=== PATIENT | female | born 1965 | race Two or more races ===

== ENCOUNTER → 2016-08-16 | Day surgery (SDC) | payer OTHER, MEDICARE, MEDICAID ==
[~2016-08-16] VITALS: Ht 167.6 cm; Wt 95.3 kg
[~2016-08-16] MED LIST: ACETAMINOPHEN 325 MG TAB PO PRN; ALLO100T PO; AMLO10TA2 PO; ATEN100T PO; AcetaZOLAMIDE 500 MG ER CAP PO ONE; BETA1CRE EXT; BETAPOW70 TOP; BSS with VANC/TOB/EPI for EYE CASES IR ONE; CALC1CAP PO; CARA1TAB2 PO; CINA30TA PO; COZA50TA PO; CYCLOPENTOLATE 2% OPHTH SOLN OS ONE; D 101TAB PO; D5W/0.2% SODIUM CHLORIDE 250 ML IV SCH; DOXY-278 PO; HEALON DUET (HEALON 10MG/ML 0.55ML & HEALON ENDOCOAT 30MG/ML 0.85ML) As Ordered ONE; HEALON DUET (HEALON 10MG/ML 0.55ML & HEALON ENDOCOAT 30MG/ML 0.85ML) XX ONE; JANU25TA PO; KETOROLAC 0.5% OPHTH SOLN OS ONE; LIDOCAINE 1% SDV 5 ML VIAL As Ordered ONE; LIDOCAINE 1% SDV 5 ML VIAL XX ONE; LIDOCAINE 4% INJ 5 ML AMP OU ONE; LIDOCAINE W/EPINEPHRINE 1% 20ML VIAL XX ONE; LR 1,000 ML IV SCH; MIDAZOLAM INJ 2 MG/2 ML VIAL (J2250) As Ordered ONE; MOXIFLOXACIN IN BSS 0.25MG/0.25ML INTRACAMERAL INJ (OR EYE ONLY)(J2280) As Ordered ONE; MOXIFLOXACIN IN BSS 0.25MG/0.25ML INTRACAMERAL INJ (OR EYE ONLY)(J2280) ICAM ONE; NAPR500T PO; OFLOXACIN 0.3 % (OCUFLOX) OPTH SOL 5ML OS ONE; ONDANSETRON 4MG/2ML VIAL (J2405) As Ordered ONE; ONDANSETRON 4MG/2ML VIAL (J2405) IV PRN; PANT40TA2 PO; PHENYLEPHRINE 2.5% OPHTH SOL 2ML OS ONE; POVIDONE-IODINE 5% OPHTH PREP SOL 30ML As Ordered ONE; PROPARACAINE 0.5% OPHTH SOL 15ML OS PRN; REGL5TAB2 PO; SIMV40TA2 PO; SITA50TAB PO; STOO100C PO; TRIAMCINOLONE PRES FR 40 MG/ML 1ML(TRIESENCE)(OR EYE ONLY)(J3300 PER 1MG) As Ordered ONE; TRIAMCINOLONE PRES FR 40 MG/ML 1ML(TRIESENCE)(OR EYE ONLY)(J3300 PER 1MG) IO ONE; TRIMETHOBENZAMIDE 300 MG CAP PO PRN; TROPICAMIDE 1% OPHTH SOLN 2 ML OS ONE; VITA400C29 PO; VOLT1GEL24 TD; [UNRECOGNIZED DRUG - CODE] EX; [UNRECOGNIZED DRUG - CODE] EXT; [UNRECOGNIZED DRUG - CODE] TOP; [UNRECOGNIZED DRUG - OTHER] TOP; fentaNYL 100 MCG/2 ML INJECTION (J3010) As Ordered ONE
[2016-08-16 11:30] VITALS: BP 106/67
== END | disposition home or self-care (01) ==
LOC: M SDC 09:37
PROVIDERS: ATTEND Ophthalmology
DX: H26.9 Unspecified cataract (principal); I12.0 Hypertensive chronic kidney disease with stage 5 chronic kidney disease or end stage renal disease; E11.22 Type 2 diabetes mellitus with diabetic chronic kidney disease; N18.6 End stage renal disease; E11.40 Type 2 diabetes mellitus with diabetic neuropathy, unspecified; E78.2 Mixed hyperlipidemia; E05.90 Thyrotoxicosis, unspecified without thyrotoxic crisis or storm; G47.9 Sleep disorder, unspecified; L24.9 Irritant contact dermatitis, unspecified cause; Z99.2 Dependence on renal dialysis; Z88.5 Allergy status to narcotic agent; E55.9 Vitamin D deficiency, unspecified; E21.3 Hyperparathyroidism, unspecified; K59.00 Constipation, unspecified; Z79.899 Other long term (current) drug therapy
CPT/HCPCS: 36415; 66984; 84132; J2250; J2280; J2405; J3010; J3300

== ENCOUNTER 2016-09-16 19:12 | Emergency (ER) | payer OTHER, MEDICARE, MEDICAID ==
[~2016-09-16] VITALS: Ht 167.6 cm; Wt 93.4 kg
[~2016-09-16 19:12] MED LIST changes: -ACETAMINOPHEN 325 MG TAB PO PRN; -ALLO100T PO; -AcetaZOLAMIDE 500 MG ER CAP PO ONE; -BETA1CRE EXT; -BETAPOW70 TOP; -BSS with VANC/TOB/EPI for EYE CASES IR ONE; -CARA1TAB2 PO; -CINA30TA PO; -CYCLOPENTOLATE 2% OPHTH SOLN OS ONE; -D 101TAB PO; -D5W/0.2% SODIUM CHLORIDE 250 ML IV SCH; -DOXY-278 PO; -HEALON DUET (HEALON 10MG/ML 0.55ML & HEALON ENDOCOAT 30MG/ML 0.85ML) As Ordered ONE; -HEALON DUET (HEALON 10MG/ML 0.55ML & HEALON ENDOCOAT 30MG/ML 0.85ML) XX ONE; -JANU25TA PO; -KETOROLAC 0.5% OPHTH SOLN OS ONE; -LIDOCAINE 1% SDV 5 ML VIAL As Ordered ONE; -LIDOCAINE 1% SDV 5 ML VIAL XX ONE; -LIDOCAINE 4% INJ 5 ML AMP OU ONE; -LIDOCAINE W/EPINEPHRINE 1% 20ML VIAL XX ONE; -LR 1,000 ML IV SCH; -MIDAZOLAM INJ 2 MG/2 ML VIAL (J2250) As Ordered ONE; -MOXIFLOXACIN IN BSS 0.25MG/0.25ML INTRACAMERAL INJ (OR EYE ONLY)(J2280) As Ordered ONE; -MOXIFLOXACIN IN BSS 0.25MG/0.25ML INTRACAMERAL INJ (OR EYE ONLY)(J2280) ICAM ONE; -NAPR500T PO; -OFLOXACIN 0.3 % (OCUFLOX) OPTH SOL 5ML OS ONE; -ONDANSETRON 4MG/2ML VIAL (J2405) As Ordered ONE; -ONDANSETRON 4MG/2ML VIAL (J2405) IV PRN; -PANT40TA2 PO; -PHENYLEPHRINE 2.5% OPHTH SOL 2ML OS ONE; -POVIDONE-IODINE 5% OPHTH PREP SOL 30ML As Ordered ONE; -PROPARACAINE 0.5% OPHTH SOL 15ML OS PRN; -REGL5TAB2 PO; -STOO100C PO; -TRIAMCINOLONE PRES FR 40 MG/ML 1ML(TRIESENCE)(OR EYE ONLY)(J3300 PER 1MG) As Ordered ONE; -TRIAMCINOLONE PRES FR 40 MG/ML 1ML(TRIESENCE)(OR EYE ONLY)(J3300 PER 1MG) IO ONE; -TRIMETHOBENZAMIDE 300 MG CAP PO PRN; -TROPICAMIDE 1% OPHTH SOLN 2 ML OS ONE; -VITA400C29 PO; -VOLT1GEL24 TD; -[UNRECOGNIZED DRUG - CODE] EX; -[UNRECOGNIZED DRUG - CODE] EXT; -[UNRECOGNIZED DRUG - CODE] TOP; -[UNRECOGNIZED DRUG - OTHER] TOP; -fentaNYL 100 MCG/2 ML INJECTION (J3010) As Ordered ONE
[2016-09-16] MEDS ORDERED: PANT40TA2 PO (19:39)
[2016-09-16] MEDS ORDERED: CINA30TA PO (19:39)
[2016-09-16] MEDS ORDERED: ALLO100T PO (19:39)
[2016-09-16] MEDS ORDERED: [UNRECOGNIZED DRUG - CODE] EX (19:39)
[2016-09-16] MEDS ORDERED: NITROGLYCERIN 0.4 MG SUBL TABLET SL PRN (20:00)
[2016-09-16 20:07] LABS: BASO # 0.1 K/mm3 (0.0-0.2); BASO % 0.7 % (0.0-1.0); EOS # 0.4 K/mm3 (0.0-0.50); EOS % 4.8 % (0.0-3.0); LARGE UNSTAINED CELL # 0.3 K/mm3 (0.0-0.4); LARGE UNSTAINED CELL % 2.9 % (0.0-4.0); LYMPH # 2.6 K/mm3 (1.5-4.5); LYMPH % 28.8 % (24.0-44.0); MEAN CORPUSCULAR HEMOGLOBIN 30.4 pg (27.0-33.0); MEAN CORPUSCULAR HGB CONC 32.4 g/dl (32.0-36.5); MEAN CORPUSCULAR VOLUME 93.8 fl (80.0-96.0); MONO # 0.5 K/mm3 (0.0-0.8); MONO % 6.1 % (0.0-5.0); NEUTROPHILS # 5.1 K/mm3 (1.8-7.7); NEUTROPHILS % 56.8 % (36.0-66.0); PLATELET COUNT, AUTOMATED 209 k/mm3 (150-450); RED CELL DISTRIBUTION WIDTH 15.5 % (11.5-14.5)
[2016-09-16] MEDS ORDERED: methylPREDNISolone INJ 125 MG/2 ML VIAL (J2930) IV ONE (20:15)
[2016-09-16] MEDS ORDERED: diphenhydrAMINE INJ 50MG/ML VIAL (J1200) IV ONE (20:15)
[2016-09-16] MEDS ORDERED: ONDANSETRON 4MG/2ML VIAL (J2405) IV ONE (20:15)
[2016-09-16 20:29] VITALS: BP 136/85
[2016-09-16] MEDS ORDERED: ISOVUE-370 76% 100ML VIAL (Q9967) As Ordered ONE (20:32)
[2016-09-16 20:41] LABS: CALCIUM LEVEL 9.3 MG/DL (8.5-10.1); CREATININE FOR GFR 8.02 MG/DL (0.55-1.02); GLOMERULAR FILTRATION RATE 5.6 (>51); POTASSIUM SERUM 4.5 MEQ/L (3.5-5.1)
--- NOTE | 2016-09-16 21:30 | REPUSA ---
CLINICAL HISTORY: Clinical concern for dissection. TECHNIQUE: CT chest with IV contrast. COMPARISON: No pertinent prior studies are available at this time. CT CHEST WITH CONTRAST: Pulmonary arteries: The central pulmonary arteries are patent. Lungs: No pneumothorax, infiltrate, masses or effusion. Heart: Normal size. No significant effusion. Aorta: Normal caliber, without aneurysm or dissection. Mediastinum and jazmyn: No lymphadenopathy. Bony thorax: No acute findings. Stomach: Small hiatal hernia noted. IMPRESSION: No acute thoracic process. No evidence of aortic aneurysm or dissection.
--- NOTE | 2016-09-16 21:40 | REPUSA ---
CLINICAL HISTORY: Clinical concern for dissection. TECHNIQUE: CT abdomen and pelvis following administration of IV contrast. COMPARISON: No pertinent prior studies are available at this time. CT ABDOMEN WITH CONTRAST: Stomach: Small hiatal hernia noted. Liver: No intrahepatic ductal dilation. Gallbladder: Normally distended. Pancreas: No pancreatic duct dilation. Bowel loops: Nondistended. Spleen: Normal size. Adrenals: Normal size. Kidneys: No stones or hydronephrosis. The renal cortices are thinned, consistent with chronic kidney disease. Aorta: Normal caliber. Peritoneum: No free air. CT PELVIS WITH CONTRAST: Colon: Nondistended. Appendix: Normal appendix is seen. Bladder: Normally distended. Pelvic organs: Patient appears to be status post hysterectomy. On axial image 128, there is a 3 cm ro unded lesion associated with the left adnexa. Peritoneum: No fluid. Skeleton: Degenerative cysts of the bilateral acetabular roofs. IMPRESSION: 1. No evidence of aortic dissection or aneurysm. 2. Hiatal hernia. 3. Renal cortical thinning suggesting chronic kidney disease. 4. 3 cm lesion or isodense cyst associated with the left adnexa. Correlate with pelvic ultrasound. Th e patient appears to be status post hysterectomy.
[2016-09-16] MEDS ORDERED: GI COCKTAIL 50ML BTL(HYOSCYAMINE/MAALOX/LIDOCAINE VISCOUS)(1:3:1) PO ONE (22:30)
[2016-09-16] MEDS ORDERED: CARA1TAB2 PO (23:37)
[2016-09-16 23:40] VITALS: BP 158/88
--- NOTE | 2016-09-17 06:42 | ECGEPIP ---
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
--- NOTE | 2016-09-17 19:34 | ED PDOC ---
Provider Note dr radha chavez faxed formal report of ct abd/p for Waldo Johnson MD Sep 17, 2016 19:34
--- NOTE | 2016-09-17 19:46 | ECGEPIP ---
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
[2016-09-27] MEDS ORDERED: DOXY-278 PO (10:12)
[2016-09-27] MEDS ORDERED: STOO100C PO (10:12)
[2016-09-27] MEDS ORDERED: BETAPOW70 TOP (10:12)
[2016-09-27] MEDS ORDERED: VITA400C29 PO (10:12)
[2016-09-27] MEDS ORDERED: [UNRECOGNIZED DRUG - OTHER] TOP (10:12)
[2016-09-27] MEDS ORDERED: [UNRECOGNIZED DRUG - CODE] EXT (10:12)
== END 2016-09-17 00:12 | disposition home or self-care (01) ==
LOC: M ED 20:31
DX: R07.89 Other chest pain (principal); K44.9 Diaphragmatic hernia without obstruction or gangrene; E11.22 Type 2 diabetes mellitus with diabetic chronic kidney disease; I25.10 Atherosclerotic heart disease of native coronary artery without angina pectoris; N18.9 Chronic kidney disease, unspecified; Z99.2 Dependence on renal dialysis; Z79.899 Other long term (current) drug therapy; Z79.2 Long term (current) use of antibiotics; Z79.84 Long term (current) use of oral hypoglycemic drugs; Z88.5 Allergy status to narcotic agent; Z91.013 Allergy to seafood
CPT/HCPCS: 36415; 71275; 74177; 80048; 82550; 82553; 85025; 93005; 93041; 94760; 96374; 96375; 99285; J1200; J2405; J2930; Q9967

== ENCOUNTER → 2016-10-04 | Day surgery (SDC) | payer OTHER, MEDICARE, MEDICAID ==
[~2016-10-04] VITALS: Ht 167.6 cm; Wt 93.0 kg
[~2016-10-04] MED LIST changes: +ACETAMINOPHEN 325 MG TAB PO PRN; +ALLO100T PO; +AcetaZOLAMIDE 500 MG ER CAP PO ONE; +BETA1CRE EXT; +BETAPOW70 TOP; +BSS with VANC/TOB/EPI for EYE CASES IR ONE; +CARA1TAB2 PO; +CINA30TA PO; +CYCLOPENTOLATE 2% OPHTH SOLN OD ONE; +D 101TAB PO; +D5W/0.2% SODIUM CHLORIDE 1,000 ML IV SCH; +DOXY-278 PO; +HEALON DUET (HEALON 10MG/ML 0.55ML & HEALON ENDOCOAT 30MG/ML 0.85ML) As Ordered ONE; +JANU25TA PO; +KETOROLAC 0.5% OPHTH SOLN OD ONE; +LIDOCAINE 1% SDV 5 ML VIAL As Ordered ONE; +LIDOCAINE 4% INJ 5 ML AMP OU ONE; +LIDOCAINE W/EPINEPHRINE 1% 20ML VIAL As Ordered ONE; +MIDAZOLAM INJ 2 MG/2 ML VIAL (J2250) As Ordered ONE; +MOXIFLOXACIN IN BSS 0.25MG/0.25ML INTRACAMERAL INJ (OR EYE ONLY)(J2280) As Ordered ONE; +NAPR500T PO; +OFLOXACIN 0.3 % (OCUFLOX) OPTH SOL 5ML OD ONE; +ONDANSETRON 4MG/2ML VIAL (J2405) As Ordered ONE; +ONDANSETRON 4MG/2ML VIAL (J2405) IV PRN; +PANT40TA2 PO; +PHENYLEPHRINE 2.5% OPHTH SOL 2ML OD ONE; +POVIDONE-IODINE 5% OPHTH PREP SOL 30ML As Ordered ONE; +PROPARACAINE 0.5% OPHTH SOL 15ML OD PRN; +REGL5TAB2 PO; +STOO100C PO; +TRIAMCINOLONE PRES FR 40 MG/ML 1ML(TRIESENCE)(OR EYE ONLY)(J3300 PER 1MG) As Ordered ONE; +TRIMETHOBENZAMIDE 300 MG CAP PO PRN; +TROPICAMIDE 1% OPHTH SOLN 2 ML OD ONE; +VITA400C29 PO; +VOLT1GEL24 TD; +[UNRECOGNIZED DRUG - CODE] EX; +[UNRECOGNIZED DRUG - CODE] EXT; +[UNRECOGNIZED DRUG - CODE] TOP; +[UNRECOGNIZED DRUG - OTHER] TOP; +fentaNYL 100 MCG/2 ML INJECTION (J3010) As Ordered ONE
[2016-10-04 08:20] VITALS: BP 132/78
== END | disposition home or self-care (01) ==
LOC: M SDC 05:54
PROVIDERS: ATTEND Ophthalmology
DX: H26.9 Unspecified cataract (principal); I12.0 Hypertensive chronic kidney disease with stage 5 chronic kidney disease or end stage renal disease; E78.5 Hyperlipidemia, unspecified; E11.22 Type 2 diabetes mellitus with diabetic chronic kidney disease; E03.9 Hypothyroidism, unspecified; K44.9 Diaphragmatic hernia without obstruction or gangrene; K21.9 Gastro-esophageal reflux disease without esophagitis; D64.9 Anemia, unspecified; J45.909 Unspecified asthma, uncomplicated; R06.83 Snoring; N18.6 End stage renal disease; Z88.5 Allergy status to narcotic agent; Z79.899 Other long term (current) drug therapy; Z90.710 Acquired absence of both cervix and uterus; Z98.51 Tubal ligation status
CPT/HCPCS: 36415; 66984; 84132; J2250; J2280; J2405; J3010; J3300; V2632

== ENCOUNTER 2016-10-14 14:42 | Observation (INO) | payer OTHER, MEDICARE, MEDICAID ==
[~2016-10-14] VITALS: Ht 167.6 cm; Wt 95.2 kg
[~2016-10-14 14:42] MED LIST changes: -ACETAMINOPHEN 325 MG TAB PO PRN; -AcetaZOLAMIDE 500 MG ER CAP PO ONE; -BETA1CRE EXT; -BSS with VANC/TOB/EPI for EYE CASES IR ONE; -CYCLOPENTOLATE 2% OPHTH SOLN OD ONE; -D 101TAB PO; -D5W/0.2% SODIUM CHLORIDE 1,000 ML IV SCH; -HEALON DUET (HEALON 10MG/ML 0.55ML & HEALON ENDOCOAT 30MG/ML 0.85ML) As Ordered ONE; -JANU25TA PO; -KETOROLAC 0.5% OPHTH SOLN OD ONE; -LIDOCAINE 1% SDV 5 ML VIAL As Ordered ONE; -LIDOCAINE 4% INJ 5 ML AMP OU ONE; -LIDOCAINE W/EPINEPHRINE 1% 20ML VIAL As Ordered ONE; -MIDAZOLAM INJ 2 MG/2 ML VIAL (J2250) As Ordered ONE; -MOXIFLOXACIN IN BSS 0.25MG/0.25ML INTRACAMERAL INJ (OR EYE ONLY)(J2280) As Ordered ONE; -NAPR500T PO; -OFLOXACIN 0.3 % (OCUFLOX) OPTH SOL 5ML OD ONE; -ONDANSETRON 4MG/2ML VIAL (J2405) As Ordered ONE; -ONDANSETRON 4MG/2ML VIAL (J2405) IV PRN; -PHENYLEPHRINE 2.5% OPHTH SOL 2ML OD ONE; -POVIDONE-IODINE 5% OPHTH PREP SOL 30ML As Ordered ONE; -PROPARACAINE 0.5% OPHTH SOL 15ML OD PRN; -REGL5TAB2 PO; -TRIAMCINOLONE PRES FR 40 MG/ML 1ML(TRIESENCE)(OR EYE ONLY)(J3300 PER 1MG) As Ordered ONE; -TRIMETHOBENZAMIDE 300 MG CAP PO PRN; -TROPICAMIDE 1% OPHTH SOLN 2 ML OD ONE; -VOLT1GEL24 TD; -[UNRECOGNIZED DRUG - CODE] TOP; -fentaNYL 100 MCG/2 ML INJECTION (J3010) As Ordered ONE
[2016-10-14] MEDS ORDERED: ONDANSETRON 4MG/2ML VIAL (J2405) IV ONE (15:00)
[2016-10-14 15:33] LABS: BASO # 0.1 K/mm3 (0.0-0.2); BASO % 0.7 % (0.0-1.0); EOS # 0.5 K/mm3 (0.0-0.50); EOS % 5.2 % (0.0-3.0); LARGE UNSTAINED CELL # 0.2 K/mm3 (0.0-0.4); LARGE UNSTAINED CELL % 2.7 % (0.0-4.0); LYMPH % 18.9 % (24.0-44.0); MEAN CORPUSCULAR HEMOGLOBIN 31.7 pg (27.0-33.0); MEAN CORPUSCULAR HGB CONC 32.1 g/dl (32.0-36.5); MEAN CORPUSCULAR VOLUME 98.6 fl (80.0-96.0); MONO # 0.6 K/mm3 (0.0-0.8); MONO % 6.5 % (0.0-5.0); PLATELET COUNT, AUTOMATED 188 k/mm3 (150-450); RED CELL DISTRIBUTION WIDTH 17.3 % (11.5-14.5); WHITE BLOOD COUNT 9.1 K/mm3 (4.0-10.0)
[2016-10-14 15:57] LABS: ALBUMIN 3.6 GM/DL (3.2-5.2); ALBUMIN/GLOBULIN RATIO 0.68 (1.00-1.93); ALKALINE PHOSPHATASE 71 U/L (45-117); ALT/SGPT 17 U/L (12-78); ANION GAP 6 MEQ/L (8-16); AST/SGOT 11 U/L (15-37); BILIRUBIN,DIRECT < 0.1 MG/DL (0.0-0.2); BILIRUBIN,TOTAL 0.4 MG/DL (0.2-1.0); BLOOD UREA NITROGEN 26 MG/DL (7-18); CALCIUM LEVEL 8.7 MG/DL (8.5-10.1); CARBON DIOXIDE LEVEL 33 MEQ/L (21-32); CHLORIDE LEVEL 99 MEQ/L (98-107); CREATININE FOR GFR 6.23 MG/DL (0.55-1.02); GLOMERULAR FILTRATION RATE 7.5 (>51); GLUCOSE, FASTING 102 MG/DL (70-105); SODIUM LEVEL 138 MEQ/L (136-145); TOTAL PROTEIN 8.9 GM/DL (6.4-8.2)
[2016-10-14] MEDS ORDERED: VOLT1GEL24 TD (16:58)
[2016-10-14] MEDS ORDERED: REGL5TAB2 PO (16:58)
[2016-10-14] MEDS ORDERED: BISACODYL 5 MG TAB PO PRN (17:15)
[2016-10-14] MEDS ORDERED: ONDANSETRON 4MG/2ML VIAL (J2405) IV PRN (17:15)
[2016-10-14] MEDS ORDERED: GLUCOSE 4 GM CHEW TABLET PO PRN (17:30)
[2016-10-14] MEDS ORDERED: GLUCAGON FOR INJ 1 MG VIAL (J1610) SC PRN (17:30)
[2016-10-14] MEDS: SUCRALFATE 1 GM TAB PO SCH ×3 (17:30→21:21)
[2016-10-14] MEDS: HumaLOG INSULIN (NovoLOG) PER UNIT SC SCH ×2 (17:30→21:04)
[2016-10-14] MEDS ORDERED: DEXTROSE 50% 50 ML SYRINGE IV PRN (17:30)
[2016-10-14] MEDS ORDERED: METOCLOPRAMIDE 5 MG TAB PO PRN (17:30)
[2016-10-14] MEDS ORDERED: BETA1CRE EXT (17:39)
[2016-10-14] MEDS ORDERED: D 101TAB PO (17:43)
[2016-10-14] MEDS ORDERED: JANU25TA PO (17:49)
[2016-10-14] MEDS ORDERED: CARA1TAB2 PO (17:49)
[2016-10-14] MEDS ORDERED: [UNRECOGNIZED DRUG - CODE] TOP (17:51)
--- NOTE | 2016-10-14 18:47 | HPEPDOC ---
General Date of Admission Oct 14, 2016 at 17:33 Primary Care Physician: MARY CASTILLO DO Chief Complaint The patient is a 51-year-old female admitted with a reason for visit of AMS. Source: Patient, Family Exam Limitations: Other (pt has decreased memory of events that occurred this morning prior to her dialysis treatment) Timing/Duration: 4-6 hours Severity: Severe History of Present Illness Ms Posadas is a 51 y/o female with past medical history of HTN, DM2, chronic kidney disease on dialysis, asthma and hyperlipidemia who presents today after she was in dialysis this afternoon and "fell asleep". The patient reports that she remembers going to dialysis and beginning treatment but thinks she fell asleep after that, she has no idea why she is in the ED now. She can tell me her full name, but does not know the month unless she looks at a calender, she did not know who the president of the was, she did know she was at [facility] in [place], [place] because she looked down at a paper that contained the [facility] name and location. Per her daughters who are at bedside, they state this is not her baseline and she is usually spry and alert. She was seen here in the ED in the fall of 2015 for atypical CP that was thought to be due to a hiatal hernia, but per the daughter she states her mother had a similar episode of decreased memory that lasted for a few hours at that time. The patient denies experiencing any CP, SOB , admits to chronic nausea and vomiting from dialysis, she denies diarrhea or constipation, fever, chills or rigors, denies abdominal pain.The patient does admit that she has had a productive cough of clear yellow phlegm for the past few days and a reported temperature of >100F nights ago. She denies headache or blurred vision, denies numbness or weakness to any part of her body except for this morning when she states she woke up with right foot numbness that went away after a couple hours, this was new for her. There have been no change in her medications, she attends dialysis three times a week ( T,R ,S) and has not missed any appts. She takes her medications religiously, and her appetite has been normal. The last thing she remembers is being at dialysis , she remembers bits and pieces of her morning at home but cannot recall making breakfast for her family or taking care of her grandchildren, activities her daughters say she partook in this morning. Home Medications Scheduled Allopurinol (Allopurinol) 100 Mg Tab 100 MG PO DAILY (Reported) Amlodipine Besylate (Amlodipine Besylate) 10 Mg Tab 10 MG PO QHS (Reported) Atenolol (Atenolol) 100 Mg Tab 100 MG PO QHS (Reported) Benzoyl Peroxide (Advanced Acne Wash) 4.4 % Liq 1 DOSE EXT DAILY (Reported) applies to face Calcium Acetate (Calcium Acetate) 667 Mg Cap 1,334 MG PO WM (Reported) takes additional 2 capsules with snacks Cholecalciferol (D 1000) 1,000 Unit Tab 1,000 UNIT PO DAILY (Reported) Cinacalcet Hydrochloride (Sensipar) 30 Mg Tab 30 MG PO 1XWK (Reported) unknown which day of the week pt takes, can't give me last dose Docusate Sodium (Stool Softener) 100 Mg Cap 200 MG PO BID (Reported) Doxycycline Hyclate (Doxycycline) 100 Mg Cap 100 MG PO DAILY (Reported) Losartan Potassium (Cozaar) 50 Mg Tab 50 MG PO QHS (Reported) Pantoprazole Sodium (Pantoprazole Sodium) 40 Mg Tab 40 MG PO DAILY (Reported) Simvastatin - High Dose (Simvastatin) 40 Mg Tab 40 MG PO QHS (Reported) Sitagliptin Phosphate (Januvia) 25 Mg Tab 25 MG PO QHS (Reported) Tretinoin (Tretinoin) 0.1 % Cre 1 DOSE TOP BID (Reported) applies to face Scheduled PRN (Voltaren) 1 % Gel 1 % TD DAILY PRN PRN knee pain (Reported) Betamethasone Dipropionate (Betamethasone Dipropionat) 15 Gm Cream 1 DOSE EXT DAILY PRN PRN ITCHING (Reported) applies to ears Metoclopramide Hcl (Reglan) 5 Mg Tab 5 MG PO ACHS PRN PRN NAUSEA OR VOMITING ( Reported) Allergies Coded Allergies: Hydrocodone (Verified Adverse Reaction, Mild, N/V, 08/14/16) Morphine (Verified Adverse Reaction, Mild, N/V, 08/14/16) Past Medical History Medical History HTN hyperlipidemia DM2 Chronic kidney disease on dialysis asthma Surgical History hysterectomy b/l cataract surgery left carpal tunnel release Family History Significant Family History: Diabetes, Hyperlipidemia, Other (stroke in mother) Social History * Smoker: Denies Alcohol: Denies Drugs: denies Psychosocial History: No pertinent psych hx retired, lives at home Review of Symptoms Constitutional: Denies: Chills, Fatigue, Fever, Malaise, Night Sweats, Weakness , Weight Loss Eyes: Denies: Conjunctivae inflammation, Eyelid inflammation, Pain, Redness, Vision change ENT: Denies: Dysphagia, Ear Pain, Head Aches, Sinus Congestion Skin: Denies: Jaundice, Lesions, Rash Pulmonary: Denies: Cough, Dyspnea, Pleuritic Chest Pain Cardiovascular: Denies: Chest Pain, Edema, Lt Headedness, Orthopnea, Palpitations, Paroxysmal Noc. Dyspnea Gastrointestinal: Denies: Abdominal Pain, Constipation, Diarrhea, Nausea, Vomiting Genitourinary: Denies: Dysuria Neurological: Reports: Confusion, Denies: Change in speech, Incoordination, Numbness, Weakness Psych: Reports: Memory Issues, Mood Normal Physical Examination General Exam: Positive: Alert, Cooperative, Moderate Distress, Other (knows her own name, cannot tell me the president nor month, knows where she is by looking at paper with the hospital name and location ) Eye Exam: Positive: Conjunctiva & lids normal, EOMI, PERRLA, Negative: Ptosis, Sclera icteric ENT Exam: Positive: Atraumatic, Mucous membr. moist/pink, Nares Patent, Pharynx Normal, Tongue Midline, Negative: Pharyngeal Edema Neck Exam: Positive: Supple Chest Exam: Positive: Clear to auscultation, Normal air movement, Negative: Diminished, Rales, Rhonchi, Wheezing Heart Exam: Positive: Normal S1, Normal S2, Rate Normal, Regular Rhythm, Negative: Bradycardic, Tachycardic Telemetry: Positive: No significant arrhythmia Abdomen Exam: Positive: Normal bowel sounds, Negative: BS Hyperactive, BS Hypoactive, Hepatospenomegaly, Mass, Soft, Tenderness Extremity Exam: Positive: Normal pulses, Negative: Clubbing, Cyanosis, Edema Skin Exam: Positive: Nl turgor and temperature, Negative: Breakdown, Rash Neuro Exam: Positive: Cranial Nerves 3-12 NL, Normal Speech, Normal Tone, Sensation Intact, Strength at 5/5 X4 ext Psych Exam: Positive: Mental status NL, Negative: Anxiety, Memory Intact, Oriented x 3 Vital Signs Vital Signs Date Time Temp Pulse Resp B/P Pulse Ox O2 Delivery O2 Flow Rate FiO2 10/14/16 18:25 98.5 10/14/16 18:12 69 18 96 10/14/16 18:01 156/78 10/14/16 15:57 Room Air Laboratory Data Labs 24H Laboratory Tests 2 10/14/16 15:13: Aspartate Amino Transf (AST/SGOT) 11L, Alanine Aminotransferase (ALT/SGPT) 17, Alkaline Phosphatase 71, Total Bilirubin 0.4, Direct Bilirubin < 0.1, Albumin 3.6, Albumin/Globulin Ratio 0.68L, Anion Gap 6L, White Blood Count 9.1, Red Blood Count 3.76L, Hemoglobin 11.9L, Hematocrit 37.0, Mean Corpuscular Volume 98.6H, Mean Corpuscular Hemoglobin 31.7, Mean Corpuscular Hemoglobin Concent 32.1, Red Cell Distribution Width 17.3H, Platelet Count 188, Neutrophils (%) ( Auto) 66.0, Lymphocytes (%) (Auto) 18.9L, Monocytes (%) (Auto) 6.5H, Eosinophils (%) (Auto) 5.2H, Basophils (%) (Auto) 0.7, Neutrophils # (Auto) 6.0 , Lymphocytes # (Auto) 2.0, Monocytes # (Auto) 0.6, Eosinophils # (Auto) 0.5, Basophils # (Auto) 0.1, Calcium Level 8.7, Creatine Kinase MB 1.0, Creatine Kinase MB Relative Index 1.14, Glomerular Filtration Rate 7.5L, Large Unclassified Cells # 0.2, Large Unclassified Cells % 2.7, Thyroid Stimulating Hormone (TSH) 3.510, Total Creatine Kinase 87, Total Protein 8.9H, Troponin I 0.02 10/14/16 17:43: Ammonia 44H CBC/BMP Laboratory Tests 10/14/16 15:13 Red Blood Count 3.76 L, Mean Corpuscular Volume 98.6 H, Mean Corpuscular Hemoglobin 31.7, Mean Corpuscular Hemoglobin Concent 32.1, Red Cell Distribution Width 17.3 H, Neutrophils (%) (Auto) 66.0, Lymphocytes (%) (Auto) 18.9 L, Monocytes (%) (Auto) 6.5 H, Eosinophils (%) (Auto) 5.2 H, Basophils (%) (Auto) 0.7, Neutrophils # (Auto) 6.0, Lymphocytes # (Auto) 2.0, Monocytes # ( Auto) 0.6, Eosinophils # (Auto) 0.5, Basophils # (Auto) 0.1 Problems (1) Hyperlipidemia Status: Chronic Response to Treatment: Stable Problem Text: continue home medications (2) Altered mental status Status: Acute Response to Treatment: Stable Problem Text: head CT and MRI pending ammonia elevated to 44 EKG in ED non concerning for arrhythmic focus trend troponins possible infectious etiology- will check U/A, currently afebrile with wbc of 9.1 neuro checks q4h (3) Hypertension Status: Chronic Response to Treatment: Stable Problem Text: continue home medications currently 155/89 (4) Diabetes Status: Chronic Response to Treatment: Stable Problem Text: Sliding scale coverage (5) Hepatic encephalopathy Status: Acute Response to Treatment: Stable Problem Text: elevated ammonia to 44 will give lactulose and repeat ammonia at midnight (6) ESRD (end stage renal disease) on dialysis Status: Acute Problem Text: Nephrology consulted- appreciate their recommendations Strict I&O's D5W fluid (7) DVT prophylaxis Status: Acute Problem Text: SCDs Plan / VTE VTE Prophylaxis Ordered?: Yes GME ATTESTATION GME ATTESTATION My preceptor for this patient encounter was physically present in the building during the encounter and was fully available. As needed, all aspects of the patient interview, examination, medical decision making process, and medical care plan development were reviewed and approved by the preceptor. Preceptor is aware and concurs with the plan as stated in the body of this note and will attest to such by his/her cosignature. SHAMAR CHAPMAN DO Oct 14, 2016 18:47
--- NOTE | 2016-10-14 20:40 | REPUSA ---
MRI of the brain Clinical history: confusion, memory loss. Comparison: none. Technique: Multiecho multiplanar MRI images of the brain were obtained without administration of cont rast. Diffusion weighted images with ADC mapping was also obtained. Findings: The ventricles and sulci are symmetric bilaterally. The brain parenchyma demonstrates uniform and nor mal signal on all sequences. There is no midline shift, mass effect, or extra-axial fluid collection. The midline intracranial structures do not demonstrate any gross abnormalities. The cervical cranial junction is intact. The orbits are unremarkable. The visualized paranasal sinuses and mastoid air ce lls are clear. The osseous structures and superficial soft tissues are unremarkable. The vascular str uctures demonstrate appropriate flow voids. Impression: Normal MRI of the Brain.
[2016-10-14] MEDS: PANTOPRAZOLE 40MG TAB (PROTONIX) PO SCH (21:04)
[2016-10-14] MEDS: DOCUSATE SODIUM 100 MG CAP PO SCH (21:11)
[2016-10-14] MEDS: LACTULOSE 20 GM/30 ML SYRUP UD PO SCH ×3 (21:19→23:30)
[2016-10-14] MEDS: amLODIPine 10 MG TAB PO SCH (21:19)
[2016-10-14] MEDS: ATENOLOL 50 MG TAB PO SCH (21:19)
[2016-10-14] MEDS: LOSARTAN 50 MG TAB PO SCH (21:19)
[2016-10-14] MEDS: SITagliptin 50 MG TAB (JANUVIA) PO SCH (21:20)
[2016-10-14 21:30] VITALS: BP 135/83
[2016-10-14] MEDS: SIMVASTATIN 40 MG TAB PO SCH (21:30)
[2016-10-14 22:50] VITALS: BP 138/78
[2016-10-15] VITALS (7 sets, daily range): BP systolic 103–158; BP diastolic 57–86
[2016-10-15] MEDS ORDERED: CALCIUM ACETATE 667 MG GELCAP PO PRN (03:45)
[2016-10-15 05:58] LABS: BASO % 0.6 % (0.0-1.0); EOS # 0.5 K/mm3 (0.0-0.50); EOS % 5.9 % (0.0-3.0); LARGE UNSTAINED CELL # 0.5 K/mm3 (0.0-0.4); LYMPH # 2.8 K/mm3 (1.5-4.5); LYMPH % 26.6 % (24.0-44.0); MEAN CORPUSCULAR HEMOGLOBIN 31.1 pg (27.0-33.0); MEAN CORPUSCULAR HGB CONC 31.1 g/dl (32.0-36.5); MONO # 0.8 K/mm3 (0.0-0.8); MONO % 8.7 % (0.0-5.0); NEUTROPHILS # 4.7 K/mm3 (1.8-7.7); NEUTROPHILS % 53.2 % (36.0-66.0); PLATELET COUNT, AUTOMATED 174 k/mm3 (150-450); RED CELL DISTRIBUTION WIDTH 17.3 % (11.5-14.5); WHITE BLOOD COUNT 8.8 K/mm3 (4.0-10.0)
[2016-10-15 06:22] LABS: CALCIUM LEVEL 8.3 MG/DL (8.5-10.1); CREATININE FOR GFR 9.33 MG/DL (0.55-1.02); GLOMERULAR FILTRATION RATE 4.7 (>51); POTASSIUM SERUM 4.7 MEQ/L (3.5-5.1)
[2016-10-15] MEDS: HumaLOG INSULIN (NovoLOG) PER UNIT SC SCH ×4 (07:04→21:00)
--- NOTE | 2016-10-15 07:26 | REP ---
AP PORTABLE CHEST: 10/14/2016. Clinical history: Altered mental status. Comparison: CT angiogram chest 09/16/2016. Findings: Lungs are hypoinflated. This exaggerates the heart size. There is slight tortuosity of the aorta but no aneurysm. Airway is intact. Crowded markings in the bases. No dense consolidation, effusion, lateral pleural thickening. No apical scarring or pneumothorax. Bones grossly intact. Impression: 1. Hypoinflated chest with crowded markings in the lung bases without definite consolidation, effusion, pleural thickening or mass. The portable chest magnifies heart size and aortic tortuosity but no acute finding. Signed by Christian Bagley MD 10/15/2016 08:04 A
--- NOTE | 2016-10-15 07:27 | REP ---
CT BRAIN WITHOUT CONTRAST: 10/14/2016. Clinical history: Altered mental status. Findings: There are no prior pertinent studies. Soft tissue and bone windows are reviewed for each slice level. Ventricles are midline, symmetric and without dilatation or displacement. Basal ganglia are symmetric and normal. A few benign calcifications are seen along the falx. The stinson-white junction differentiation is well maintained. There is no vascular territory infarct, intracranial hemorrhage, mass or mass effect. The cortical stripe is preserved. There is no atrophy. Brainstem and cerebellum are grossly intact. The basal cisterns are unremarkable. Mastoids and visualized sinuses were clear. The calvarium and skull base were unremarkable. Impression: 1. Negative CT brain for any acute finding. No intracranial bleed, mass, edema or other abnormality. Signed by Christian Bagley MD 10/15/2016 08:05 A
[2016-10-15] MEDS: SUCRALFATE 1 GM TAB PO SCH ×4 (07:52→21:09)
[2016-10-15] MEDS: CALCIUM ACETATE 667 MG GELCAP PO SCH ×3 (08:02→17:35)
[2016-10-15] MEDS ORDERED: CINACALCET 30 MG TAB (SENSIPAR) PO SCH (09:00)
[2016-10-15] MEDS: PANTOPRAZOLE 40MG TAB (PROTONIX) PO SCH (09:05)
[2016-10-15] MEDS: VITAMIN D 1,000 INTERNATIONAL UNITS TABLET PO SCH (09:05)
[2016-10-15] MEDS: ALLOPURINOL 100 MG TAB PO SCH (09:05)
[2016-10-15] MEDS: DOCUSATE SODIUM 100 MG CAP PO SCH ×2 (09:05→21:08)
[2016-10-15 09:22] LABS: MAGNESIUM LEVEL 2.5 MG/DL (1.8-2.4)
--- NOTE | 2016-10-15 11:33 | REP ---
CT CHEST WITHOUT CONTRAST: 10/15/2016. Comparison: Portable chest 10/14/2016, CTA chest 09/16/2016. Clinical history: Suspected infiltrate. Technique: Helical scanning through the chest without IV contrast with both coronal and sagittal reconstructions and soft tissue windows and lung window coronal MIP thick slab reformat. Findings: The lung sun are well inflated. There is no pleural effusion, pleural-based mass or acute infiltrate. I see no definite parenchymal nodule or mass. No apical scarring or pneumothorax and no pneumomediastinum. Heart is mildly enlarged with left atrial and ventricular enlargement. There is no pericardial thickening or effusion. No pathologic sized mediastinal or hilar adenopathy. Some calcifications noted at the aortic arch but no aneurysm. No hilar mass. The axillary and supraclavicular regions are without focal abnormality. The bone windows show some degenerative changes mid and lower thoracic spine without compression deformity. Sternum, manubrium, clavicles, AC joints and glenohumeral joints show only mild degenerative change without destructive lesions. Scapula and ribs and posterior elements of the spine unremarkable. In the upper abdomen, visible portions of the liver show no focal lesion. The liver is not enlarged. There is no splenomegaly or focal splenic lesion. Small hiatal hernia suggested. The gallbladder is contracted without a calcified stone visible. Visualized loops of colon in the flexures and portions of transverse colon included were unremarkable. Small bowel loops intact. Adrenal glands normal. Kidneys are severely atrophic with sinus lipomatosis. A small cyst about 7 mm and another about 5 mm laterally upper pole on the right. No stone or hydronephrosis. Impression: 1. No CT evidence of infiltrate, effusion, atelectasis or mass. No pulmonary nodule. Nothing acute. 2. Small hiatal hernia. 3. Cardiomegaly with left atrial and ventricular enlargement. No pericardial effusion. 4. Advanced atrophy of the kidneys with cortical thinning and sinus lipomatosis. No hydronephrosis or solid mass. A few small cysts on the right kidney. Signed by Christian Bagley MD 10/15/2016 07:30 P
[2016-10-15] MEDS: ACETAMINOPHEN TAB 650MG DOSE (2X325MG) PO PRN (11:57)
--- NOTE | 2016-10-15 12:09 | CR ---
DATE OF CONSULTATION: 10/14/2016 Consultation report for Donna Augustine MD. Reason for consultation is altered mentation in this lady with end-stage renal disease. HISTORY OF PRESENT ILLNESS: Ms. Oconnor is a 51-year-old female with known history of end-stage renal disease, hypertension, diabetes and hyperlipidemia. She came for her regular dialysis treatment as an outpatient. However, she was somewhat restless. She did fall asleep during dialysis and at the end of treatment she was found to be quite confused. She could not recall how did she arrive to dialysis unit. Her mentation did not improve after several minutes of waiting due to which she was sent to emergency room for evaluation. CAT scan of head and labs have been checked, which are appropriate. There is no obvious reason for her altered mentation. She is being admitted for observation due to memory deficit. At present, she is able to talk and answer questions. She does not seem to be too far from her baseline mentation. PAST MEDICAL AND SURGICAL HISTORY: Significant for: 1. Hypertension. 2. Diabetes. 3. Hyperlipidemia. 4. End-stage renal disease. 5. Asthma. 6. Gout. 7. Secondary hyperparathyroidism. 8. Acne. MEDICATIONS: Home medications include: - allopurinol 100 mg daily - amlodipine 10 mg daily - atenolol 100 mg daily - calcium acetate two capsules with each meal - vitamin D 1000 units daily - Sensipar 30 mg once a week - Colace 100 mg twice a day - doxycycline 100 mg daily - losartan 50 mg at bedtime - Protonix 40 mg daily - simvastatin 40 mg at bedtime - Januvia 25 mg at bedtime - tretinoin 0.1% cream twice a day ALLERGIES: Patient reports allergy to HYDROCODONE and MORPHINE. PERSONAL AND SOCIAL HISTORY: Patient has no history of alcohol, drug or tobacco use. Family history is negative for premature strokes. There is no past family history for end-stage renal disease. She does have diabetes and hyperlipidemia in her family. REVIEW OF SYSTEMS: At the time of my visit in the emergency room, patient is able to answer all questions. She has no fever or chills. She denies any headache. Ears, nose and throat are unremarkable. Cardiovascular system negative for dyspnea or chest pain. Respiratory system negative for cough or hemoptysis. Gastrointestinal (GI) system is negative for vomiting or diarrhea. She denies any abdominal pain. Genitourinary () system is significant for end-stage renal disease. There is no dysuria or hematuria reported. Endocrine system is significant for diabetes and hyperlipidemia. Psychosocial system is negative for anxiety or depression. Neurological system is negative for seizure or stroke previously. Musculoskeletal system is significant for history of gout. She has no leg edema. Other systems reviewed and are unremarkable. PHYSICAL EXAMINATION: Temperature 98.3 degrees Fahrenheit, heart rate 72 per minute and respiratory rate 18 per minute. Blood pressure 135/83 mmHg and oxygen saturation 98% on room air. Ears, nose and throat are unremarkable. Pupils equal and reactive to light and sclera is anicteric. Neck is supple and without jugular venous distention (JVD) or thyroid enlargement. Heart sounds are regular and lungs clear to auscultation bilaterally. Abdomen soft and nontender. There is no palpable organomegaly and bowel sounds are normal. Extremities have no cyanosis or clubbing. Skin has no rash or ulcers. Neurologically, she is awake and alert and seems to be at about her baseline mentation. LABORATORY DATA: WBC count 9.1, hemoglobin 11.9 and hematocrit 37.0. Platelets 188. Sodium 138 and potassium 4.0. BUN 26 and creatinine 6.23. Serum ammonia level is 44. Total protein 8.9 and albumin 3.6. TSH 3.51. Urinalysis showed only 3 WBCs and [address] scan of head is unremarkable. PROBLEMS: 1. End-stage renal disease. Patient was dialyzed today prior to arrival to the emergency room. She completed her dialysis treatment. Her labs are appropriate and volume status is well-compensated. We will monitor her and at this point, there is no emergent need for further dialysis. 2. Altered mentation. Etiology remains uncertain. She did not have any significant hypotension during dialysis treatment today. Her dialysis treatment was uneventful other than restlessness. She denies using any new medication. There is certainly no evidence of uremic encephalopathy. She just had her MRI of brain and results are pending at the time of my visit. She does not seem to have any acute infection. However, does have a history of some cough and cold. She may have viral infection and we will need to monitor her. 3. Anemia. Her anemia is stable at present and does not need any intervention. Thank you for involving me in the care of Ms. Posadas. I will follow her along with you.
--- NOTE | 2016-10-15 13:33 | IPNPDOC ---
Text Note Date of Service The patient was seen on 10/15/16. NOTE Subjective: Patient denies any complaints. Has occasional palpitations. No chest pain or shortness of breath. Objective: Vitals: (see below) General: No acute distress, laying comfortably in bed. HEENT: Moist mucous membranes. Neck: No JVD or lymphadenopathy Cardiac: RRR, No murmurs Pulm: Clear to auscultation b/l. No wheezing, rhonchi Abd: NT/ND + BS Ext: No edema or cyanosis Neuro: Strength 5/5 BUE and BLE. CN 2-12 intact. AAO 3, following all commands Labs (see below) Images: MRI Brain 10/14/16 Impression: Normal MRI of the Brain CXR 10/14/16 Impression: 1. Hypoinflated chest with crowded markings in the lung bases without definite consolidation, effusion, pleural thickening or mass. The portable chest magnifies heart size and aortic tortuosity but no acute finding. CT Chest 10/14/16 Impression: 1. No CT evidence of infiltrate, effusion, atelectasis or mass. No pulmonary nodule. Nothing acute. 2. Small hiatal hernia. 3. Cardiomegaly with left atrial and ventricular enlargement. No pericardial effusion. 4. Advanced atrophy of the kidneys with cortical thinning and sinus lipomatosis. No hydronephrosis or solid mass. A few small cysts on the right kidney. Assessment/Plan 1. Altered mental status- may be related to transient episode of hypotension. ? Recent viral upper respiratory tract infection. Respiratory panel pending. Chest x-ray/CT chest negative for pneumonia. Elevated ammonia level however CT abdomen and pelvis on 09/2016 with normal liver size. LFTs within normal limits. Electrolytes within normal limits. MRI of the brain negative. 2. Palpitations with SVT- patient is on atenolol. Goal magnesium > 2, potassium > 4. Echocardiogram pending 3. End-stage renal disease on hemodialysis; appreciate Dr. Benitez's input 4. Diabetes mellitus- sliding scale insulin/Januvia 5. Hypertension- controlled 6. Hyperlipidemia- on statin DVT prophy: Heparin SQ VS,Fishbone, I+O VS, Fishbone, I+O Laboratory Tests 10/14/16 15:13 Red Blood Count 3.76 L, Mean Corpuscular Volume 98.6 H, Mean Corpuscular Hemoglobin 31.7, Mean Corpuscular Hemoglobin Concent 32.1, Red Cell Distribution Width 17.3 H, Neutrophils (%) (Auto) 66.0, Lymphocytes (%) (Auto) 18.9 L, Monocytes (%) (Auto) 6.5 H, Eosinophils (%) (Auto) 5.2 H, Basophils (%) (Auto) 0.7, Neutrophils # (Auto) 6.0, Lymphocytes # (Auto) 2.0, Monocytes # ( Auto) 0.6, Eosinophils # (Auto) 0.5, Basophils # (Auto) 0.1 10/15/16 05:38 Red Blood Count 3.44 L, Mean Corpuscular Volume 100.0 H, Mean Corpuscular Hemoglobin 31.1, Mean Corpuscular Hemoglobin Concent 31.1 L, Red Cell Distribution Width 17.3 H, Neutrophils (%) (Auto) 53.2, Lymphocytes (%) (Auto) 26.6, Monocytes (%) (Auto) 8.7 H, Eosinophils (%) (Auto) 5.9 H, Basophils (%) ( Auto) 0.6, Neutrophils # (Auto) 4.7, Lymphocytes # (Auto) 2.8, Monocytes # (Auto ) 0.8, Eosinophils # (Auto) 0.5, Basophils # (Auto) 0.0, Calcium Level 8.3 L, Total Creatine Kinase 66 Vital Signs Date Time Temp Pulse Resp B/P Pulse Ox O2 Delivery O2 Flow Rate FiO2 10/15/16 12:00 97.8 66 19 158/86 99 Room Air I&O- Last 24 Hours up to 6 AM 10/15/16 06:00 Intake Total 820 ml Output Total 30 ml Balance 790 ml LILI GILLESPIE MD Oct 15, 2016 13:33
--- NOTE | 2016-10-15 14:02 | ECHO ---
DATE OF PROCEDURE: 10/15/2016 REFERRING PHYSICIAN: Dr. Eller and Dr. Augustine. INDICATION: Altered mental status in 51-year-old female with end-stage renal disease on dialysis with diabetes and hypertension. HEIGHT: 66 inches. WEIGHT: 206 pounds. DIMENSIONS: IVS: 1.0 LV: 5.0 LVPW: 1.0 LA: 4.2 Aorta: 3.2 Ascending aorta: 3.2 RV: 3.1 LV Systolic: 3.4 FINDINGS: The study is of good technical quality. Left ventricle is normal size and systolic function with estimated ejection fraction (EF) around 65%. Right ventricle does not appear enlarged. Left atrium is mildly enlarged, right atrium appears normal. Aortic mitral tricuspid and pulmonic valves were all well seen and appear grossly normal. No pericardial effusion is noted. Inferior vena cava is not dilated. Aortic root appears normal. Aortic arch also appears normal. Abdominal aorta was not well visualized. Doppler interrogation reveals no aortic stenosis or insufficiency. There is trace mitral insufficiency and trace tricuspid insufficiency. Calculated pulmonary artery pressure is within normal limits. Pulmonic valve is functionally competent. There is normal pattern on mitral inflow E velocity is 98 cm/sec. Tissue Doppler velocities of mitral annulus are reduced though with E prime septal measuring 7.0 cm/sec and lateral 6.8 cm/sec. CONCLUSIONS: 1. Study is of acceptable technical quality. 2. Normal LV size with normal LV systolic function and probably grade 2 diastolic dysfunction. 3. No hemodynamically significant valvular disease. 4. Normal central venous pressure and pulmonary artery pressure. COMMENTS: Subacute bacterial endocarditis (SBE) prophylaxis is not recommended. Study it is not supportive of potential endocarditis if it was felt to be a potential reason for altered mental status.
[2016-10-15] MEDS: HEPARIN SOD (PORCINE) 5000 UNITS/ML VIAL SQ SCH ×2 (14:39→21:10)
[2016-10-15] MEDS ORDERED: IBUPROFEN 400 MG TAB PO ONE (18:30)
--- NOTE | 2016-10-15 20:36 | ECGEPIP ---
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
--- NOTE | 2016-10-15 20:56 | ECGEPIP ---
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
--- NOTE | 2016-10-15 20:58 | IPN ---
DATE: 10/15/2016 SUBJECTIVE: Ms. Oconnor is seen this morning on her bedside. She is feeling better today and seems to be at about her baseline mentation. She is able to answer all questions appropriately. She denies any headache, nausea, vomiting, dyspnea or chest pain. PHYSICAL EXAMINATION: VITAL SIGNS: Temperature 97.8 degrees Fahrenheit, heart rate 66 per minute and respiratory rate 18 per minute. Blood pressure 158/86 mmHg and oxygen saturation 99% on room air. HEENT: Head is atraumatic. Ears, nose and throat are unremarkable. Neck is supple and without jugular venous distention (JVD) or thyroid enlargement. Pupils are equal and reactive to light and sclerae are anicteric. HEART/LUNGS: Sounds are regular and lungs clear to auscultation. ABDOMEN: Soft and nontender. Bowel sounds are normal and there is no palpable organomegaly. EXTREMITIES: Have no cyanosis or clubbing. SKIN: Has no rash or ulcers. NEUROLOGIC: She is awake, alert and oriented times three. LABORATORY DATA: Today's labs show WBC count 8.8, hemoglobin 10.7 and hematocrit 34.4. Platelets 174. Sodium 141 and potassium 4.7. BUN 37 and creatinine 9.33. PROBLEMS: 1. End-stage renal disease. The patient is on maintenance hemodialysis three times a week. She completed her dialysis treatment yesterday. At present her volume status is well-compensated and electrolytes are within normal range. Her dialysis will need to be scheduled for SundayOctober 17. There is no indication for urgent dialysis today. 2. Altered mentation. Mentation seems to be improved back to baseline. All her workup including CT scan of head, MRI and labs have been appropriate. 3. Hypertension. Blood pressure is reasonably well-controlled on current antihypertensives. I would suggest to continue with same medications.
[2016-10-15] MEDS: ATENOLOL 50 MG TAB PO SCH (21:09)
[2016-10-15] MEDS: SIMVASTATIN 40 MG TAB PO SCH (21:09)
[2016-10-15] MEDS: SITagliptin 50 MG TAB (JANUVIA) PO SCH (21:09)
[2016-10-15] MEDS: LOSARTAN 50 MG TAB PO SCH (21:09)
[2016-10-15] MEDS: amLODIPine 10 MG TAB PO SCH (21:09)
[2016-10-16 05:09] VITALS: BP 130/67
[2016-10-16 05:40] LABS: BASO # 0.1 K/mm3 (0.0-0.2); BASO % 0.8 % (0.0-1.0); EOS # 0.5 K/mm3 (0.0-0.50); LARGE UNSTAINED CELL # 0.3 K/mm3 (0.0-0.4); LARGE UNSTAINED CELL % 3.1 % (0.0-4.0); LYMPH # 3.1 K/mm3 (1.5-4.5); LYMPH % 32.5 % (24.0-44.0); MEAN CORPUSCULAR HEMOGLOBIN 30.9 pg (27.0-33.0); MEAN CORPUSCULAR HGB CONC 30.9 g/dl (32.0-36.5); MEAN CORPUSCULAR VOLUME 100.2 fl (80.0-96.0); MONO # 0.7 K/mm3 (0.0-0.8); MONO % 7.8 % (0.0-5.0); NEUTROPHILS # 4.3 K/mm3 (1.8-7.7); NEUTROPHILS % 49.8 % (36.0-66.0); PLATELET COUNT, AUTOMATED 190 k/mm3 (150-450); RED CELL DISTRIBUTION WIDTH 17.3 % (11.5-14.5); WHITE BLOOD COUNT 8.6 K/mm3 (4.0-10.0)
[2016-10-16 05:53] LABS: CALCIUM LEVEL 7.9 MG/DL (8.5-10.1); CREATININE FOR GFR 12.3 MG/DL (0.55-1.02); GLOMERULAR FILTRATION RATE 3.4 (>51); POTASSIUM SERUM 4.4 MEQ/L (3.5-5.1)
[2016-10-16] MEDS: HEPARIN SOD (PORCINE) 5000 UNITS/ML VIAL SQ SCH (06:00)
[2016-10-16] MEDS: HumaLOG INSULIN (NovoLOG) PER UNIT SC SCH ×2 (07:30→12:00)
[2016-10-16 08:00] VITALS: BP 117/74
[2016-10-16] MEDS: SUCRALFATE 1 GM TAB PO SCH ×2 (08:22→12:20)
[2016-10-16] MEDS: CALCIUM ACETATE 667 MG GELCAP PO SCH ×2 (08:23→12:33)
[2016-10-16] MEDS: ALLOPURINOL 100 MG TAB PO SCH (10:03)
[2016-10-16] MEDS: VITAMIN D 1,000 INTERNATIONAL UNITS TABLET PO SCH (10:03)
[2016-10-16] MEDS: PANTOPRAZOLE 40MG TAB (PROTONIX) PO SCH (10:03)
[2016-10-16] MEDS: DOCUSATE SODIUM 100 MG CAP PO SCH (10:03)
[2016-10-16] MEDS: ACETAMINOPHEN TAB 650MG DOSE (2X325MG) PO PRN (10:16)
[2016-10-16] MEDS ORDERED: SLF 3 ML SYR IV PRN (11:30)
[2016-10-16] MEDS ORDERED: SLF 3 ML SYR IV SCH (14:00)
--- NOTE | 2016-10-16 16:19 | DS.PDOC ---
Discharge Summary General Date of Admission Oct 14, 2016 at 17:33 Date of Discharge 10/16/16 Attending Physician: LILI GILLESPIE MD Specialist/Consultants Involve: TAVON BURROUGHS MD @ Discharge Summary PROCEDURES PERFORMED DURING STAY: HD ADMITTING/DISCHARGE DIAGNOSES: 1. Altered mental status; transient; resolved 2. Palpitations with SVT 3. End-stage renal disease on hemodialysis 4. Diabetes mellitus 5. Hypertension 6. Hyperlipidemia COMPLICATIONS/CHIEF COMPLAINT: AMS. HISTORY OF PRESENT ILLNESS/HOSPITAL COURSE: . This is a 51-year-old female past history of diabetes, hypertension, end-stage renal disease on hemodialysis with presents with altered mental status after dialysis. Patient states that she occasionally has transient episodes of hypotension. States she does not recall why she was in the [facility] however was told that it's because she had changes in mental status. Patient did not have any focal deficits. Patient also had an MRI of the brain with no changes. Electrolytes are within normal limits. The cause of her altered mental status is not quite clear, however she's back to her baseline. The patient did have hemodialysis while she was inpatient, which she tolerated well. Patient is hemodynamics stable and ready to be discharged home. DISCHARGE MEDICATIONS: Please see below. ALLERGIES: Please see below. PHYSICAL EXAMINATION ON DISCHARGE: Vitals: (see below) General: No acute distress, laying comfortably in bed. HEENT: Moist mucous membranes. Neck: No JVD or lymphadenopathy Cardiac: RRR, No murmurs Pulm: Clear to auscultation b/l. No wheezing, rhonchi Abd: NT/ND + BS Ext: No edema or cyanosis Neuro: Strength 5/5 BUE and BLE. CN 2-12 intact. AAO 3, following all commands LABORATORY DATA: Please see below. IMAGING: MRI Brain 10/14/16 Impression: Normal MRI of the Brain CXR 10/14/16 Impression: 1. Hypoinflated chest with crowded markings in the lung bases without definite consolidation, effusion, pleural thickening or mass. The portable chest magnifies heart size and aortic tortuosity but no acute finding. CT Chest 10/14/16 Impression: 1. No CT evidence of infiltrate, effusion, atelectasis or mass. No pulmonary nodule. Nothing acute. 2. Small hiatal hernia. 3. Cardiomegaly with left atrial and ventricular enlargement. No pericardial effusion. 4. Advanced atrophy of the kidneys with cortical thinning and sinus lipomatosis. No hydronephrosis or solid mass. A few small cysts on the right kidney. PROGNOSIS: Fair ACTIVITY: As tolerated. DIET: Renal diet DISCHARGE PLAN/DISPOSITION: 01 Home, Self-Care. DISCHARGE INSTRUCTIONS: 1. Patient is to follow-up with PCP, cardiology, and nephrology in 1-2 weeks . DISCHARGE CONDITION: Stable. TIME SPENT ON DISCHARGE: Greater than 30 minutes. Vital Signs/I&Os Vital Signs Date Time Temp Pulse Resp B/P Pulse Ox O2 Delivery O2 Flow Rate FiO2 10/16/16 08:00 98.3 67 18 117/74 98 Room Air I&O- Last 24 Hours up to 6 AM 10/16/16 05:59 Intake Total 1420 ml Output Total 50 ml Balance 1370 ml Laboratory Data Labs 24H Laboratory Tests 2 10/15/16 16:43: Bedside Glucose (Misc Panel) 122H 10/15/16 21:07: Bedside Glucose (Misc Panel) 118H 10/16/16 05:07: Anion Gap 12, White Blood Count 8.6, Red Blood Count 3.32L, Hemoglobin 10.3L, Hematocrit 33.2L, Mean Corpuscular Volume 100.2H, Mean Corpuscular Hemoglobin 30.9, Mean Corpuscular Hemoglobin Concent 30.9L, Red Cell Distribution Width 17.3H, Platelet Count 190, Neutrophils (%) (Auto) 49.8, Lymphocytes (%) (Auto) 32.5, Monocytes (%) (Auto) 7.8H, Eosinophils (%) (Auto) 6.0H, Basophils (%) ( Auto) 0.8, Neutrophils # (Auto) 4.3, Lymphocytes # (Auto) 3.1, Monocytes # (Auto ) 0.7, Eosinophils # (Auto) 0.5, Basophils # (Auto) 0.1, Blood Urea Nitrogen 57# H, Creatinine 12.30H, Sodium Level 140, Potassium Level 4.4, Chloride Level 99, Carbon Dioxide Level 29, Calcium Level 7.9L, Glomerular Filtration Rate 3.4L, Large Unclassified Cells # 0.3, Large Unclassified Cells % 3.1 CBC/BMP Laboratory Tests 10/16/16 05:07 Calcium Level 7.9 L, Red Blood Count 3.32 L, Mean Corpuscular Volume 100.2 H, Mean Corpuscular Hemoglobin 30.9, Mean Corpuscular Hemoglobin Concent 30.9 L, Red Cell Distribution Width 17.3 H, Neutrophils (%) (Auto) 49.8, Lymphocytes (% ) (Auto) 32.5, Monocytes (%) (Auto) 7.8 H, Eosinophils (%) (Auto) 6.0 H, Basophils (%) (Auto) 0.8, Neutrophils # (Auto) 4.3, Lymphocytes # (Auto) 3.1, Monocytes # (Auto) 0.7, Eosinophils # (Auto) 0.5, Basophils # (Auto) 0.1 FSBS Laboratory Tests Test 10/15/16 16:43 10/15/16 21:07 Range/Units Bedside Glucose (Misc Panel) 122 118 70-105 MG/DL Microbiology Microbiology 10/14/16 Blood Culture - Preliminary, Resulted No growth after 24 hours . All specim... 10/14/16 Urine Culture, Received Pending Discharge Medications Scheduled Allopurinol (Allopurinol) 100 Mg Tab 100 MG PO DAILY (Reported) Amlodipine Besylate (Amlodipine Besylate) 10 Mg Tab 10 MG PO QHS (Reported) Atenolol (Atenolol) 100 Mg Tab 100 MG PO QHS (Reported) Benzoyl Peroxide (Advanced Acne Wash) 4.4 % Liq 1 DOSE EXT DAILY (Reported) applies to face Calcium Acetate (Calcium Acetate) 667 Mg Cap 1,334 MG PO WM (Reported) takes additional 2 capsules with snacks Cholecalciferol (D 1000) 1,000 Unit Tab 1,000 UNIT PO DAILY (Reported) Cinacalcet Hydrochloride (Sensipar) 30 Mg Tab 30 MG PO 1XWK (Reported) unknown which day of the week pt takes, can't give me last dose Docusate Sodium (Stool Softener) 100 Mg Cap 200 MG PO BID (Reported) Losartan Potassium (Cozaar) 50 Mg Tab 50 MG PO QHS (Reported) Pantoprazole Sodium (Pantoprazole Sodium) 40 Mg Tab 40 MG PO DAILY (Reported) Simvastatin - High Dose (Simvastatin) 40 Mg Tab 40 MG PO QHS (Reported) Sitagliptin Phosphate (Januvia) 25 Mg Tab 25 MG PO QHS (Reported) Tretinoin (Tretinoin) 0.1 % Cre 1 DOSE TOP BID (Reported) applies to face Scheduled PRN (Voltaren) 1 % Gel 1 % TD DAILY PRN PRN knee pain (Reported) Betamethasone Dipropionate (Betamethasone Dipropionat) 15 Gm Cream 1 DOSE EXT DAILY PRN PRN ITCHING (Reported) applies to ears Metoclopramide Hcl (Reglan) 5 Mg Tab 5 MG PO ACHS PRN PRN NAUSEA OR VOMITING ( Reported) Allergies Coded Allergies: Hydrocodone (Verified Adverse Reaction, Mild, N/V, 08/14/16) Morphine (Verified Adverse Reaction, Mild, N/V, 08/14/16) LILI GILLESPIE MD Oct 16, 2016 16:19
--- NOTE | 2016-10-16 21:29 | IPN ---
DATE: 10/16/2016 SUBJECTIVE: The patient was seen and examined at the bedside today in the morning. She denies any active complaints. She is hemodynamically stable. She is awake, alert and oriented at this time. REVIEW OF SYSTEMS: The patient denies any fever, chills, rigors, headache, nausea, vomiting, chest pain, shortness of breath, pain in abdomen, constipation or diarrhea. The rest of the review of systems is negative. OBJECTIVE: VITAL SIGNS: Temperature is 98.3 degrees Fahrenheit, blood pressure is 117/74, pulse is 67, respiratory rate of 18, saturating 98% on room air. INTAKE/OUTPUT: Urine output recorded as 50 mL yesterday. No urine output is recorded today. Weight on the bed scale is 95.2 kg. PHYSICAL EXAMINATION: GENERAL: The patient is awake, alert, oriented times three, laying in bed, in no apparent distress. HEAD AND NECK EXAM: Extraocular muscles intact. Pupils equally round and reactive to light. Mucous membranes are moist. Neck is supple. There is no jugular venous distention (JVD). CARDIOVASCULAR: S1, S2, regular rate. No murmur, rub or gallop. RESPIRATORY: Chest is clear to auscultation bilaterally. Bilateral equal air entry. No rales or rhonchi. ABDOMEN: Abdomen is soft. Positive bowel sounds. Nontender. No ascites. No organomegaly. EXTREMITIES: No clubbing or cyanosis. Pulses are 2+. CENTRAL NERVOUS SYSTEM: No focal neurological deficit. Power is 5/5 in all extremities. LAB REVIEW: CBC showed a WBC of 8.6, hemoglobin 10.3, platelets are 190. BMP showed sodium 140, potassium 4.4, chloride 99, bicarbonate 29, BUN 57, creatinine is 12.3. IMAGING: MRI of the brain showed no acute pathology. CT of the chest done yesterday showed no evidence of infiltrate, effusion, atelectasis or mass. CURRENT MEDICATIONS: The patient's medications are all reviewed by me. There is no change in the medication today as compared with yesterday. ASSESSMENT: A 51-year-old female with a history of end-stage renal disease, on hemodialysis, admitted at this time because of altered mental status. PLAN: 1. End-stage renal disease. The patient's regular hemodialysis days are Sunday, , Sunday. No urgent need of hemodialysis today. Next hemodialysis session will be tomorrow. 2. Altered mental status. Her mentation is improved. Her workup, including CT scan of the head, MRI of the brain and echocardiogram have been negative so far. 3. Hypertension. Blood pressure is acceptable at this time. Continue antihypertensive regimen at this time. 4. Discharge planning: It is okay to discharge the patient from a nephrology standpoint. She can be dialyzed as an outpatient tomorrow morning.
== END 2016-10-16 13:02 | disposition home or self-care (01) ==
LOC: M ED 17:32 → M ED INP 17:33 → M PCU 22:44
PROVIDERS: ADMIT General Practice; ATTEND Internal Medicine
DX: R41.82 Altered mental status, unspecified (principal); R00.2 Palpitations; I47.2 Ventricular tachycardia; N18.6 End stage renal disease; Z99.2 Dependence on renal dialysis; E11.22 Type 2 diabetes mellitus with diabetic chronic kidney disease; I12.0 Hypertensive chronic kidney disease with stage 5 chronic kidney disease or end stage renal disease; E78.5 Hyperlipidemia, unspecified; K72.90 Hepatic failure, unspecified without coma; J45.909 Unspecified asthma, uncomplicated; M10.9 Gout, unspecified; L70.9 Acne, unspecified; D64.9 Anemia, unspecified; Z79.899 Other long term (current) drug therapy; Z79.2 Long term (current) use of antibiotics; Z88.5 Allergy status to narcotic agent
CPT/HCPCS: 36415; 70450; 70551; 71010; 71250; 80048; 80076; 81001; 82140; 82550; 82553; 83735; 84443; 85025; 87040; 87088; 87186; 93005; 93041; 94760; 96374; 99285; J2405

== ENCOUNTER 2016-10-21 19:07 | Emergency (ER) | payer OTHER, MEDICARE, MEDICAID ==
[~2016-10-21] VITALS: Ht 167.6 cm; Wt 93.4 kg
[~2016-10-21 19:07] MED LIST changes: +BETA1CRE EXT; +D 101TAB PO; +JANU25TA PO; +REGL5TAB2 PO; +VOLT1GEL24 TD; +[UNRECOGNIZED DRUG - CODE] TOP
[2016-10-21 19:11] VITALS: BP 108/63
[2016-10-21] MEDS ORDERED: NAPR500T PO (19:59)
== END 2016-10-21 20:25 | disposition home or self-care (01) ==
LOC: M ED 20:00
DX: M79.89 Other specified soft tissue disorders (principal); S60.221A Contusion of right hand, initial encounter; X58.XXXA Exposure to other specified factors, initial encounter; Y92.89 Other specified places as the place of occurrence of the external cause; Y93.89 Activity, other specified; Y99.8 Other external cause status; K75.9 Inflammatory liver disease, unspecified; Z79.899 Other long term (current) drug therapy

== ENCOUNTER → 2017-01-01 | Outpatient (CLI) | payer OTHER, MEDICARE, MEDICAID ==
[~2017-01-01] MED LIST changes: +NAPR500T PO
--- NOTE | 2017-01-01 12:15 | REP ---
Clinical: Acute on chronic pain. Technique: Internal rotation, external rotation, and Y view of the left shoulder. Findings: Moderate degenerative changes include cortical irregularity at the acromioclavicular joint with subtle inferior spurring at the distal acromion as well as subtle cortical irregularity involving the humeral head and age-related blunting to the glenoid rim. No acute fracture dislocation. Subacromial space is normal. No periarticular calcifications identified. Impression: Moderate arthritic degenerative changes. Signed by Lg Sanford MD 01/01/2017 11:14 A
[2017-01-01 14:54] LABS: BASO # 0.1 K/mm3 (0.0-0.2); EOS # 0.5 K/mm3 (0.0-0.50); EOS % 5.4 % (0.0-3.0); LARGE UNSTAINED CELL # 0.2 K/mm3 (0.0-0.4); LARGE UNSTAINED CELL % 2.1 % (0.0-4.0); LYMPH # 2.7 K/mm3 (1.5-4.5); LYMPH % 29.4 % (24.0-44.0); MEAN CORPUSCULAR HEMOGLOBIN 31.5 pg (27.0-33.0); MEAN CORPUSCULAR HGB CONC 32.5 g/dl (32.0-36.5); MEAN CORPUSCULAR VOLUME 96.8 fl (80.0-96.0); MONO # 0.5 K/mm3 (0.0-0.8); NEUTROPHILS # 4.8 K/mm3 (1.8-7.7); NEUTROPHILS % 56.1 % (36.0-66.0); PLATELET COUNT, AUTOMATED 182 k/mm3 (150-450); RED CELL DISTRIBUTION WIDTH 15.8 % (11.5-14.5); WHITE BLOOD COUNT 8.6 K/mm3 (4.0-10.0)
[2017-01-01 15:10] LABS: ALBUMIN 3.8 GM/DL (3.2-5.2); ALBUMIN/GLOBULIN RATIO 0.78 (1.00-1.93); BILIRUBIN,TOTAL 0.4 MG/DL (0.2-1.0); CALCIUM LEVEL 9.4 MG/DL (8.5-10.1); CREATININE FOR GFR 14.9 MG/DL (0.55-1.02); FREE T4 0.8 NG/DL (0.76-1.46); GLOMERULAR FILTRATION RATE 2.8 (>51); POTASSIUM SERUM 4.7 MEQ/L (3.5-5.1); TOTAL PROTEIN 8.7 GM/DL (6.4-8.2); URIC ACID 6.1 MG/DL (2.6-6.0)
== END ==
LOC: M SMT 10:12
PROVIDERS: ATTEND Family Medicine
DX: M19.012 Primary osteoarthritis, left shoulder (principal); I12.0 Hypertensive chronic kidney disease with stage 5 chronic kidney disease or end stage renal disease; E78.2 Mixed hyperlipidemia; E11.40 Type 2 diabetes mellitus with diabetic neuropathy, unspecified; E55.9 Vitamin D deficiency, unspecified; M10.9 Gout, unspecified; Z23 Encounter for immunization

== ENCOUNTER → 2017-01-01 | Outpatient (CLI) | payer OTHER, MEDICARE, MEDICAID | LOC: M SMT 10:20 | DX: Z01.812 Encounter for preprocedural laboratory examination (principal) ==

== ENCOUNTER → 2017-01-31 | Outpatient (REF) | payer OTHER, MEDICARE, MEDICAID ==
[~2017-01-31] MED LIST changes: -CARA1TAB2 PO; +CARA1TAB6 PO; +TRET0.1C19 TOP; +VITA-110 PO; -VITA400C29 PO; +VOLT1GEL15 TD; -VOLT1GEL24 TD; -[UNRECOGNIZED DRUG - CODE] TOP
== END ==
LOC: M LAB REF 17:10
PROVIDERS: ATTEND Family Medicine
DX: Z01.419 Encounter for gynecological examination (general) (routine) without abnormal findings (principal); Z11.51 Encounter for screening for human papillomavirus (HPV)

== ENCOUNTER → 2017-05-30 | Outpatient (CLI) | payer OTHER, MEDICARE ==
[2017-05-30 11:19] LABS: BASO # 0.1 10^3/uL (0.0-0.2); EOS # 0.7 10^3/uL (0.0-0.50); EOS % 7.4 % (0.0-3.0); IMMATURE GRANULOCYTE % 0.4 % (0-0); LYMPH # 0.5 10^3/uL (1.5-4.5); LYMPH % 5.8 % (24.0-44.0); MEAN CORPUSCULAR HEMOGLOBIN 31.2 pg (27.0-33.0); MEAN CORPUSCULAR HGB CONC 31.2 g/dl (32.0-36.5); MONO # 0.6 10^3/uL (0.0-0.8); NEUTROPHILS # 7.3 10^3/uL (1.8-7.7); NEUTROPHILS % 79.4 % (36.0-66.0); PLATELET COUNT, AUTOMATED 218 10^3/uL (150-450); RED CELL DISTRIBUTION WIDTH 17.1 % (11.5-14.5); WHITE BLOOD COUNT 9.2 10^3/uL (4.0-10.0)
[2017-05-30 11:48] LABS: ALBUMIN 3.8 GM/DL (3.2-5.2); CALCIUM LEVEL 9.6 MG/DL (8.5-10.1); CREATININE FOR GFR 2.38 MG/DL (0.55-1.02); GLOMERULAR FILTRATION RATE 22.8 (>51); MAGNESIUM LEVEL 1.9 MG/DL (1.8-2.4); PHOSPHORUS LEVEL 2.2 MG/DL (2.5-4.9); POTASSIUM SERUM 4.7 MEQ/L (3.5-5.1)
== END ==
LOC: M LAB 10:26
DX: N18.5 Chronic kidney disease, stage 5 (principal); D84.9 Immunodeficiency, unspecified; Z79.899 Other long term (current) drug therapy; Z94.0 Kidney transplant status

== ENCOUNTER → 2017-07-18 | Outpatient (CLI) | payer MEDICARE ==
[2017-07-18 08:15] LABS: BASO % 0.8 % (0.0-1.0); EOS # 0.1 10^3/uL (0.0-0.50); EOS % 2.1 % (0.0-3.0); HEMATOCRIT 32.2 % (36.0-47.0); HEMOGLOBIN 9.9 g/dl (12.0-16.0); IMMATURE GRANULOCYTE # 0.1 10^3/uL (0-0); LYMPH % 19.6 % (24.0-44.0); MEAN CORPUSCULAR HGB CONC 30.7 g/dl (32.0-36.5); MEAN CORPUSCULAR VOLUME 97.6 fl (80.0-96.0); MONO # 0.3 10^3/uL (0.0-0.8); MONO % 6.5 % (0.0-5.0); NEUTROPHILS # 3.7 10^3/uL (1.8-7.7); PLATELET COUNT, AUTOMATED 283 10^3/uL (150-450); RED CELL DISTRIBUTION WIDTH 14.4 % (11.5-14.5); WHITE BLOOD COUNT 5.2 10^3/uL (4.0-10.0)
[2017-07-18 08:53] LABS: ALBUMIN 4.1 GM/DL (3.2-5.2); AMYLASE 64 U/L (25-115); ANION GAP 9 MEQ/L (8-16); BLOOD UREA NITROGEN 17 MG/DL (7-18); CALCIUM LEVEL 9.6 MG/DL (8.5-10.1); CARBON DIOXIDE LEVEL 28 MEQ/L (21-32); CHLORIDE LEVEL 106 MEQ/L (98-107); CREATININE FOR GFR 1.51 MG/DL (0.55-1.02); GLOMERULAR FILTRATION RATE 38.5 (>51); GLUCOSE, FASTING 163 MG/DL (70-105); LIPASE 382 U/L (73-393); MAGNESIUM LEVEL 1.9 MG/DL (1.8-2.4); PHOSPHORUS LEVEL 1.8 MG/DL (2.5-4.9); POTASSIUM SERUM 3.6 MEQ/L (3.5-5.1); SODIUM LEVEL 143 MEQ/L (136-145)
[2017-07-18 09:02] LABS: MALB URINE SIEMENS 29.8 MG/L; MAU/CREAT RATIO 20.8 MCG/MG (0.0-30.0)
== END ==
LOC: M LAB 07:06
DX: Z94.0 Kidney transplant status (principal); N18.5 Chronic kidney disease, stage 5; D84.9 Immunodeficiency, unspecified
CPT/HCPCS: 82150

== ENCOUNTER → 2017-11-05 | Outpatient (CLI) | payer MEDICARE ==
[2017-11-05 07:23] LABS: CHOLESTEROL LEVEL 131 MG/DL (<200); CHOLESTEROL RISK RATIO 2.729 (<5); HDL CHOLESTEROL 48 MG/DL (>40); LDL CHOLESTEROL 41.8 MG/DL (<100); NON-HDL-C 83 MG/DL; TRIGLYCERIDES LEVEL 206 MG/DL (<150)
== END ==
LOC: M LAB 06:30
DX: E78.2 Mixed hyperlipidemia (principal)
CPT/HCPCS: 80061

== ENCOUNTER → 2017-11-29 | Outpatient (CLI) | payer MEDICARE | LOC: M RAD 08:21 | DX: Z12.31 Encounter for screening mammogram for malignant neoplasm of breast (principal) | CPT/HCPCS: 77067 ==

== ENCOUNTER → 2017-12-31 | Outpatient (CLI) | payer MEDICARE ==
[2017-12-31 07:10] LABS: ESTIMATED AVERAGE GLUCOSE 137 MG/DL (60-110); HEMOGLOBIN A1c 6.4 %
== END ==
LOC: M LAB 06:22
DX: E11.40 Type 2 diabetes mellitus with diabetic neuropathy, unspecified (principal)
CPT/HCPCS: 83036

== ENCOUNTER → 2018-01-01 | Outpatient (REF) | payer MEDICARE | LOC: M LAB REF 17:25 | DX: N76.0 Acute vaginitis (principal) | CPT/HCPCS: 87186 ==

== ENCOUNTER → 2018-04-09 | Outpatient (CLI) | payer MEDICARE ==
[2018-04-09 12:50] LABS: ALBUMIN 3.5 GM/DL (3.2-5.2); ALBUMIN/GLOBULIN RATIO 0.97 (1.00-1.93); ALKALINE PHOSPHATASE 55 U/L (45-117); ALT/SGPT 21 U/L (12-78); ANION GAP 8 MEQ/L (8-16); AST/SGOT 10 U/L (7-37); BILIRUBIN,TOTAL 0.3 MG/DL (0.2-1.0); BLOOD UREA NITROGEN 16 MG/DL (7-18); CALCIUM LEVEL 8.9 MG/DL (8.5-10.1); CARBON DIOXIDE LEVEL 28 MEQ/L (21-32); CHLORIDE LEVEL 106 MEQ/L (98-107); CREATININE FOR GFR 1.14 MG/DL (0.55-1.30); GLOMERULAR FILTRATION RATE 53.1 (>51); GLUCOSE, FASTING 217 MG/DL (70-100); SODIUM LEVEL 142 MEQ/L (136-145); TOTAL PROTEIN 7.1 GM/DL (6.4-8.2)
== END ==
LOC: M LAB 10:30
DX: I12.9 Hypertensive chronic kidney disease with stage 1 through stage 4 chronic kidney disease, or unspecified chronic kidney disease (principal); N18.9 Chronic kidney disease, unspecified
CPT/HCPCS: 80053

== ENCOUNTER → 2018-06-10 | Outpatient (CLI) | payer MEDICARE ==
[2018-06-10 09:33] LABS: APPEARANCE, URINE CLEAR (CLEAR); BACTERIA, URINE AUTO 1+ (NEGATIVE); BILIRUBIN, URINE AUTO NEGATIVE (NEGATIVE); BLOOD, URINE BLOOD 1+ (NEGATIVE); COLOR, URINE YELLOW (YELLOW); GLUCOSE, URINE (UA) AUTO NEGATIVE (NEGATIVE); KETONE, URINE AUTO NEGATIVE (NEGATIVE); LEUKOCYTE ESTERASE, URINE AUTO NEGATIVE (NEGATIVE); MUCUS, URINE SMALL (NEGATIVE); NITRITE, URINE AUTO NEGATIVE (NEGATIVE); PROTEIN, URINE AUTO 2+ mg/dL (NEGATIVE); RBC, URINE AUTO 5 /HPF (0-3); SPECIFIC GRAVITY URINE AUTO 1.018 (1.002-1.035); SQUAMOUS EPITHELIAL CELL UR AU 1 /HPF (0-6); UROBILINOGEN, URINE AUTO 0.2 mg/dL (0.0-2.0); WBC, URINE AUTO 1 /HPF (0-3)
[2018-06-10 09:53] LABS: ALBUMIN/GLOBULIN RATIO 1.18 (1.00-1.93); ALKALINE PHOSPHATASE 50 U/L (45-117); ALT/SGPT 19 U/L (12-78); ANION GAP 7 MEQ/L (8-16); AST/SGOT 7 U/L (7-37); BILIRUBIN,TOTAL 0.3 MG/DL (0.2-1.0); BLOOD UREA NITROGEN 18 MG/DL (7-18); CALCIUM LEVEL 9.8 MG/DL (8.5-10.1); CARBON DIOXIDE LEVEL 29 MEQ/L (21-32); CHLORIDE LEVEL 106 MEQ/L (98-107); CREATININE FOR GFR 1.05 MG/DL (0.55-1.30); GLOMERULAR FILTRATION RATE 58.4 (>51); GLUCOSE, FASTING 123 MG/DL (70-100); POTASSIUM SERUM 3.7 MEQ/L (3.5-5.1); SODIUM LEVEL 142 MEQ/L (136-145); TOTAL PROTEIN 7.4 GM/DL (6.4-8.2)
[2018-06-12 14:16] LABS: FK 506 (TACROLIMUS) LABCORP 8.5 ng/mL (2.0-20.0)
== END ==
LOC: M LAB 08:07
DX: E11.22 Type 2 diabetes mellitus with diabetic chronic kidney disease (principal); Z94.0 Kidney transplant status; R03.0 Elevated blood-pressure reading, without diagnosis of hypertension
CPT/HCPCS: 80053

== ENCOUNTER → 2018-06-10 | Outpatient (REF) | payer MEDICARE | LOC: M LAB REF 17:29 | DX: R30.0 Dysuria (principal) | CPT/HCPCS: 87086 ==

== ENCOUNTER → 2018-08-19 | Outpatient (CLI) | payer MEDICARE ==
[~2018-08-19] MED LIST changes: -AMLO10TA2 PO; +AMLO10TA5 PO; -DOXY-278 PO; +DOXY-350 PO; +NAPR-50 PO; -NAPR500T PO; -PANT40TA2 PO; +PANT40TA3 PO
[2018-08-19 08:30] LABS: BASO % 0.6 % (0.0-1.0); EOS # 0.4 10^3/uL (0.0-0.50); EOS % 6.2 % (0.0-3.0); HEMATOCRIT 38.9 % (36.0-47.0); HEMOGLOBIN 11.9 g/dl (12.0-15.5); LYMPH # 1.7 10^3/uL (1.5-4.5); LYMPH % 25.1 % (24.0-44.0); MEAN CORPUSCULAR HGB CONC 30.6 g/dl (32.0-36.5); MEAN CORPUSCULAR VOLUME 91.5 fl (80.0-96.0); MONO # 0.8 10^3/uL (0.0-0.8); MONO % 11.8 % (0.0-5.0); NEUTROPHILS # 3.8 10^3/uL (1.8-7.7); PLATELET COUNT, AUTOMATED 226 10^3/uL (150-450); RED BLOOD COUNT 4.25 10^6/uL (4.00-5.40); WHITE BLOOD COUNT 6.8 10^3/uL (4.0-10.0)
[2018-08-19 09:12] LABS: MAU/CREAT RATIO 141.1 MCG/MG (0.0-30.0)
[2018-08-19 09:17] LABS: ALBUMIN 3.9 GM/DL (3.2-5.2); ALT/SGPT 18 U/L (12-78); BILIRUBIN,TOTAL 0.4 MG/DL (0.2-1.0); BLOOD UREA NITROGEN 19 MG/DL (7-18); CALCIUM LEVEL 9.6 MG/DL (8.5-10.1); CARBON DIOXIDE LEVEL 30 MEQ/L (21-32); CHLORIDE LEVEL 108 MEQ/L (98-107); CHOLESTEROL LEVEL 134 MG/DL (<200); CREATININE FOR GFR 0.99 MG/DL (0.55-1.30); GLOMERULAR FILTRATION RATE > 60.0 (>51); GLUCOSE, FASTING 97 MG/DL (70-100); HDL CHOLESTEROL 50 MG/DL (>40); LDL CHOLESTEROL 54 MG/DL (<100); NON-HDL-C 84 MG/DL; POTASSIUM SERUM 4.1 MEQ/L (3.5-5.1); SODIUM LEVEL 142 MEQ/L (136-145); TRIGLYCERIDES LEVEL 150 MG/DL (<150)
[2018-08-19 09:41] LABS: HEMOGLOBIN A1c 7.2 %
== END ==
LOC: M LAB 07:44
PROVIDERS: ATTEND Family Medicine
DX: E11.22 Type 2 diabetes mellitus with diabetic chronic kidney disease (principal)

== ENCOUNTER → 2018-10-10 | Outpatient (CLI) | payer MEDICARE ==
[2018-10-10 07:22] LABS: BASO # 0.1 10^3/uL (0.0-0.2); BASO % 0.5 % (0.0-1.0); EOS # 0.5 10^3/uL (0.0-0.50); EOS % 4.9 % (0.0-3.0); HEMATOCRIT 38.9 % (36.0-47.0); HEMOGLOBIN 11.9 g/dl (12.0-15.5); LYMPH # 1.8 10^3/uL (1.5-4.5); LYMPH % 19.5 % (24.0-44.0); MEAN CORPUSCULAR HEMOGLOBIN 28.2 pg (27.0-33.0); MEAN CORPUSCULAR HGB CONC 30.6 g/dl (32.0-36.5); MEAN CORPUSCULAR VOLUME 92.2 fl (80.0-96.0); MONO # 1.1 10^3/uL (0.0-0.8); MONO % 11.2 % (0.0-5.0); NEUTROPHILS % 63.6 % (36.0-66.0); PLATELET COUNT, AUTOMATED 212 10^3/uL (150-450); RED BLOOD COUNT 4.22 10^6/uL (4.00-5.40); WHITE BLOOD COUNT 9.4 10^3/uL (4.0-10.0)
[2018-10-10 07:28] LABS: APPEARANCE, URINE CLEAR (CLEAR); BACTERIA, URINE AUTO NEGATIVE (NEGATIVE); BILIRUBIN, URINE AUTO NEGATIVE (NEGATIVE); BLOOD, URINE BLOOD NEGATIVE (NEGATIVE); COLOR, URINE YELLOW (YELLOW); GLUCOSE, URINE (UA) AUTO NEGATIVE (NEGATIVE); KETONE, URINE AUTO NEGATIVE (NEGATIVE); LEUKOCYTE ESTERASE, URINE AUTO NEGATIVE (NEGATIVE); NITRITE, URINE AUTO NEGATIVE (NEGATIVE); PROTEIN, URINE AUTO 2+ mg/dL (NEGATIVE); RBC, URINE AUTO 5 /HPF (0-3); SPECIFIC GRAVITY URINE AUTO 1.026 (1.002-1.035); SQUAMOUS EPITHELIAL CELL UR AU 1 /HPF (0-6); UROBILINOGEN, URINE AUTO 0.2 mg/dL (0.0-2.0); WBC, URINE AUTO 3 /HPF (0-3)
[2018-10-10 07:51] LABS: ALBUMIN 3.8 GM/DL (3.2-5.2); BLOOD UREA NITROGEN 12 MG/DL (7-18); CALCIUM LEVEL 9.3 MG/DL (8.5-10.1); CARBON DIOXIDE LEVEL 31 MEQ/L (21-32); CHLORIDE LEVEL 109 MEQ/L (98-107); CREATININE FOR GFR 0.95 MG/DL (0.55-1.30); GLOMERULAR FILTRATION RATE > 60.0 (>51); GLUCOSE, FASTING 103 MG/DL (70-100); MAGNESIUM LEVEL 1.8 MG/DL (1.8-2.4); PHOSPHORUS LEVEL 2.9 MG/DL (2.5-4.9); POTASSIUM SERUM 3.6 MEQ/L (3.5-5.1); SODIUM LEVEL 143 MEQ/L (136-145)
[2018-10-10 08:31] LABS: TOTAL PROTEIN,RANDOM URINE 80.3 MG/DL (0.0-12.0)
== END ==
LOC: M LAB 06:56
PROVIDERS: ATTEND Internal Medicine Nephrology
DX: N18.5 Chronic kidney disease, stage 5 (principal); Z94.0 Kidney transplant status; D84.9 Immunodeficiency, unspecified; Z79.899 Other long term (current) drug therapy

== ENCOUNTER → 2018-10-21 | Outpatient (CLI) | payer MEDICARE ==
[~2018-10-21] MED LIST changes: -D 101TAB PO; -NAPR-50 PO; +NAPR-837 PO; +VITA-144 PO
[2018-10-25 00:06] LABS: BK VIRUS BLOOD PCR1 Negative copies/mL (Negative)
[2018-10-25 00:06] LABS: BK VIRUS URINE PCR1 Negative copies/mL (Negative)
== END ==
LOC: M LAB 08:04
PROVIDERS: ATTEND Internal Medicine Nephrology
DX: Z94.0 Kidney transplant status (principal); N18.5 Chronic kidney disease, stage 5; D84.9 Immunodeficiency, unspecified; Z79.899 Other long term (current) drug therapy

== ENCOUNTER → 2018-11-19 | Outpatient (CLI) | payer MEDICARE ==
[~2018-11-19] MED LIST changes: -CINA30TA PO; +CINA30TA4 PO
[2018-11-19 08:23] LABS: BASO % 0.3 % (0.0-1.0); EOS # 0.3 10^3/uL (0.0-0.50); EOS % 4.4 % (0.0-3.0); HEMATOCRIT 38.4 % (36.0-47.0); HEMOGLOBIN 11.9 g/dl (12.0-15.5); LYMPH % 30.8 % (24.0-44.0); MEAN CORPUSCULAR HEMOGLOBIN 27.9 pg (27.0-33.0); MEAN CORPUSCULAR VOLUME 90.1 fl (80.0-96.0); MONO # 0.8 10^3/uL (0.0-0.8); MONO % 12.3 % (0.0-5.0); NEUTROPHILS # 3.3 10^3/uL (1.8-7.7); NEUTROPHILS % 51.7 % (36.0-66.0); PLATELET COUNT, AUTOMATED 218 10^3/uL (150-450); RED BLOOD COUNT 4.26 10^6/uL (4.00-5.40); WHITE BLOOD COUNT 6.4 10^3/uL (4.0-10.0)
[2018-11-19 08:50] LABS: ALBUMIN 3.8 GM/DL (3.2-5.2); ALT/SGPT 28 U/L (12-78); BILIRUBIN,TOTAL 0.4 MG/DL (0.2-1.0); BLOOD UREA NITROGEN 15 MG/DL (7-18); CALCIUM LEVEL 9.4 MG/DL (8.5-10.1); CARBON DIOXIDE LEVEL 30 MEQ/L (21-32); CHLORIDE LEVEL 109 MEQ/L (98-107); CHOLESTEROL LEVEL 145 MG/DL (<200); CHOLESTEROL RISK RATIO 2.589 (<5); CREATININE FOR GFR 0.95 MG/DL (0.55-1.30); FREE T4 0.98 NG/DL (0.76-1.46); GLOMERULAR FILTRATION RATE > 60.0 (>51); GLUCOSE, FASTING 87 MG/DL (70-100); HDL CHOLESTEROL 56 MG/DL (>40); LDL CHOLESTEROL 61 MG/DL (<100); NON-HDL-C 89 MG/DL; POTASSIUM SERUM 3.7 MEQ/L (3.5-5.1); SODIUM LEVEL 144 MEQ/L (136-145); TRIGLYCERIDES LEVEL 139 MG/DL (<150)
[2018-11-19 11:50] LABS: HEMOGLOBIN A1c 6.2 %
== END ==
LOC: M LAB 07:29
PROVIDERS: ATTEND Family Medicine
DX: E11.22 Type 2 diabetes mellitus with diabetic chronic kidney disease (principal); E78.2 Mixed hyperlipidemia

== ENCOUNTER 2018-12-24 01:24 | Emergency (ER) | payer MEDICARE ==
[~2018-12-24] VITALS: Ht 167.6 cm; Wt 93.5 kg
[2018-12-24] MEDS ORDERED: METO50TA7 OR (01:42)
[2018-12-24] MEDS ORDERED: TACR1CAP3 OR (01:42)
[2018-12-24] MEDS ORDERED: ASPI81TA26 OR (01:42)
[2018-12-24] MEDS ORDERED: METF500T13 OR (01:42)
[2018-12-24] MEDS ORDERED: MYCO250C OR (01:42)
[2018-12-24] MEDS ORDERED: PRED5TA OR (01:42)
[2018-12-24] MEDS ORDERED: MAG400TA OR (01:42)
[2018-12-24] MEDS ORDERED: NIFE60TA40 OR (01:42)
[2018-12-24] MEDS ORDERED: OZEM2INJ INJ (01:43)
[2018-12-24 02:31] LABS: BASO % 0.5 % (0.0-1.0); EOS # 0.4 10^3/uL (0.0-0.50); EOS % 5.1 % (0.0-3.0); HEMATOCRIT 41.4 % (36.0-47.0); HEMOGLOBIN 12.6 g/dl (12.0-15.5); LYMPH # 2.1 10^3/uL (1.5-4.5); LYMPH % 27.5 % (24.0-44.0); MEAN CORPUSCULAR HEMOGLOBIN 27.9 pg (27.0-33.0); MEAN CORPUSCULAR HGB CONC 30.4 g/dl (32.0-36.5); MEAN CORPUSCULAR VOLUME 91.8 fl (80.0-96.0); MONO # 0.9 10^3/uL (0.0-0.8); MONO % 11.3 % (0.0-5.0); NEUTROPHILS # 4.2 10^3/uL (1.8-7.7); NEUTROPHILS % 55.3 % (36.0-66.0); PLATELET COUNT, AUTOMATED 247 10^3/uL (150-450); RED BLOOD COUNT 4.51 10^6/uL (4.00-5.40); WHITE BLOOD COUNT 7.6 10^3/uL (4.0-10.0)
[2018-12-24] MEDS ORDERED: NS 1,000 ML IV ONE ×2 (03:00→08:15)
[2018-12-24 03:18] LABS: ERYTHROCYTE SEDIMENTATION RATE 27 mm/hr (0-30)
[2018-12-24 03:22] LABS: ALBUMIN 3.8 GM/DL (3.2-5.2); ALT/SGPT 32 U/L (12-78); BILIRUBIN,DIRECT < 0.1 MG/DL (0.0-0.2); BILIRUBIN,TOTAL 0.2 MG/DL (0.2-1.0); BLOOD UREA NITROGEN 20 MG/DL (7-18); C REACTIVE PROTEIN QUANTITATIV 0.51 MG/DL (0.00-0.30); CALCIUM LEVEL 9.1 MG/DL (8.5-10.1); CARBON DIOXIDE LEVEL 31 MEQ/L (21-32); CHLORIDE LEVEL 108 MEQ/L (98-107); CREATININE FOR GFR 1.06 MG/DL (0.55-1.30); GLOMERULAR FILTRATION RATE 57.7 (>51); GLUCOSE, FASTING 104 MG/DL (70-100); LIPASE 248 U/L (73-393); POTASSIUM SERUM 3.6 MEQ/L (3.5-5.1); SODIUM LEVEL 143 MEQ/L (136-145); TOTAL PROTEIN 7.6 GM/DL (6.4-8.2)
--- NOTE | 2018-12-24 05:04 | REPVR ---
EXAM: CT Abdomen and Pelvis Without Contrast EXAM DATE/TIME: 12/24/2018 2:52 AM CLINICAL HISTORY: 53 years old, female; Abdominal pain; Localized; Right lower quadrant (rlq); Prior surgery; Surgery date: 6+ months; Surgery type: Renal transplant; Additional info: Rlq abd pain, renal transplant, decreased urine output TECHNIQUE: Imaging protocol: Axial computed tomography images of the abdomen and pelvis without contrast. Coronal and sagittal reformatted images were created and reviewed. Radiation optimization: All CT scans at this facility use at least one of these dose optimization techniques: automated exposure control; mA and/or kV adjustment per patient size (includes targeted exams where dose is matched to clinical indication); or iterative reconstruction. COMPARISON: CT ABD PELVIS WITH CONTRAST 09/16/2016 8:43 PM FINDINGS: Lungs: The visualized portions of the lung bases are normal. Mediastinum: A small hiatal hernia is present. ABDOMEN: Liver: There are no focal liver lesions present. Gallbladder and bile ducts: The gallbladder is contracted, limiting its assessment. No definite stones identified. There is no biliary ductal dilation. Pancreas: The pancreas is normal with no ductal dilation. Spleen: The spleen is normal. Adrenals: The adrenal glands are normal. Kidneys and ureters: The [place] kidneys are markedly atrophic. There is a transplant kidney in the right hemipelvis. There is no fluid or significant stranding adjacent to the transplant kidney. There is no hydronephrosis. Stomach and bowel: There is no dilation or thickening of the colon. The small bowel appears unremarkable. Appendix: A normal appendix is identified. PELVIS: Bladder: The bladder is only partially distended and appears unremarkable. No stones identified. Reproductive: The uterus is absent. ABDOMEN and PELVIS: Intraperitoneal space: There is no free intraperitoneal air. There is no evidence of free intraperitoneal or pelvic fluid. Bones/joints: There are degenerative changes in both hips with subchondral cysts in the acetabulae bilaterally, grossly unchanged. No suspicious osseous lesions. No acute fractures or dislocations. Soft tissues: Surgical clips are seen in the right inguinal and external iliac regions. Vasculature: The vasculature demonstrates diffuse mild atherosclerotic calcification. Lymph nodes: No lymphadenopathy is seen. IMPRESSION: No acute abnormality identified. Unremarkable appearance of the transplant kidney in the right pelvis. Electronically signed by: Marina Santiago On 12/24/2018 05:03:36 AM
--- NOTE | 2018-12-24 06:07 | ECGEPIP ---
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
[2018-12-24] MEDS ORDERED: MORPHINE 2 MG/ML 1ML SYRINGE (J2270) IV PRN (08:45)
[2018-12-24] MEDS ORDERED: ONDANSETRON 4MG/2ML VIAL (J2405) IV ONE (08:45)
--- NOTE | 2018-12-24 09:28 | REP ---
ULTRASOUND RIGHT RENAL TRANSPLANT WITH DUPLEX DOPPLER EVALUATION: Real-time sonographic evaluation of the right renal transplant performed. It measures 11.5 x 5.7 x 6.6 cm. There is no mass, hydronephrosis or nephrolithiasis. Duplex Doppler evaluation of the renal artery is performed. Right external iliac artery demonstrates pre-anastomotic peak systolic velocity of 142.7 cm/s and post anastomotic peak systolic velocity 153 cm/s. At the anastomosis the main renal artery demonstrates peak systolic velocity 215.7 cm/s, in the mid aspect, 143.2 cm/s in the region of the renal hilum 130.8 cm/s. Velocity ratio of the main renal artery to the external iliac artery is 1.5. There is patent flow in the main renal vein, 38.2 cm/s. Resistive indices are measured in the upper, middle, and lower thirds of the transplant and range between 0.6 and 0.7. Acceleration times range between 0.05 to 0.06. IMPRESSION: No evidence of hydronephrosis or nephrolithiasis. Patent blood flow in renal artery and vein with possible mild narrowing of the main renal artery at the anastomosis. Electronically Signed by Harris Sharma MD 12/24/2018 04:27 P
[2018-12-24] MEDS ORDERED: ACETAMINOPHEN TAB 650MG DOSE (2X325MG) PO ONE (09:30)
[2018-12-24 10:03] VITALS: BP 99/52
== END 2018-12-24 10:13 | disposition home or self-care (01) ==
LOC: M ED 01:24
DX: R10.9 Unspecified abdominal pain (principal); Z94.0 Kidney transplant status; Z79.82 Long term (current) use of aspirin; Z79.84 Long term (current) use of oral hypoglycemic drugs; Z79.899 Other long term (current) drug therapy; Z88.5 Allergy status to narcotic agent; Z88.8 Allergy status to other drugs, medicaments and biological substances
CPT/HCPCS: 36415; 74176; 76776; 80048; 80076; 81001; 83605; 83690; 85025; 85652; 86140; 87040; 87086; 93005; 93041; 93975; 96361; 96374; 99285; J2405

== ENCOUNTER → 2019-01-10 | Outpatient (CLI) | payer MEDICARE ==
[~2019-01-10] MED LIST changes: +ASPI81TA26 OR; +MAG400TA OR; +METF500T13 OR; +METO50TA7 OR; +MM S100C PO; +MYCO250C OR; +NIFE60TA40 OR; +OZEM2INJ INJ; +PRED5TA OR; -STOO100C PO; +TACR1CAP3 OR
== END ==
LOC: M LAB 07:58
PROVIDERS: ATTEND Internal Medicine Nephrology
DX: Z94.0 Kidney transplant status (principal)

== ENCOUNTER 2019-02-04 09:30 | Emergency (ER) | payer MEDICARE ==
[~2019-02-04] VITALS: Ht 167.6 cm; Wt 93.6 kg
[~2019-02-04 09:30] MED LIST changes: -NIFE90TA20 PO; -ROSU20TA5 PO
[2019-02-04] MEDS ORDERED: NS 1,000 ML IV SCH (10:16)
[2019-02-04] MEDS ORDERED: NIFE90TA20 PO (10:28)
[2019-02-04] MEDS ORDERED: ROSU20TA5 PO (10:28)
[2019-02-04 11:00] LABS: BASO % 0.1 % (0.0-1.0); EOS # 0.1 10^3/uL (0.0-0.50); EOS % 1.5 % (0.0-3.0); HEMATOCRIT 41.8 % (36.0-47.0); HEMOGLOBIN 13.2 g/dl (12.0-15.5); LYMPH # 1.5 10^3/uL (1.5-4.5); LYMPH % 18.8 % (24.0-44.0); MEAN CORPUSCULAR HEMOGLOBIN 28.3 pg (27.0-33.0); MEAN CORPUSCULAR HGB CONC 31.6 g/dl (32.0-36.5); MEAN CORPUSCULAR VOLUME 89.7 fl (80.0-96.0); MONO # 0.8 10^3/uL (0.0-0.8); MONO % 10.3 % (0.0-5.0); NEUTROPHILS # 5.5 10^3/uL (1.8-7.7); PLATELET COUNT, AUTOMATED 220 10^3/uL (150-450); RED BLOOD COUNT 4.66 10^6/uL (4.00-5.40); WHITE BLOOD COUNT 7.9 10^3/uL (4.0-10.0)
[2019-02-04 11:10] LABS: INR 0.91
[2019-02-04 11:23] LABS: BILIRUBIN,DIRECT 0.1 MG/DL (0.0-0.2); BILIRUBIN,TOTAL 0.3 MG/DL (0.2-1.0); TOTAL PROTEIN 7.8 GM/DL (6.4-8.2)
[2019-02-04] MEDS: POTASSIUM CHLORIDE 10 MEQ SR TABLET PO ONE ×2 (12:46→12:49)
--- NOTE | 2019-02-04 12:52 | REP ---
Clinical: Abdominal pain and diarrhea. Technique: Axial noncontrast images from the lung bases to the pubic symphysis with coronal and sagittal re-formations. Comparison: 12/24/2018. Findings: Lung bases are clear. Liver, spleen, pancreas, gallbladder, bilateral adrenal glands and [place] atrophic kidneys are normal / stable. The enteric system is without obstruction or acute inflammatory process. Few scattered sigmoid diverticula noted without acute diverticulitis. Transplant kidney identified in the right lower quadrant without hydronephrosis or perinephric stranding. Pelvis demonstrates normal bladder and evidence of prior hysterectomy. No ascites. No free air. No adenopathy. Abdominal aorta without aneurysm. Musculoskeletal structures without focal osseous abnormality. Impression: 1. No acute abdominopelvic pathology appreciated. 2. Relatively normal stable transplant kidney in the right lower quadrant without perinephric stranding or hydronephrosis. Electronically Signed by Lg Sanford MD 02/04/2019 12:43 P
[2019-02-04 15:50] VITALS: BP 128/51
== END 2019-02-04 16:00 | disposition home or self-care (01) ==
LOC: M ED 09:30
DX: R19.7 Diarrhea, unspecified (principal); K92.1 Melena; R10.9 Unspecified abdominal pain; Z94.0 Kidney transplant status; K64.5 Perianal venous thrombosis; E11.9 Type 2 diabetes mellitus without complications; I10 Essential (primary) hypertension; E78.5 Hyperlipidemia, unspecified; Z79.899 Other long term (current) drug therapy; Z79.52 Long term (current) use of systemic steroids; Z79.84 Long term (current) use of oral hypoglycemic drugs; Z79.82 Long term (current) use of aspirin; Z88.5 Allergy status to narcotic agent; Z88.8 Allergy status to other drugs, medicaments and biological substances

== ENCOUNTER → 2019-02-04 | Outpatient (REF) | payer MEDICARE ==
[~2019-02-04] MED LIST changes: +NIFE90TA20 PO; +ROSU20TA5 PO
== END ==
LOC: M LAB REF 11:50
PROVIDERS: ATTEND Emergency Medicine
DX: R19.7 Diarrhea, unspecified (principal)

== ENCOUNTER → 2019-02-25 | Outpatient (CLI) | payer MEDICARE ==
[~2019-02-25] MED LIST changes: +NIFE90TA20 PO; +ROSU20TA5 PO
[2019-02-25 08:02] LABS: BASO # 0.1 10^3/uL (0.0-0.2); EOS # 0.7 10^3/uL (0.0-0.50); EOS % 9.2 % (0.0-3.0); HEMATOCRIT 39.7 % (36.0-47.0); HEMOGLOBIN 12.2 g/dl (12.0-15.5); LYMPH # 2.2 10^3/uL (1.5-4.5); LYMPH % 29.6 % (24.0-44.0); MEAN CORPUSCULAR HEMOGLOBIN 27.5 pg (27.0-33.0); MEAN CORPUSCULAR HGB CONC 30.7 g/dl (32.0-36.5); MEAN CORPUSCULAR VOLUME 89.4 fl (80.0-96.0); MONO # 0.8 10^3/uL (0.0-0.8); NEUTROPHILS # 3.5 10^3/uL (1.8-7.7); NEUTROPHILS % 48.5 % (36.0-66.0); PLATELET COUNT, AUTOMATED 276 10^3/uL (150-450); RED BLOOD COUNT 4.44 10^6/uL (4.00-5.40); WHITE BLOOD COUNT 7.3 10^3/uL (4.0-10.0)
[2019-02-25 08:17] LABS: HEMOGLOBIN A1c 7.1 %
[2019-02-25 08:27] LABS: ALBUMIN 3.9 GM/DL (3.2-5.2); ALT/SGPT 27 U/L (12-78); BILIRUBIN,TOTAL 0.3 MG/DL (0.2-1.0); BLOOD UREA NITROGEN 21 MG/DL (7-18); CALCIUM LEVEL 9.9 MG/DL (8.5-10.1); CARBON DIOXIDE LEVEL 30 MEQ/L (21-32); CHLORIDE LEVEL 108 MEQ/L (98-107); CHOLESTEROL LEVEL 131 MG/DL (<200); CHOLESTEROL RISK RATIO 2.519 (<5); CREATININE FOR GFR 0.98 MG/DL (0.55-1.30); GLOMERULAR FILTRATION RATE > 60.0 (>51); GLUCOSE, FASTING 88 MG/DL (70-100); HDL CHOLESTEROL 52 MG/DL (>40); LDL CHOLESTEROL 50 MG/DL (<100); NON-HDL-C 79 MG/DL; POTASSIUM SERUM 4.2 MEQ/L (3.5-5.1); SODIUM LEVEL 144 MEQ/L (136-145); TOTAL PROTEIN 7.1 GM/DL (6.4-8.2); TRIGLYCERIDES LEVEL 144 MG/DL (<150)
== END ==
LOC: M LAB 07:04
PROVIDERS: ATTEND Family Medicine
DX: E11.22 Type 2 diabetes mellitus with diabetic chronic kidney disease (principal); E78.2 Mixed hyperlipidemia

== ENCOUNTER → 2019-02-27 | Outpatient (REF) | payer MEDICARE ==
[~2019-02-27] MED LIST changes: +ACET-683 PO; -SIMV40TA2 PO; +SIMV40TA20 PO
== END ==
LOC: M LAB REF 17:10
PROVIDERS: ATTEND Physician Assistant
DX: J02.9 Acute pharyngitis, unspecified (principal)

== ENCOUNTER 2019-06-02 07:25 | Emergency (ER) | payer MEDICARE ==
[~2019-06-02] VITALS: Ht 165.1 cm; Wt 94.5 kg
[~2019-06-02 07:25] MED LIST changes: -ACET-683 PO; -SIMV40TA2 PO; +SIMV40TA20 PO
[2019-06-02] MEDS ORDERED: ACET-683 PO (07:34)
--- NOTE | 2019-06-02 08:55 | REP ---
Right shoulder series: Three views. History: Injury in a fall. Findings: Three views of the right shoulder demonstrate prominent spurring at the inferior aspect of the acromion process and mild osteoarthritis of the acromioclavicular articulation. The glenohumeral and AC joints are normally aligned. There is mild spurring at the inferior aspect of the glenoid. No fracture is seen. Periarticular soft tissues are unremarkable. Impression: Osteoarthritic changes in the glenohumeral and acromioclavicular joints. A large spur projecting inferiorly off the acromion process. No traumatic abnormalities seen. Electronically Signed by Delroy Green MD 06/02/2019 09:54 A
--- NOTE | 2019-06-02 09:02 | REP ---
Right humerus: Two views. History: Injury in a fall. Findings: Two views of the right humerus demonstrate acromion process spurring. Glenohumeral and acromioclavicular joint osteoarthritic spurring is seen. There is minimal spurring of the coronoid process of the proximal ulna. No traumatic abnormality seen. Impression: No fracture noted. Osteoarthritic spurring. Electronically Signed by Delroy Green MD 06/02/2019 09:54 A
[2019-06-02] MEDS ORDERED: traMADol 50 MG TAB PO ONE (10:15)
[2019-06-02 11:00] VITALS: BP 180/100
== END 2019-06-02 11:01 | disposition home or self-care (01) ==
LOC: M ED 07:25
DX: M25.511 Pain in right shoulder (principal); G89.29 Other chronic pain; E11.22 Type 2 diabetes mellitus with diabetic chronic kidney disease; I12.9 Hypertensive chronic kidney disease with stage 1 through stage 4 chronic kidney disease, or unspecified chronic kidney disease; E78.9 Disorder of lipoprotein metabolism, unspecified; J45.909 Unspecified asthma, uncomplicated; E07.9 Disorder of thyroid, unspecified; N18.4 Chronic kidney disease, stage 4 (severe); Z94.0 Kidney transplant status; Z88.5 Allergy status to narcotic agent; Z88.8 Allergy status to other drugs, medicaments and biological substances; Z79.899 Other long term (current) drug therapy; Z79.52 Long term (current) use of systemic steroids; Z98.84 Bariatric surgery status; Z79.82 Long term (current) use of aspirin

== ENCOUNTER → 2019-06-02 | Outpatient (CLI) | payer MEDICARE ==
[~2019-06-02] MED LIST changes: +SIMV40TA2 PO; -SIMV40TA20 PO
[2019-06-02 08:06] LABS: BLOOD UREA NITROGEN 17 MG/DL (7-18); CALCIUM LEVEL 9.7 MG/DL (8.5-10.1); CARBON DIOXIDE LEVEL 30 MEQ/L (21-32); CHLORIDE LEVEL 108 MEQ/L (98-107); CREATININE FOR GFR 1.01 MG/DL (0.55-1.30); GLOMERULAR FILTRATION RATE > 60.0 (>51); GLUCOSE, FASTING 94 MG/DL (70-100); POTASSIUM SERUM 3.6 MEQ/L (3.5-5.1); SODIUM LEVEL 145 MEQ/L (136-145)
[2019-06-02 10:33] LABS: HEMOGLOBIN A1c 6.4 %
== END ==
LOC: M LAB 07:04
PROVIDERS: ATTEND Physician Assistant
DX: E11.22 Type 2 diabetes mellitus with diabetic chronic kidney disease (principal)

== ENCOUNTER → 2019-06-10 | Outpatient (REF) | payer MEDICARE ==
[~2019-06-10] MED LIST changes: +ACET-683 PO
== END ==
LOC: M LAB REF 14:03
PROVIDERS: ATTEND Internal Medicine Nephrology
DX: Z94.0 Kidney transplant status (principal)

== ENCOUNTER → 2019-09-30 | Outpatient (CLI) | payer MEDICARE ==
[2019-09-30 08:31] LABS: BASO # 0.1 10^3/uL (0.0-0.2); BASO % 0.6 % (0.0-1.0); EOS # 0.3 10^3/uL (0.0-0.5); EOS % 3.9 % (0.0-3.0); HEMATOCRIT 41.8 % (36.0-47.0); HEMOGLOBIN 12.7 g/dl (12.0-15.5); LYMPH # 2.3 10^3/uL (1.5-5.0); LYMPH % 29.1 % (24.0-44.0); MEAN CORPUSCULAR HEMOGLOBIN 27.4 pg (27.0-33.0); MEAN CORPUSCULAR HGB CONC 30.4 g/dl (32.0-36.5); MEAN CORPUSCULAR VOLUME 90.3 fl (80.0-96.0); MONO # 0.9 10^3/uL (0.0-0.8); MONO % 11.3 % (0.0-5.0); NEUTROPHILS # 4.3 10^3/uL (1.5-8.5); NEUTROPHILS % 54.7 % (36.0-66.0); PLATELET COUNT, AUTOMATED 230 10^3/uL (150-450); RED BLOOD COUNT 4.63 10^6/uL (4.00-5.40); WHITE BLOOD COUNT 7.9 10^3/uL (4.0-10.0)
[2019-09-30 08:45] LABS: APPEARANCE, URINE HAZY (CLEAR); BACTERIA, URINE AUTO 1+ (NEGATIVE); BILIRUBIN, URINE AUTO NEGATIVE (NEGATIVE); BLOOD, URINE BLOOD NEGATIVE (NEGATIVE); COLOR, URINE YELLOW (YELLOW); GLUCOSE, URINE (UA) AUTO NEGATIVE (NEGATIVE); KETONE, URINE AUTO NEGATIVE (NEGATIVE); LEUKOCYTE ESTERASE, URINE AUTO NEGATIVE (NEGATIVE); NITRITE, URINE AUTO NEGATIVE (NEGATIVE); PROTEIN, URINE AUTO NEGATIVE (NEGATIVE); RBC, URINE AUTO 0 /HPF (0-3); SPECIFIC GRAVITY URINE AUTO 1.014 (1.002-1.035); SQUAMOUS EPITHELIAL CELL UR AU 4 /HPF (0-6); UROBILINOGEN, URINE AUTO 0.2 mg/dL (0.0-2.0); WBC, URINE AUTO 1 /HPF (0-3)
[2019-09-30 09:05] LABS: ALBUMIN 3.7 GM/DL (3.2-5.2); AMYLASE 65 U/L (25-115); BLOOD UREA NITROGEN 17 MG/DL (7-18); CALCIUM LEVEL 9.3 MG/DL (8.5-10.1); CARBON DIOXIDE LEVEL 30 MEQ/L (21-32); CHLORIDE LEVEL 109 MEQ/L (98-107); CREATININE FOR GFR 0.89 MG/DL (0.55-1.30); CREATININE,RANDOM URINE 95.2 MG/DL; GLOMERULAR FILTRATION RATE > 60.0 (>51); GLUCOSE, FASTING 96 MG/DL (70-100); LIPASE 231 U/L (73-393); MAGNESIUM LEVEL 1.9 MG/DL (1.8-2.4); PHOSPHORUS LEVEL 3.5 MG/DL (2.5-4.9); POTASSIUM SERUM 3.8 MEQ/L (3.5-5.1); SODIUM LEVEL 143 MEQ/L (136-145); TOTAL PROTEIN,RANDOM URINE 18.8 MG/DL (0.0-12.0)
== END ==
LOC: M LAB 08:01
PROVIDERS: ATTEND Internal Medicine Nephrology
DX: Z94.0 Kidney transplant status (principal); N18.5 Chronic kidney disease, stage 5; D84.9 Immunodeficiency, unspecified; Z79.899 Other long term (current) drug therapy

== ENCOUNTER → 2019-10-10 | Outpatient (REF) | payer MEDICARE ==
[2019-10-10 14:10] LABS: CHOLESTEROL RISK RATIO 3.02 (<5)
== END ==
LOC: M LAB REF 13:04
PROVIDERS: ATTEND Internal Medicine Nephrology
DX: Z94.0 Kidney transplant status (principal); E78.2 Mixed hyperlipidemia

== ENCOUNTER → 2019-10-17 | Outpatient (CLI) | payer MEDICARE ==
[2019-10-17 08:10] LABS: BASO # 0.1 10^3/uL (0.0-0.2); BASO % 0.7 % (0.0-1.0); EOS # 0.3 10^3/uL (0.0-0.5); EOS % 3.8 % (0.0-3.0); HEMATOCRIT 43.6 % (36.0-47.0); HEMOGLOBIN 13.3 g/dl (12.0-15.5); LYMPH # 2.4 10^3/uL (1.5-5.0); LYMPH % 32.1 % (24.0-44.0); MEAN CORPUSCULAR HEMOGLOBIN 27.4 pg (27.0-33.0); MEAN CORPUSCULAR HGB CONC 30.5 g/dl (32.0-36.5); MEAN CORPUSCULAR VOLUME 89.9 fl (80.0-96.0); MONO # 0.9 10^3/uL (0.0-0.8); MONO % 12.3 % (0.0-5.0); NEUTROPHILS # 3.8 10^3/uL (1.5-8.5); NEUTROPHILS % 50.8 % (36.0-66.0); PLATELET COUNT, AUTOMATED 270 10^3/uL (150-450); RED BLOOD COUNT 4.85 10^6/uL (4.00-5.40); WHITE BLOOD COUNT 7.5 10^3/uL (4.0-10.0)
[2019-10-17 08:41] LABS: ALT/SGPT 25 U/L (12-78); BILIRUBIN,TOTAL 0.5 MG/DL (0.2-1.0); BLOOD UREA NITROGEN 15 MG/DL (7-18); CARBON DIOXIDE LEVEL 32 MEQ/L (21-32); CHLORIDE LEVEL 107 MEQ/L (98-107); CHOLESTEROL LEVEL 144 MG/DL (<200); CHOLESTEROL RISK RATIO 2.526 (<5); CREATININE FOR GFR 0.98 MG/DL (0.55-1.30); FREE T4 1.01 NG/DL (0.76-1.46); GLOMERULAR FILTRATION RATE > 60.0 (>51); GLUCOSE, FASTING 97 MG/DL (70-100); HDL CHOLESTEROL 57 MG/DL (>40); LDL CHOLESTEROL 52 MG/DL (<100); NON-HDL-C 87 MG/DL; SODIUM LEVEL 142 MEQ/L (136-145); TOTAL PROTEIN 7.9 GM/DL (6.4-8.2); TRIGLYCERIDES LEVEL 174 MG/DL (<150)
== END ==
LOC: M LAB 07:23
PROVIDERS: ATTEND Family Medicine
DX: E11.22 Type 2 diabetes mellitus with diabetic chronic kidney disease (principal); E78.2 Mixed hyperlipidemia; N18.9 Chronic kidney disease, unspecified; I12.9 Hypertensive chronic kidney disease with stage 1 through stage 4 chronic kidney disease, or unspecified chronic kidney disease

== ENCOUNTER → 2020-01-08 | Outpatient (CLI) | payer MEDICARE | LOC: M LAB 07:24 | PROVIDERS: ATTEND Internal Medicine Gastroenterology | DX: R10.13 Epigastric pain (principal) ==

== ENCOUNTER → 2020-01-12 | Outpatient (REF) | payer MEDICARE ==
[~2020-01-12] MED LIST changes: -AMLO10TA5 PO; +AMLO1TAB25 PO; +PANT40TA29 PO; -PANT40TA3 PO
== END ==
LOC: M LAB REF 16:55
PROVIDERS: ATTEND Internal Medicine Nephrology
DX: Z94.0 Kidney transplant status (principal); Z48.22 Encounter for aftercare following kidney transplant

== ENCOUNTER → 2020-01-19 | Outpatient (CLI) | payer MEDICARE ==
[2020-01-19 08:02] LABS: BASO # 0.1 10^3/uL (0.0-0.2); BASO % 0.7 % (0.0-1.0); EOS # 0.6 10^3/uL (0.0-0.5); EOS % 7.7 % (0.0-3.0); HEMATOCRIT 42.6 % (36.0-47.0); HEMOGLOBIN 13.2 g/dl (12.0-15.5); LYMPH # 2.2 10^3/uL (1.5-5.0); LYMPH % 30.7 % (24.0-44.0); MEAN CORPUSCULAR HEMOGLOBIN 28.1 pg (27.0-33.0); MEAN CORPUSCULAR VOLUME 90.6 fl (80.0-96.0); MONO # 0.9 10^3/uL (0.0-0.8); MONO % 12.9 % (0.0-5.0); NEUTROPHILS # 3.5 10^3/uL (1.5-8.5); NEUTROPHILS % 47.6 % (36.0-66.0); PLATELET COUNT, AUTOMATED 249 10^3/uL (150-450); WHITE BLOOD COUNT 7.3 10^3/uL (4.0-10.0)
[2020-01-19 08:20] LABS: BLOOD UREA NITROGEN 15 MG/DL (7-18); CALCIUM LEVEL 9.9 MG/DL (8.5-10.1); CARBON DIOXIDE LEVEL 29 MEQ/L (21-32); CHLORIDE LEVEL 107 MEQ/L (98-107); CREATININE FOR GFR 1.04 MG/DL (0.55-1.30); GLOMERULAR FILTRATION RATE > 60.0 (>51); GLUCOSE, FASTING 109 MG/DL (70-100); POTASSIUM SERUM 3.8 MEQ/L (3.5-5.1); SODIUM LEVEL 144 MEQ/L (136-145)
[2020-01-19 11:01] LABS: HEMOGLOBIN A1c 7.2 %
== END ==
LOC: M LAB 07:23
PROVIDERS: ATTEND Physician Assistant
DX: E11.22 Type 2 diabetes mellitus with diabetic chronic kidney disease (principal); K21.9 Gastro-esophageal reflux disease without esophagitis; N18.9 Chronic kidney disease, unspecified

== ENCOUNTER → 2020-02-13 | Outpatient (CLI) | payer MEDICARE ==
[2020-04-08 15:51] LABS: BASO % 0.5 % (0.0-1.0); EOS # 1.2 10^3/uL (0.0-0.5); EOS % 15.1 % (0.0-3.0); HEMATOCRIT 43.2 % (36.0-47.0); HEMOGLOBIN 13.5 g/dl (12.0-15.5); LYMPH # 2.1 10^3/uL (1.5-5.0); LYMPH % 27.9 % (24.0-44.0); MEAN CORPUSCULAR HEMOGLOBIN 28.4 pg (27.0-33.0); MEAN CORPUSCULAR HGB CONC 31.3 g/dl (32.0-36.5); MEAN CORPUSCULAR VOLUME 90.9 fl (80.0-96.0); MONO # 1.1 10^3/uL (0.0-0.8); MONO % 13.8 % (0.0-5.0); NEUTROPHILS # 3.3 10^3/uL (1.5-8.5); NEUTROPHILS % 42.4 % (36.0-66.0); PLATELET COUNT, AUTOMATED 232 10^3/uL (150-450); RED BLOOD COUNT 4.75 10^6/uL (4.00-5.40); WHITE BLOOD COUNT 7.7 10^3/uL (4.0-10.0)
[2020-04-08 16:00] LABS: APPEARANCE, URINE CLEAR (CLEAR); BACTERIA, URINE AUTO NEGATIVE (NEGATIVE); BILIRUBIN, URINE AUTO NEGATIVE (NEGATIVE); BLOOD, URINE BLOOD NEGATIVE (NEGATIVE); COLOR, URINE YELLOW (YELLOW); GLUCOSE, URINE (UA) AUTO NEGATIVE (NEGATIVE); KETONE, URINE AUTO NEGATIVE (NEGATIVE); LEUKOCYTE ESTERASE, URINE AUTO NEGATIVE (NEGATIVE); NITRITE, URINE AUTO NEGATIVE (NEGATIVE); PROTEIN, URINE AUTO NEGATIVE (NEGATIVE); RBC, URINE AUTO 2 /HPF (0-3); SPECIFIC GRAVITY URINE AUTO 1.013 (1.002-1.035); SQUAMOUS EPITHELIAL CELL UR AU 1 /HPF (0-6); UROBILINOGEN, URINE AUTO 0.2 mg/dL (0.0-2.0); WBC, URINE AUTO 2 /HPF (0-3)
[2020-04-10 11:52] LABS: BLOOD UREA NITROGEN 17 MG/DL (7-18); CALCIUM LEVEL 10.2 MG/DL (8.5-10.1); CARBON DIOXIDE LEVEL 31 MEQ/L (21-32); CHLORIDE LEVEL 108 MEQ/L (98-107); CHOLESTEROL LEVEL 162 MG/DL (<200); CREATININE FOR GFR 1.03 MG/DL (0.55-1.30); GLOMERULAR FILTRATION RATE > 60.0 (>51); GLUCOSE, FASTING 108 MG/DL (70-100); HDL CHOLESTEROL 45 MG/DL (>40); LDL CHOLESTEROL 68 MG/DL (<100); NON-HDL-C 117 MG/DL; PHOSPHORUS LEVEL 4.1 MG/DL (2.5-4.9); POTASSIUM SERUM 3.8 MEQ/L (3.5-5.1); SODIUM LEVEL 143 MEQ/L (136-145); TOTAL PROTEIN,RANDOM URINE 16.2 MG/DL (0.0-12.0); TRIGLYCERIDES LEVEL 246 MG/DL (<150)
== END ==
LOC: M LAB 06:18
PROVIDERS: ATTEND Internal Medicine Nephrology
DX: Z94.0 Kidney transplant status (principal); N18.5 Chronic kidney disease, stage 5; D84.9 Immunodeficiency, unspecified; Z79.899 Other long term (current) drug therapy

== ENCOUNTER → 2020-02-19 | Outpatient (CLI) | payer MEDICARE, SELFPAY | LOC: M LABSMTC 14:00 | PROVIDERS: ATTEND Family Medicine | DX: Z11.59 Encounter for screening for other viral diseases (principal) | CPT/HCPCS: C9803; U0003 ==

== ENCOUNTER → 2020-04-13 | Outpatient (REF) | payer MEDICARE | LOC: M LAB REF 17:41 | PROVIDERS: ATTEND Internal Medicine Nephrology | DX: Z94.0 Kidney transplant status (principal); Z48.22 Encounter for aftercare following kidney transplant ==

== ENCOUNTER → 2020-04-24 | Outpatient (CLI) | payer MEDICARE ==
[2020-04-24 09:45] LABS: BASO % 0.6 % (0.0-1.0); EOS # 0.3 10^3/uL (0.0-0.5); EOS % 4.9 % (0.0-3.0); HEMATOCRIT 42.3 % (36.0-47.0); HEMOGLOBIN 12.8 g/dl (12.0-15.5); LYMPH # 2.5 10^3/uL (1.5-5.0); LYMPH % 36.7 % (24.0-44.0); MEAN CORPUSCULAR HEMOGLOBIN 27.1 pg (27.0-33.0); MEAN CORPUSCULAR HGB CONC 30.3 g/dl (32.0-36.5); MEAN CORPUSCULAR VOLUME 89.6 fl (80.0-96.0); MONO # 0.8 10^3/uL (0.0-0.8); MONO % 11.1 % (0.0-5.0); NEUTROPHILS # 3.1 10^3/uL (1.5-8.5); NEUTROPHILS % 46.4 % (36.0-66.0); PLATELET COUNT, AUTOMATED 233 10^3/uL (150-450); RED BLOOD COUNT 4.72 10^6/uL (4.00-5.40); WHITE BLOOD COUNT 6.8 10^3/uL (4.0-10.0)
[2020-04-24 10:11] LABS: HEMOGLOBIN A1c 6.7 %
[2020-04-24 10:13] LABS: ALBUMIN 4.1 GM/DL (3.2-5.2); ALT/SGPT 19 U/L (12-78); BILIRUBIN,TOTAL 0.4 MG/DL (0.2-1.0); BLOOD UREA NITROGEN 14 MG/DL (7-18); CALCIUM LEVEL 9.7 MG/DL (8.5-10.1); CARBON DIOXIDE LEVEL 31 MEQ/L (21-32); CHLORIDE LEVEL 107 MEQ/L (98-107); CHOLESTEROL LEVEL 149 MG/DL (<200); CHOLESTEROL RISK RATIO 2.525 (<5); CREATININE FOR GFR 1.08 MG/DL (0.55-1.30); FREE T4 1.05 NG/DL (0.76-1.46); GLOMERULAR FILTRATION RATE > 60.0 (>51); GLUCOSE, FASTING 97 MG/DL (70-100); HDL CHOLESTEROL 59 MG/DL (>40); LDL CHOLESTEROL 57 MG/DL (<100); NON-HDL-C 90 MG/DL; SODIUM LEVEL 143 MEQ/L (136-145); TOTAL PROTEIN 7.9 GM/DL (6.4-8.2); TRIGLYCERIDES LEVEL 166 MG/DL (<150)
== END ==
LOC: M LAB 08:17
PROVIDERS: ATTEND Family Medicine
DX: E11.22 Type 2 diabetes mellitus with diabetic chronic kidney disease (principal); E78.2 Mixed hyperlipidemia; Z94.0 Kidney transplant status

== ENCOUNTER → 2020-04-27 | Outpatient (CLI) | payer MEDICARE ==
[2020-04-27 14:34] LABS: HEPATITIS A ANTIBODY IGM NEGATIVE (NEGATIVE); HEPATITIS B CORE ANTIBODY IGM NEGATIVE (NEGATIVE); HEPATITIS B SURFACE ANTIGEN NEGATIVE (NEGATIVE); HEPATITIS C VIRUS ABY INDEX 0.1 INDEX (<0.8); HIV 1&2 SCREEN CENTAUR NEGATIVE (NEGATIVE)
[2020-04-28 19:08] LABS: HSV IgM TYPES 1&2 <0.91 Ratio (0.00-0.90); HSV TYPE II IgG SPECIFIC >23.60 index (0.00-0.90)
== END ==
LOC: M LAB 11:50
PROVIDERS: ATTEND Family Medicine
DX: Z11.3 Encounter for screening for infections with a predominantly sexual mode of transmission (principal)

== ENCOUNTER → 2020-05-22 | Outpatient (CLI) | payer MEDICARE | LOC: M LABSMTC 10:30 | PROVIDERS: ATTEND Anesthesiology | DX: Z01.812 Encounter for preprocedural laboratory examination (principal); Z20.828 Contact with and (suspected) exposure to other viral communicable diseases ==

== ENCOUNTER 2020-05-27 11:25 | Day surgery (SDC) | payer MEDICARE ==
[~2020-05-27] VITALS: Ht 167.6 cm; Wt 95.7 kg
[~2020-05-27 11:25] MED LIST changes: +NS 1,000 ML IV ONE
[2020-05-27] MEDS ORDERED: propofoL 200 MG/20 ML VIAL As Ordered ONE (12:19)
[2020-05-27] MEDS ORDERED: LIDOCAINE 2% 100MG/5ML SDV (FOR ANES.) As Ordered ONE (12:29)
--- NOTE | 2020-05-27 12:37 | ROOR ---
Patient Name: Brandi Oconnor Procedure Date: 05/27/2020 12:14 PM Date of : 1965 Age: 55 Room: [facility] Gender: Female Note Status: Finalized Procedure: Colonoscopy Indications: Rectal bleeding Providers: Shaji Escalona Jr, MD Referring MD: Radha CASTILLO DO Requesting Provider: Medicines: Propofol per Anesthesia Complications: No immediate complications. Procedure: Pre-Anesthesia Assessment: - Prior to the procedure, a History and Physical was performed, and patient medications and allergies were reviewed. The patient is competent. The risks and benefits of the procedure and the sedation options and risks were discussed with the patient. All questions were answered and informed consent was obtained. Patient identification and proposed procedure were verified by the physician and the nurse in the pre-procedure area and in the procedure room. Mental Status Examination: alert and oriented. Airway Examination: normal oropharyngeal airway and neck mobility. Respiratory Examination: clear to auscultation. CV Examination: normal. ASA Grade Assessment: II - A patient with mild systemic disease. After reviewing the risks and benefits, the patient was deemed in satisfactory condition to undergo the procedure. The anesthesia plan was to use moderate sedation / analgesia (conscious sedation). Immediately prior to administration of medications, the patient was re-assessed for adequacy to receive sedatives. The heart rate, respiratory rate, oxygen saturations, blood pressure, adequacy of pulmonary ventilation, and response to care were monitored throughout the procedure. The physical status of the patient was re-assessed after the procedure. The Colonoscope was introduced through the anus and advanced to the cecum, identified by appendiceal orifice and ileocecal valve. The colonoscopy was performed without difficulty. The patient tolerated the procedure well. The quality of the bowel preparation was adequate. Findings: The rectum, recto-sigmoid colon, descending colon, transverse colon, ascending colon, cecum, appendiceal orifice and ileocecal valve appeared normal. Multiple small-mouthed diverticula were found in the sigmoid colon. Non-bleeding external and internal hemorrhoids were found during retroflexion and during perianal exam. The hemorrhoids were Grade III (internal hemorrhoids that prolapse but require manual reduction). Impression: - The rectum, recto-sigmoid colon, descending colon, transverse colon, ascending colon, cecum, appendiceal orifice and ileocecal valve are normal. - Diverticulosis in the sigmoid colon. - Non-bleeding external and internal hemorrhoids. - No specimens collected. Recommendation: - Repeat colonoscopy in 10 years for screening purposes. - Return to my office at appointment to be scheduled. Procedure Code(s): --- Professional --- 59163, Colonoscopy, flexible; diagnostic, including collection of specimen(s) by brushing or washing, when performed (separate procedure) Diagnosis Code(s): --- Professional --- K64.2, Third degree hemorrhoids K62.5, Hemorrhage of anus and rectum K57.30, Diverticulosis of large intestine without perforation or abscess without bleeding CPT copyright 2019 [employer]. All rights reserved. The codes documented in this report are preliminary and upon playground official review may be revised to meet current compliance requirements. Shaji Escalona MD Shaji Escalona Jr, MD 05/27/2020 12:36:48 PM Electronically signed by Shaji Escalona Jr, MD Number of Addenda: 0 Note Initiated On: 05/27/2020 12:14 PM Estimated Blood Loss: Estimated blood loss: none.
[2020-05-27 13:00] VITALS: BP 156/86
== END 2020-05-27 13:20 | disposition home or self-care (01) ==
LOC: M OPP 11:25
PROVIDERS: ATTEND Surgery
DX: K62.5 Hemorrhage of anus and rectum (principal); K57.30 Diverticulosis of large intestine without perforation or abscess without bleeding; K64.2 Third degree hemorrhoids; I12.0 Hypertensive chronic kidney disease with stage 5 chronic kidney disease or end stage renal disease; E78.5 Hyperlipidemia, unspecified; E11.9 Type 2 diabetes mellitus without complications; K21.9 Gastro-esophageal reflux disease without esophagitis; R12 Heartburn; N18.6 End stage renal disease; F41.9 Anxiety disorder, unspecified; F32.9 Major depressive disorder, single episode, unspecified; G47.30 Sleep apnea, unspecified; Z88.5 Allergy status to narcotic agent; Z88.8 Allergy status to other drugs, medicaments and biological substances; Z79.84 Long term (current) use of oral hypoglycemic drugs; Z79.899 Other long term (current) drug therapy

== ENCOUNTER → 2020-06-09 | Outpatient (CLI) | payer MEDICARE ==
[~2020-06-09] MED LIST changes: -NS 1,000 ML IV ONE
== END ==
LOC: M LABSMTC 12:49
PROVIDERS: ATTEND Internal Medicine Gastroenterology
DX: Z20.818 Contact with and (suspected) exposure to other bacterial communicable diseases (principal)

== ENCOUNTER → 2020-06-09 | Outpatient (CLI) | payer MEDICARE | LOC: M LABSMTC 11:05 | PROVIDERS: ATTEND Pediatrics | DX: Z20.828 Contact with and (suspected) exposure to other viral communicable diseases (principal) ==

== ENCOUNTER → 2020-06-12 | Outpatient (CLI) | payer MEDICARE ==
[2020-06-12 09:06] LABS: APPEARANCE, URINE CLEAR (CLEAR); BACTERIA, URINE AUTO NEGATIVE (NEGATIVE); BILIRUBIN, URINE AUTO NEGATIVE (NEGATIVE); BLOOD, URINE BLOOD 1+ (NEGATIVE); COLOR, URINE YELLOW (YELLOW); GLUCOSE, URINE (UA) AUTO NEGATIVE (NEGATIVE); KETONE, URINE AUTO NEGATIVE (NEGATIVE); LEUKOCYTE ESTERASE, URINE AUTO NEGATIVE (NEGATIVE); MUCUS, URINE SMALL (NEGATIVE); NITRITE, URINE AUTO NEGATIVE (NEGATIVE); PROTEIN, URINE AUTO NEGATIVE (NEGATIVE); RBC, URINE AUTO 2 /HPF (0-3); SPECIFIC GRAVITY URINE AUTO 1.025 (1.002-1.035); SQUAMOUS EPITHELIAL CELL UR AU 1 /HPF (0-6); UROBILINOGEN, URINE AUTO 0.2 mg/dL (0.0-2.0); WBC, URINE AUTO 3 /HPF (0-3)
[2020-06-12 09:10] LABS: BASO # 0.1 10^3/uL (0.0-0.2); BASO % 0.7 % (0.0-1.0); EOS # 0.3 10^3/uL (0.0-0.5); EOS % 3.6 % (0.0-3.0); HEMOGLOBIN 12.4 g/dl (12.0-15.5); LYMPH # 2.5 10^3/uL (1.5-5.0); LYMPH % 32.5 % (24.0-44.0); MEAN CORPUSCULAR HEMOGLOBIN 27.1 pg (27.0-33.0); MEAN CORPUSCULAR HGB CONC 30.2 g/dl (32.0-36.5); MEAN CORPUSCULAR VOLUME 89.7 fl (80.0-96.0); MONO # 0.9 10^3/uL (0.0-0.8); MONO % 11.5 % (0.0-5.0); NEUTROPHILS # 3.9 10^3/uL (1.5-8.5); NEUTROPHILS % 51.3 % (36.0-66.0); PLATELET COUNT, AUTOMATED 266 10^3/uL (150-450); RED BLOOD COUNT 4.57 10^6/uL (4.00-5.40)
[2020-06-12 09:39] LABS: ALBUMIN 4.3 GM/DL (3.2-5.2); BLOOD UREA NITROGEN 19 MG/DL (7-18); CALCIUM LEVEL 10.2 MG/DL (8.5-10.1); CARBON DIOXIDE LEVEL 31 MEQ/L (21-32); CHLORIDE LEVEL 107 MEQ/L (98-107); CHOLESTEROL LEVEL 154 MG/DL (<200); CHOLESTEROL RISK RATIO 2.851 (<5); CREATININE FOR GFR 1.05 MG/DL (0.55-1.30); GLOMERULAR FILTRATION RATE > 60.0 (>51); GLUCOSE, FASTING 94 MG/DL (70-100); HDL CHOLESTEROL 54 MG/DL (>40); LDL CHOLESTEROL 59 MG/DL (<100); NON-HDL-C 100 MG/DL; PHOSPHORUS LEVEL 3.8 MG/DL (2.5-4.9); POTASSIUM SERUM 3.4 MEQ/L (3.5-5.1); SODIUM LEVEL 144 MEQ/L (136-145); TRIGLYCERIDES LEVEL 205 MG/DL (<150); URIC ACID 2.8 MG/DL (2.6-6.0)
[2020-06-14 09:02] LABS: WHITE BLOOD COUNT 7.6 10^3/uL (4.0-10.0)
[2020-06-14 10:19] LABS: PTH INTACT 88.1 PG/ML (18.5-88.0)
== END ==
LOC: M LAB 08:25
PROVIDERS: ATTEND Internal Medicine Nephrology
DX: Z48.22 Encounter for aftercare following kidney transplant (principal); Z94.0 Kidney transplant status; E11.22 Type 2 diabetes mellitus with diabetic chronic kidney disease; D63.1 Anemia in chronic kidney disease; M10.9 Gout, unspecified; E83.42 Hypomagnesemia; N25.81 Secondary hyperparathyroidism of renal origin; E78.2 Mixed hyperlipidemia

== ENCOUNTER → 2020-06-12 | Outpatient (CLI) | payer MEDICARE ==
[2020-06-12 09:03] LABS: BASO # 0.1 10^3/uL (0.0-0.2); BASO % 0.9 % (0.0-1.0); EOS # 0.3 10^3/uL (0.0-0.5); EOS % 3.5 % (0.0-3.0); HEMATOCRIT 41.6 % (36.0-47.0); HEMOGLOBIN 12.9 g/dl (12.0-15.5); LYMPH # 2.5 10^3/uL (1.5-5.0); LYMPH % 31.7 % (24.0-44.0); MEAN CORPUSCULAR VOLUME 90.4 fl (80.0-96.0); MONO # 0.9 10^3/uL (0.0-0.8); MONO % 11.4 % (0.0-5.0); NEUTROPHILS # 4.1 10^3/uL (1.5-8.5); NEUTROPHILS % 52.1 % (36.0-66.0); PLATELET COUNT, AUTOMATED 263 10^3/uL (150-450); WHITE BLOOD COUNT 7.8 10^3/uL (4.0-10.0)
[2020-06-12 09:22] LABS: ERYTHROCYTE SEDIMENTATION RATE 27 mm/hr (0-30)
[2020-06-12 09:44] LABS: ALBUMIN 4.2 GM/DL (3.2-5.2); ALT/SGPT 20 U/L (12-78); BILIRUBIN,TOTAL 0.3 MG/DL (0.2-1.0); BLOOD UREA NITROGEN 18 MG/DL (7-18); CALCIUM LEVEL 9.9 MG/DL (8.5-10.1); CARBON DIOXIDE LEVEL 30 MEQ/L (21-32); CHLORIDE LEVEL 107 MEQ/L (98-107); CREATININE FOR GFR 1.02 MG/DL (0.55-1.30); FREE T4 1.07 NG/DL (0.76-1.46); GLOMERULAR FILTRATION RATE > 60.0 (>51); GLUCOSE, FASTING 93 MG/DL (70-100); POTASSIUM SERUM 3.4 MEQ/L (3.5-5.1); RHEUMATOID FACTOR QUANT < 10.0 IU/ML (<15.0); SODIUM LEVEL 141 MEQ/L (136-145)
[2020-06-14 10:15] LABS: VITAMIN B12 LEVEL 786 PG/ML (247-911)
[2020-06-14 10:16] LABS: FOLATE 14.2 NG/ML (>5.4)
[2020-06-16 11:08] LABS: ANTINUCLEAR ANTIBODIES DIRECT Negative (Negative); VITAMIN B1 LEVEL WHOLE BLOOD 101.3 nmol/L (66.5-200.0); VITAMIN B6,PYRIDOXAL PHOSPHATE 4.9 ug/L (2.0-32.8); VITAMIN E(ALPHA TOCOPHEROL) 10.4 mg/L (7.0-25.1); VITAMIN E(GAMMA TOCOPHEROL) 2.3 mg/L (0.5-5.5)
== END ==
LOC: M LAB 08:20
PROVIDERS: ATTEND Psychiatry & Neurology Neurology
DX: G31.84 Mild cognitive impairment of uncertain or unknown etiology (principal); E07.9 Disorder of thyroid, unspecified; R20.0 Anesthesia of skin; Z48.22 Encounter for aftercare following kidney transplant; Z94.0 Kidney transplant status; E11.22 Type 2 diabetes mellitus with diabetic chronic kidney disease; D63.1 Anemia in chronic kidney disease; M10.9 Gout, unspecified; E83.42 Hypomagnesemia; N25.81 Secondary hyperparathyroidism of renal origin; E78.2 Mixed hyperlipidemia

== ENCOUNTER 2020-10-12 22:27 | Emergency (ER) | payer MEDICARE ==
[~2020-10-12] VITALS: Ht 167.6 cm; Wt 95.5 kg
[2020-10-12 22:34] VITALS: BP 167/98
[2020-10-12] MEDS ORDERED: ASPIRIN 81 MG CHEW TABLET PO ONE (23:05)
[2020-10-12] MEDS ORDERED: methylPREDNISolone 125MG 2ML VIAL IV ONE (23:05)
[2020-10-12] MEDS: COMBIVENT RESPIMAT 100-20MCG INHALER 4GM INH SCH ×3 (23:26→23:57)
--- NOTE | 2020-10-12 23:58 | REPVR ---
PROCEDURE INFORMATION: Exam: XR Chest Exam date and time: 10/12/2020 11:22 PM Age: 55 years old Clinical indication: Chest pain; Type not specified TECHNIQUE: Imaging protocol: XR of the chest Views: 1 view. COMPARISON: CT Chest without contrast 10/15/2016 10:48 AM FINDINGS: Lungs: Unremarkable. No consolidation. Pleural spaces: Unremarkable. No pleural effusion. No pneumothorax. Heart/Mediastinum: Unremarkable. No cardiomegaly. Bones/joints: Unremarkable. IMPRESSION: No acute findings. Electronically signed by: Ahsan Soto On 10/12/2020 23:59:16 PM
[2020-10-13 00:16] LABS: BASO # 0.1 10^3/uL (0.0-0.2); BASO % 0.7 % (0.0-1.0); EOS # 0.2 10^3/uL (0.0-0.5); EOS % 2.4 % (0.0-3.0); HEMATOCRIT 39.6 % (36.0-47.0); HEMOGLOBIN 12.2 g/dl (12.0-15.5); LYMPH # 2.5 10^3/uL (1.5-5.0); LYMPH % 27.2 % (24.0-44.0); MEAN CORPUSCULAR HEMOGLOBIN 28.9 pg (27.0-33.0); MEAN CORPUSCULAR HGB CONC 30.8 g/dl (32.0-36.5); MEAN CORPUSCULAR VOLUME 93.8 fl (80.0-96.0); MONO # 0.9 10^3/uL (0.0-0.8); MONO % 9.5 % (2.0-8.0); NEUTROPHILS # 5.4 10^3/uL (1.5-8.5); NEUTROPHILS % 59.5 % (36.0-66.0); PLATELET COUNT, AUTOMATED 226 10^3/uL (150-450); RED BLOOD COUNT 4.22 10^6/uL (4.00-5.40); WHITE BLOOD COUNT 9.1 10^3/uL (4.0-10.0)
[2020-10-13] MEDS ORDERED: ASPIRIN 81 MG CHEW TABLET As Ordered ONE (00:31)
[2020-10-13 02:20] LABS: BLOOD UREA NITROGEN 21 MG/DL (7-18); CALCIUM LEVEL 9.5 MG/DL (8.5-10.1); CARBON DIOXIDE LEVEL 26 MEQ/L (21-32); CHLORIDE LEVEL 109 MEQ/L (98-107); CK-MB VALUE MASS < 1.0 NG/ML (<3.6); CPK CREATINE PHOSPHOKINASE 100 U/L (26-192); CREATININE FOR GFR 0.97 MG/DL (0.55-1.30); GLOMERULAR FILTRATION RATE > 60.0 (>51); GLUCOSE, FASTING 115 MG/DL (70-100); NT-PRO BNP 66 PG/ML (<125); SODIUM LEVEL 145 MEQ/L (136-145); TROPONIN I 0.02 NG/ML (< 0.10)
--- NOTE | 2020-10-13 13:18 | ECGEPIP ---
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
== END 2020-10-13 07:39 | disposition home or self-care (01) ==
LOC: M ED 22:27
DX: J45.901 Unspecified asthma with (acute) exacerbation (principal); I10 Essential (primary) hypertension; K21.9 Gastro-esophageal reflux disease without esophagitis; Z94.0 Kidney transplant status; Z48.22 Encounter for aftercare following kidney transplant; Z88.5 Allergy status to narcotic agent; Z88.8 Allergy status to other drugs, medicaments and biological substances; Z79.899 Other long term (current) drug therapy; Z79.84 Long term (current) use of oral hypoglycemic drugs
CPT/HCPCS: 71045; 80048; 80197; 82550; 82553; 83880; 84484; 85025; 93005; 94640; 96374; 99284; J2930

== ENCOUNTER → 2020-10-12 | Outpatient (REF) | payer MEDICARE ==
[~2020-10-12] MED LIST changes: -MAG400TA OR; +MAGN400T35 OR
== END ==
LOC: M LAB REF 17:00
PROVIDERS: ATTEND Internal Medicine Nephrology
DX: Z94.0 Kidney transplant status (principal); Z48.22 Encounter for aftercare following kidney transplant

== ENCOUNTER → 2020-11-02 | Outpatient (CLI) | payer MEDICARE ==
[2020-11-02 10:09] LABS: HEMOGLOBIN A1c 6.3 %
[2020-11-02 11:03] LABS: CHOLESTEROL RISK RATIO 2.473 (<5)
== END ==
LOC: M LAB 08:02
PROVIDERS: ATTEND Family Medicine
DX: E11.9 Type 2 diabetes mellitus without complications (principal)

== ENCOUNTER → 2020-11-02 | Outpatient (CLI) | payer MEDICARE ==
[2020-11-02 10:24] LABS: FREE THYROXINE INDEX 3.2 % (1.3-4.8); THYROID STIMULATING HORMONE 1.8 uIU/ML (0.358-3.740)
[2020-11-02 10:26] LABS: TOTAL T3 111.5 NG/DL (60.0-181.0)
[2020-11-03 13:08] LABS: SSA SJOGRENS A 0.7 AI (0.0-0.9); SSB SJOGRENS B <0.2 AI (0.0-0.9)
== END ==
LOC: M LAB 08:06
PROVIDERS: ATTEND Ophthalmology
DX: H05.243 Constant exophthalmos, bilateral (principal); E78.00 Pure hypercholesterolemia, unspecified; E11.9 Type 2 diabetes mellitus without complications

== ENCOUNTER → 2021-01-06 | Outpatient (CLI) | payer MEDICARE ==
[2021-01-06 08:07] LABS: BASO % 0.5 % (0.0-1.0); EOS # 0.3 10^3/uL (0.0-0.5); EOS % 3.7 % (0.0-3.0); HEMATOCRIT 41.8 % (36.0-47.0); HEMOGLOBIN 12.9 g/dl (12.0-15.5); LYMPH # 2.6 10^3/uL (1.5-5.0); LYMPH % 32.4 % (24.0-44.0); MEAN CORPUSCULAR HEMOGLOBIN 28.6 pg (27.0-33.0); MEAN CORPUSCULAR HGB CONC 30.9 g/dl (32.0-36.5); MEAN CORPUSCULAR VOLUME 92.7 fl (80.0-96.0); MONO # 0.9 10^3/uL (0.0-0.8); MONO % 11.5 % (2.0-8.0); NEUTROPHILS # 4.1 10^3/uL (1.5-8.5); NEUTROPHILS % 51.5 % (36.0-66.0); PLATELET COUNT, AUTOMATED 252 10^3/uL (150-450); RED BLOOD COUNT 4.51 10^6/uL (4.00-5.40)
[2021-01-06 08:45] LABS: ALBUMIN 3.9 GM/DL (3.2-5.2); ALT/SGPT 26 U/L (12-78); BILIRUBIN,TOTAL 0.3 MG/DL (0.2-1.0); BLOOD UREA NITROGEN 18 MG/DL (7-18); CARBON DIOXIDE LEVEL 30 MEQ/L (21-32); CHLORIDE LEVEL 107 MEQ/L (98-107); CHOLESTEROL LEVEL 187 MG/DL (<200); CREATININE FOR GFR 0.92 MG/DL (0.55-1.30); CREATININE, URINE 51.3 MG/DL; GLOMERULAR FILTRATION RATE > 60.0 (>51); GLUCOSE, FASTING 114 MG/DL (70-100); HDL CHOLESTEROL 57 MG/DL (>40); LDL CHOLESTEROL 71 MG/DL (<100); MALB URINE SIEMENS 55.2 MG/L; MAU/CREAT RATIO 107.6 MCG/MG (0.0-30.0); NON-HDL-C 130 MG/DL; POTASSIUM SERUM 3.7 MEQ/L (3.5-5.1); SODIUM LEVEL 144 MEQ/L (136-145); TOTAL PROTEIN 7.9 GM/DL (6.4-8.2); TRIGLYCERIDES LEVEL 297 MG/DL (<150)
[2021-01-06 11:30] LABS: HEMOGLOBIN A1c 6.7 %
== END ==
LOC: M LAB 06:33
PROVIDERS: ATTEND Family Medicine
DX: I12.9 Hypertensive chronic kidney disease with stage 1 through stage 4 chronic kidney disease, or unspecified chronic kidney disease (principal)

== ENCOUNTER → 2021-01-11 | Outpatient (CLI) | payer MEDICARE ==
--- NOTE | 2021-01-12 08:05 | ECGEPIP ---
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
== END ==
LOC: M EKG 09:13
PROVIDERS: ATTEND Family Medicine
DX: Z01.818 Encounter for other preprocedural examination (principal)

== ENCOUNTER → 2021-01-11 | Outpatient (CLI) | payer MEDICARE | LOC: M LAB 09:09 | PROVIDERS: ATTEND Internal Medicine Nephrology | DX: Z48.298 Encounter for aftercare following other organ transplant (principal) ==

== ENCOUNTER → 2021-01-13 | Outpatient (REF) | payer MEDICARE | LOC: M LAB REF 16:50 | PROVIDERS: ATTEND Internal Medicine Nephrology | DX: Z94.0 Kidney transplant status (principal); Z48.22 Encounter for aftercare following kidney transplant; E83.42 Hypomagnesemia; M10.9 Gout, unspecified ==

== ENCOUNTER → 2021-02-28 | Outpatient (CLI) | payer MEDICARE ==
[2021-02-28 07:09] LABS: BASO # 0.1 10^3/uL (0.0-0.2); BASO % 0.6 % (0.0-1.0); EOS # 0.3 10^3/uL (0.0-0.5); EOS % 3.7 % (0.0-3.0); HEMATOCRIT 39.6 % (36.0-47.0); HEMOGLOBIN 12.6 g/dl (12.0-15.5); LYMPH # 2.5 10^3/uL (1.5-5.0); LYMPH % 31.9 % (24.0-44.0); MEAN CORPUSCULAR HGB CONC 31.8 g/dl (32.0-36.5); MONO # 0.9 10^3/uL (0.0-0.8); MONO % 10.9 % (2.0-8.0); NEUTROPHILS # 4.1 10^3/uL (1.5-8.5); NEUTROPHILS % 52.4 % (36.0-66.0); PLATELET COUNT, AUTOMATED 223 10^3/uL (150-450); RED BLOOD COUNT 4.35 10^6/uL (4.00-5.40); WHITE BLOOD COUNT 7.8 10^3/uL (4.0-10.0)
[2021-02-28 07:34] LABS: ALBUMIN 3.7 GM/DL (3.2-5.2); ALT/SGPT 25 U/L (12-78); BILIRUBIN,TOTAL 0.3 MG/DL (0.2-1.0); BLOOD UREA NITROGEN 15 MG/DL (7-18); CALCIUM LEVEL 9.4 MG/DL (8.5-10.1); CARBON DIOXIDE LEVEL 32 MEQ/L (21-32); CHLORIDE LEVEL 108 MEQ/L (98-107); CHOLESTEROL LEVEL 152 MG/DL (<200); CHOLESTEROL RISK RATIO 2.533 (<5); CREATININE FOR GFR 0.85 MG/DL (0.55-1.30); GLOMERULAR FILTRATION RATE > 60.0 (>51); GLUCOSE, FASTING 119 MG/DL (70-100); HDL CHOLESTEROL 60 MG/DL (>40); LDL CHOLESTEROL 55 MG/DL (<100); NON-HDL-C 92 MG/DL; POTASSIUM SERUM 3.3 MEQ/L (3.5-5.1); SODIUM LEVEL 145 MEQ/L (136-145); TOTAL PROTEIN 7.3 GM/DL (6.4-8.2); TRIGLYCERIDES LEVEL 184 MG/DL (<150)
[2021-02-28 11:20] LABS: MALB URINE SIEMENS 29.4 MG/L; MAU/CREAT RATIO 17.3 MCG/MG (0.0-30.0)
== END ==
LOC: M LAB 06:37
PROVIDERS: ATTEND Family Medicine
DX: I12.9 Hypertensive chronic kidney disease with stage 1 through stage 4 chronic kidney disease, or unspecified chronic kidney disease (principal)

== ENCOUNTER → 2021-04-18 | Outpatient (REF) | payer MEDICARE | LOC: M LAB REF 13:07 | PROVIDERS: ATTEND Internal Medicine Nephrology | DX: Z94.0 Kidney transplant status (principal); Z48.22 Encounter for aftercare following kidney transplant ==

== ENCOUNTER → 2021-06-06 | Outpatient (CLI) | payer MEDICARE ==
[~2021-06-06] MED LIST changes: +ACET-897 PO; +CEFD300CAP PO; +D31000TA2 PO; +DIFL150T PO; +FLUO1SOL TOP; -MAGN400T35 OR; +MAGN400T35 PO; -METF500T13 OR; +METF500T13 PO; +METO10TA2 PO; -METO50TA7 OR; +METO50TA7 PO; +METR-265 PO; -MYCO250C OR; +MYCO250C PO; +POTA10TA17 PO; -PRED5TA OR; +PRED5TA PO; +SEMA1PEN2 SQ; +SENN1TAB41 PO; -TACR1CAP3 OR; +TACR1CAP3 PO; +VALT500T PO
[2021-06-06 07:40] LABS: BASO % 0.6 % (0.0-1.0); EOS # 0.3 10^3/uL (0.0-0.5); HEMATOCRIT 40.3 % (36.0-47.0); HEMOGLOBIN 12.4 g/dl (12.0-15.5); LYMPH # 2.3 10^3/uL (1.5-5.0); LYMPH % 33.1 % (24.0-44.0); MEAN CORPUSCULAR HEMOGLOBIN 28.6 pg (27.0-33.0); MEAN CORPUSCULAR HGB CONC 30.8 g/dl (32.0-36.5); MEAN CORPUSCULAR VOLUME 93.1 fl (80.0-96.0); MONO # 0.7 10^3/uL (0.0-0.8); MONO % 9.7 % (2.0-8.0); NEUTROPHILS # 3.7 10^3/uL (1.5-8.5); NEUTROPHILS % 52.2 % (36.0-66.0); PLATELET COUNT, AUTOMATED 237 10^3/uL (150-450); RED BLOOD COUNT 4.33 10^6/uL (4.00-5.40)
[2021-06-06 08:01] LABS: ALBUMIN 3.6 GM/DL (3.2-5.2); ALT/SGPT 26 U/L (12-78); BILIRUBIN,TOTAL 0.3 MG/DL (0.2-1.0); BLOOD UREA NITROGEN 12 MG/DL (7-18); CALCIUM LEVEL 9.6 MG/DL (8.5-10.1); CARBON DIOXIDE LEVEL 31 MEQ/L (21-32); CHLORIDE LEVEL 110 MEQ/L (98-107); CHOLESTEROL LEVEL 143 MG/DL (<200); CHOLESTEROL RISK RATIO 2.465 (<5); CREATININE FOR GFR 0.85 MG/DL (0.55-1.30); GLOMERULAR FILTRATION RATE > 60.0 (>51); GLUCOSE, FASTING 118 MG/DL (70-100); HDL CHOLESTEROL 58 MG/DL (>40); LDL CHOLESTEROL 59 MG/DL (<100); NON-HDL-C 85 MG/DL; POTASSIUM SERUM 3.9 MEQ/L (3.5-5.1); SODIUM LEVEL 145 MEQ/L (136-145); TOTAL PROTEIN 7.3 GM/DL (6.4-8.2); TRIGLYCERIDES LEVEL 129 MG/DL (<150)
[2021-06-06 08:15] LABS: HEMOGLOBIN A1c 6.7 %
== END ==
LOC: M LAB 07:09
PROVIDERS: ATTEND Family Medicine
DX: E79.2 Myoadenylate deaminase deficiency (principal); E11.22 Type 2 diabetes mellitus with diabetic chronic kidney disease

== ENCOUNTER → 2021-08-03 | Outpatient (REF) | payer MEDICARE ==
[~2021-08-03] MED LIST changes: -ACET-897 PO; -CEFD300CAP PO; -D31000TA2 PO; -DIFL150T PO; -FLUO1SOL TOP; +MAGN400T35 OR; -MAGN400T35 PO; +METF500T13 OR; -METF500T13 PO; -METO10TA2 PO; +METO50TA7 OR; -METO50TA7 PO; -METR-265 PO; +MYCO250C OR; -MYCO250C PO; -POTA10TA17 PO; +PRED5TA OR; -PRED5TA PO; -SEMA1PEN2 SQ; -SENN1TAB41 PO; +TACR1CAP3 OR; -TACR1CAP3 PO; -VALT500T PO
[2021-08-03 14:24] LABS: FREE T4 1.01 NG/DL (0.76-1.46); THYROID STIMULATING HORMONE 2.4 uIU/ML (0.358-3.740)
== END ==
LOC: M LAB REF 12:53
PROVIDERS: ATTEND Internal Medicine Nephrology
DX: Z94.0 Kidney transplant status (principal); Z48.22 Encounter for aftercare following kidney transplant; E03.9 Hypothyroidism, unspecified

== ENCOUNTER 2021-08-22 13:58 | Inpatient (IN) | payer MEDICARE ==
[~2021-08-22] VITALS: Ht 167.6 cm; Wt 97.4 kg
[~2021-08-22 13:58] MED LIST changes: -MAGN400T35 OR; +MAGN400T35 PO; -METF500T13 OR; +METF500T13 PO; -METO50TA7 OR; +METO50TA7 PO; -MYCO250C OR; +MYCO250C PO; -PRED5TA OR; +PRED5TA PO; -TACR1CAP3 OR; +TACR1CAP3 PO
[2021-08-22] MEDS ORDERED: ACETAMINOPHEN 325 MG TAB PO ONE (14:25)
[2021-08-22] MEDS ORDERED: ONDANSETRON 4MG/2ML VIAL IV ONE (14:25)
[2021-08-22] MEDS ORDERED: NS 1,000 ML IV ONE (15:05)
[2021-08-22 15:38] LABS: BASO % 0.1 % (0.0-1.0); EOS # 0.1 10^3/uL (0.0-0.5); EOS % 0.9 % (0.0-3.0); LYMPH # 1.1 10^3/uL (1.5-5.0); LYMPH % 10.4 % (24.0-44.0); MEAN CORPUSCULAR HEMOGLOBIN 29.1 pg (27.0-33.0); MEAN CORPUSCULAR HGB CONC 31.7 g/dl (32.0-36.5); MEAN CORPUSCULAR VOLUME 91.9 fl (80.0-96.0); MONO # 1.1 10^3/uL (0.0-0.8); MONO % 10.3 % (2.0-8.0); NEUTROPHILS # 8.2 10^3/uL (1.5-8.5); NEUTROPHILS % 77.8 % (36.0-66.0); PLATELET COUNT, AUTOMATED 239 10^3/uL (150-450); RED BLOOD COUNT 4.46 10^6/uL (4.00-5.40); WHITE BLOOD COUNT 10.5 10^3/uL (4.0-10.0)
[2021-08-22 16:07] LABS: ALBUMIN 3.8 GM/DL (3.2-5.2); BILIRUBIN,DIRECT 0.1 MG/DL (0.0-0.2); BILIRUBIN,TOTAL 0.4 MG/DL (0.2-1.0); CALCIUM LEVEL 9.7 MG/DL (8.5-10.1); CREATININE FOR GFR 1.15 MG/DL (0.55-1.30); POTASSIUM SERUM 3.9 MEQ/L (3.5-5.1); TOTAL PROTEIN 7.2 GM/DL (6.4-8.2)
[2021-08-22] MEDS ORDERED: fentaNYL 100 MCG/2 ML INJECTION IV ONE (17:30)
[2021-08-22] MEDS ORDERED: cefTRIAXone SOD 2 GM in D5W MINI-BAG PLUS 50 ML IV ONE (19:50)
[2021-08-22] MEDS ORDERED: ONDANSETRON 4 MG ORAL DISINTEGRATING TAB PO PRN (20:40)
[2021-08-22] MEDS ORDERED: DEXTROSE 50% 50 ML SYRINGE IV PRN (20:40)
[2021-08-22] MEDS ORDERED: GLUCOSE 4GM CHEW TABLET PO PRN (20:40)
[2021-08-22] MEDS ORDERED: ACETAMINOPHEN TAB 650MG DOSE (2X325MG) PO PRN (20:40)
[2021-08-22] MEDS ORDERED: GLUCAGON INJ 1MG VIAL SC PRN (20:40)
[2021-08-22] MEDS: HumaLOG INSULIN (NovoLOG) PER UNIT SC SCH (21:00)
[2021-08-22] MEDS: metroNIDAZOLE 500 MG in IV 1 EA IV SCH (21:37)
[2021-08-22 21:50] LABS: HEMATOCRIT 37.5 % (36.0-47.0); HEMOGLOBIN 11.8 g/dl (12.0-15.5); MEAN CORPUSCULAR HEMOGLOBIN 29.1 pg (27.0-33.0); MEAN CORPUSCULAR HGB CONC 31.5 g/dl (32.0-36.5); MEAN CORPUSCULAR VOLUME 92.6 fl (80.0-96.0); PLATELET COUNT, AUTOMATED 218 10^3/uL (150-450); RED BLOOD COUNT 4.05 10^6/uL (4.00-5.40); WHITE BLOOD COUNT 11.2 10^3/uL (4.0-10.0)
[2021-08-22] MEDS ORDERED: SENN1TAB41 PO (22:29)
[2021-08-22] MEDS ORDERED: ACET-897 PO (22:29)
[2021-08-22] MEDS ORDERED: VALT500T PO (22:37)
[2021-08-22] MEDS ORDERED: TACR1CAP3 PO (22:37)
[2021-08-22] MEDS ORDERED: SEMA1PEN2 SQ (22:37)
[2021-08-22] MEDS ORDERED: POTA10TA17 PO (22:37)
[2021-08-22] MEDS ORDERED: FLUO1SOL TOP (22:37)
[2021-08-22] MEDS ORDERED: D31000TA2 PO (22:37)
[2021-08-22] MEDS ORDERED: METO10TA2 PO (22:37)
[2021-08-22] MEDS ORDERED: HOME MED LIST COMPLETE! XX SCH (22:40)
[2021-08-23 01:03] LABS: HEMATOCRIT 37.8 % (36.0-47.0); HEMOGLOBIN 12.1 g/dl (12.0-15.5); MEAN CORPUSCULAR HEMOGLOBIN 29.1 pg (27.0-33.0); MEAN CORPUSCULAR VOLUME 90.9 fl (80.0-96.0); PLATELET COUNT, AUTOMATED 207 10^3/uL (150-450); RED BLOOD COUNT 4.16 10^6/uL (4.00-5.40); WHITE BLOOD COUNT 10.3 10^3/uL (4.0-10.0)
[2021-08-23] MEDS ORDERED: METOCLOPRAMIDE 10 MG TAB PO PRN (02:00)
[2021-08-23] MEDS: metroNIDAZOLE 500 MG in IV 1 EA IV SCH ×3 (05:53→23:36)
[2021-08-23] MEDS: HumaLOG INSULIN (NovoLOG) PER UNIT SC SCH ×4 (07:30→20:49)
[2021-08-23 07:31] LABS: HEMATOCRIT 35.4 % (36.0-47.0); HEMOGLOBIN 11.1 g/dl (12.0-15.5); MEAN CORPUSCULAR HEMOGLOBIN 29.3 pg (27.0-33.0); MEAN CORPUSCULAR HGB CONC 31.4 g/dl (32.0-36.5); MEAN CORPUSCULAR VOLUME 93.4 fl (80.0-96.0); PLATELET COUNT, AUTOMATED 196 10^3/uL (150-450); RED BLOOD COUNT 3.79 10^6/uL (4.00-5.40); WHITE BLOOD COUNT 8.7 10^3/uL (4.0-10.0)
[2021-08-23 07:51] LABS: BLOOD UREA NITROGEN 10 MG/DL (7-18); CALCIUM LEVEL 8.2 MG/DL (8.5-10.1); CARBON DIOXIDE LEVEL 21 MEQ/L (21-32); CHLORIDE LEVEL 113 MEQ/L (98-107); CREATININE FOR GFR 0.87 MG/DL (0.55-1.30); GLOMERULAR FILTRATION RATE > 60.0 (>51); GLUCOSE, FASTING 133 MG/DL (70-100); POTASSIUM SERUM 3.2 MEQ/L (3.5-5.1); SODIUM LEVEL 142 MEQ/L (136-145)
[2021-08-23] MEDS: HEPARIN SOD (PORCINE) 5000UNITS/ML 1ML VIAL/SYRINGE SC SCH ×2 (09:00→21:00)
[2021-08-23] MEDS: MAGNESIUM OXIDE 400MG TAB (MAG-OX) PO SCH ×2 (09:42→22:00)
[2021-08-23] MEDS: predniSONE 5 MG TAB PO SCH (09:43)
[2021-08-23] MEDS: PANTOPRAZOLE 40MG TAB (PROTONIX) PO SCH ×2 (09:43→22:01)
[2021-08-23] MEDS: MYCOPHENOLATE MOFETIL 250 MG CAP (J7517) PO SCH ×2 (09:43→22:01)
[2021-08-23] MEDS: TACROLIMUS 1 MG CAP (J7507) PO SCH (09:44)
[2021-08-23] MEDS: valACYclovir HCL 500 MG TAB PO SCH (09:48)
[2021-08-23 09:53] VITALS: BP 118/59
[2021-08-23 16:50] VITALS: BP 125/78
[2021-08-23] MEDS ORDERED: cefTRIAXone SOD 1 GM in D5W MINI-BAG PLUS 50 ML IV SCH (20:00)
[2021-08-23] MEDS ORDERED: TACROLIMUS 1 MG CAP (J7507) PO SCH (21:00)
[2021-08-23 22:00] VITALS: BP 102/51
[2021-08-24 02:00] VITALS: BP 125/78
[2021-08-24] MEDS: metroNIDAZOLE 500 MG in IV 1 EA IV SCH (05:14)
[2021-08-24 06:00] VITALS: BP 125/78
[2021-08-24] MEDS: HumaLOG INSULIN (NovoLOG) PER UNIT SC SCH (07:30)
[2021-08-24] MEDS: HEPARIN SOD (PORCINE) 5000UNITS/ML 1ML VIAL/SYRINGE SC SCH (08:54)
[2021-08-24] MEDS: PANTOPRAZOLE 40MG TAB (PROTONIX) PO SCH (08:55)
[2021-08-24] MEDS: valACYclovir HCL 500 MG TAB PO SCH (08:55)
[2021-08-24] MEDS: MAGNESIUM OXIDE 400MG TAB (MAG-OX) PO SCH (08:55)
[2021-08-24] MEDS: predniSONE 5 MG TAB PO SCH (08:55)
[2021-08-24] MEDS: TACROLIMUS 1 MG CAP (J7507) PO SCH (08:56)
[2021-08-24] MEDS: MYCOPHENOLATE MOFETIL 250 MG CAP (J7517) PO SCH (08:56)
[2021-08-24] MEDS ORDERED: METR-265 PO (09:02)
[2021-08-24] MEDS ORDERED: CEFD300CAP PO (09:02)
[2021-08-24] MEDS ORDERED: DIFL150T PO (11:10)
[2021-08-24] MEDS ORDERED: metroNIDAZOLE (FLAGYL) 500MG TABLET PO SCH (14:00)
[2021-08-24] MEDS ORDERED: CEFDINIR 300 MG CAP (OMNICEF) PO SCH (21:00)
== END 2021-08-24 10:55 | disposition home or self-care (01) | DRG 392 ==
LOC: EDBD 13:58 → M ED 13:58 → M ED INP 20:12 → M MSPAV 08-23 16:45
PROVIDERS: ADMIT Family Medicine; ATTEND Family Medicine
DX: A09 Infectious gastroenteritis and colitis, unspecified (principal); N25.81 Secondary hyperparathyroidism of renal origin; K62.5 Hemorrhage of anus and rectum; Z94.0 Kidney transplant status; B02.29 Other postherpetic nervous system involvement; I10 Essential (primary) hypertension; E11.9 Type 2 diabetes mellitus without complications; E78.5 Hyperlipidemia, unspecified; J45.909 Unspecified asthma, uncomplicated; K21.9 Gastro-esophageal reflux disease without esophagitis; Z98.41 Cataract extraction status, right eye; Z98.42 Cataract extraction status, left eye; Z79.899 Other long term (current) drug therapy; Z88.5 Allergy status to narcotic agent; Z88.8 Allergy status to other drugs, medicaments and biological substances

== ENCOUNTER → 2021-09-01 | Outpatient (REF) | payer MEDICARE ==
[~2021-09-01] MED LIST changes: +ACET-897 PO; +CEFD300CAP PO; +D31000TA2 PO; +DIFL150T PO; +FLUO1SOL TOP; +METO10TA2 PO; +METR-265 PO; +POTA10TA17 PO; +SEMA1PEN2 SQ; +SENN1TAB41 PO; +VALT500T PO
== END ==
LOC: M LAB REF 16:54
PROVIDERS: ATTEND Physician Assistant
DX: K52.0 Gastroenteritis and colitis due to radiation (principal)

== ENCOUNTER → 2021-09-09 | Outpatient (CLI) | payer MEDICARE ==
[~2021-09-09] MED LIST changes: -D31000TA2 PO; +VITA100093 PO
[2021-09-09 08:15] LABS: BASO # 0.1 10^3/uL (0.0-0.2); BASO % 0.9 % (0.0-1.0); EOS # 0.2 10^3/uL (0.0-0.5); EOS % 3.7 % (0.0-3.0); HEMATOCRIT 41.6 % (36.0-47.0); LYMPH % 30.3 % (24.0-44.0); MEAN CORPUSCULAR HEMOGLOBIN 28.4 pg (27.0-33.0); MEAN CORPUSCULAR HGB CONC 31.3 g/dl (32.0-36.5); MONO # 0.8 10^3/uL (0.0-0.8); NEUTROPHILS # 3.4 10^3/uL (1.5-8.5); NEUTROPHILS % 52.9 % (36.0-66.0); PLATELET COUNT, AUTOMATED 245 10^3/uL (150-450); RED BLOOD COUNT 4.57 10^6/uL (4.00-5.40); WHITE BLOOD COUNT 6.5 10^3/uL (4.0-10.0)
[2021-09-09 08:23] LABS: ALBUMIN 4.1 GM/DL (3.2-5.2); ALT/SGPT 32 U/L (12-78); BILIRUBIN,TOTAL 0.4 MG/DL (0.2-1.0); BLOOD UREA NITROGEN 14 MG/DL (7-18); CARBON DIOXIDE LEVEL 32 MEQ/L (21-32); CHLORIDE LEVEL 109 MEQ/L (98-107); CREATININE FOR GFR 0.93 MG/DL (0.55-1.30); GLOMERULAR FILTRATION RATE > 60.0 (>51); GLUCOSE, FASTING 119 MG/DL (70-100); POTASSIUM SERUM 3.4 MEQ/L (3.5-5.1); SODIUM LEVEL 143 MEQ/L (136-145); TOTAL PROTEIN 7.9 GM/DL (6.4-8.2)
[2021-09-09 08:31] LABS: MALB URINE SIEMENS 72.9 MG/L; MAU/CREAT RATIO 62.8 MCG/MG (0.0-30.0)
[2021-09-09 09:51] LABS: HEMOGLOBIN A1c 6.7 %
== END ==
LOC: M LAB 07:20
PROVIDERS: ATTEND Physician Assistant
DX: E11.22 Type 2 diabetes mellitus with diabetic chronic kidney disease (principal)

== ENCOUNTER → 2021-09-21 | Outpatient (CLI) | payer SELFPAY | LOC: M LABSMTC 09:28 | PROVIDERS: ATTEND Pediatrics | DX: Z11.52 Encounter for screening for COVID-19 (principal) ==

== ENCOUNTER → 2021-12-07 | Outpatient (REF) | payer MEDICARE ==
[2021-12-07 18:19] LABS: FREE T4 1.03 NG/DL (0.76-1.46); THYROID STIMULATING HORMONE 3.09 uIU/ML (0.358-3.740)
== END ==
LOC: M LAB REF 17:14
PROVIDERS: ATTEND Internal Medicine Nephrology
DX: Z94.0 Kidney transplant status (principal); Z48.22 Encounter for aftercare following kidney transplant; E03.9 Hypothyroidism, unspecified

== ENCOUNTER 2021-12-14 09:03 | Inpatient (IN) | payer MEDICARE ==
[~2021-12-14] VITALS: Ht 167.6 cm; Wt 95.5 kg
[2021-12-14] MEDS ORDERED: ACETAMINOPHEN 325 MG TAB PO ONE (09:55)
[2021-12-14] MEDS ORDERED: ONDANSETRON 4MG/2ML VIAL IV ONE (09:55)
[2021-12-14 10:17] LABS: BASO % 0.4 % (0.0-1.0); EOS # 0.1 10^3/uL (0.0-0.5); EOS % 1.3 % (0.0-3.0); HEMATOCRIT 39.2 % (36.0-47.0); HEMOGLOBIN 12.4 g/dl (12.0-15.5); LYMPH # 0.8 10^3/uL (1.5-5.0); LYMPH % 7.9 % (24.0-44.0); MEAN CORPUSCULAR HEMOGLOBIN 28.9 pg (27.0-33.0); MEAN CORPUSCULAR HGB CONC 31.6 g/dl (32.0-36.5); MEAN CORPUSCULAR VOLUME 91.4 fl (80.0-96.0); MONO % 16.6 % (2.0-8.0); NEUTROPHILS # 7.1 10^3/uL (1.5-8.5); NEUTROPHILS % 73.2 % (36.0-66.0); PLATELET COUNT, AUTOMATED 242 10^3/uL (150-450); RED BLOOD COUNT 4.29 10^6/uL (4.00-5.40); WHITE BLOOD COUNT 9.7 10^3/uL (4.0-10.0)
[2021-12-14 10:18] LABS: MONO # 1.6 10^3/uL (0.0-0.8)
[2021-12-14 10:41] LABS: BLOOD UREA NITROGEN 13 MG/DL (7-18); CALCIUM LEVEL 10.2 MG/DL (8.5-10.1); CARBON DIOXIDE LEVEL 29 MEQ/L (21-32); CHLORIDE LEVEL 107 MEQ/L (98-107); CREATININE FOR GFR 1.05 MG/DL (0.55-1.30); GLOMERULAR FILTRATION RATE 57.7 (>51); GLUCOSE, FASTING 129 MG/DL (70-100); POTASSIUM SERUM 3.6 MEQ/L (3.5-5.1); SODIUM LEVEL 141 MEQ/L (136-145)
[2021-12-14 12:31] LABS: ALBUMIN 3.9 GM/DL (3.2-5.2); ALT/SGPT 33 U/L (12-78); BILIRUBIN,DIRECT 0.1 MG/DL (0.0-0.2); BILIRUBIN,TOTAL 0.4 MG/DL (0.2-1.0); TOTAL PROTEIN 8.5 GM/DL (6.4-8.2)
[2021-12-14] MEDS ORDERED: NS 1,000 ML IV ONE (12:55)
[2021-12-14] MEDS ORDERED: ACETAMINOPHEN 500 MG TAB PO ONE (14:50)
[2021-12-14] MEDS ORDERED: DEXTROSE 50% 50 ML SYRINGE IV PRN (17:25)
[2021-12-14] MEDS ORDERED: GLUCAGON INJ 1MG VIAL SC PRN (17:25)
[2021-12-14] MEDS ORDERED: GLUCOSE 4GM CHEW TABLET PO PRN (17:25)
[2021-12-14] MEDS: INSULIN LISPRO (NovoLOG) PER UNIT SC SCH ×2 (17:30→21:00)
[2021-12-14] MEDS ORDERED: HOME MED LIST COMPLETE! XX SCH (17:55)
[2021-12-14] MEDS ORDERED: METOCLOPRAMIDE 10MG TAB PO PRN (18:05)
[2021-12-14] MEDS ORDERED: SENOKOT S TAB PO PRN (18:05)
[2021-12-14 21:00] VITALS: BP 131/75; O2SAT 97
[2021-12-14] MEDS: MAGNESIUM OXIDE 400MG TAB (MAG-OX) PO SCH (21:15)
[2021-12-14] MEDS: POTASSIUM CHLORIDE 10MEQ SR TABLET PO SCH (21:16)
[2021-12-14] MEDS: METOPROLOL TART 25 MG TABLET PO SCH (21:16)
[2021-12-14] MEDS: ACETAMINOPHEN 500 MG TAB PO PRN (21:17)
[2021-12-14] MEDS: LOSARTAN 25 MG TAB PO SCH (21:17)
[2021-12-14] MEDS: PANTOPRAZOLE 40MG TAB (PROTONIX) PO SCH (21:17)
[2021-12-14] MEDS ORDERED: REMDESIVIR 200 MG in NS 250 ML IV ONE (22:00)
[2021-12-14] MEDS: TACROLIMUS 1 MG CAP (J7507) PO SCH (23:08)
[2021-12-14] MEDS: MYCOPHENOLATE MOFETIL 250 MG CAP (J7517) PO SCH (23:09)
[2021-12-15] MEDS ORDERED: SODIUM CHLORIDE 0.9% INJ 10 ML SYR IV ONE
[2021-12-15 04:00] VITALS: BP 145/88; O2SAT 98
[2021-12-15] MEDS: ACETAMINOPHEN 500 MG TAB PO PRN ×3 (04:05→21:16)
[2021-12-15] MEDS: INSULIN LISPRO (NovoLOG) PER UNIT SC SCH ×4 (07:30→21:00)
[2021-12-15 07:35] LABS: BASO % 0.3 % (0.0-1.0); EOS % 0.2 % (0.0-3.0); HEMATOCRIT 44.3 % (36.0-47.0); LYMPH # 1.6 10^3/uL (1.5-5.0); LYMPH % 15.4 % (24.0-44.0); MEAN CORPUSCULAR HEMOGLOBIN 28.8 pg (27.0-33.0); MEAN CORPUSCULAR HGB CONC 31.6 g/dl (32.0-36.5); MEAN CORPUSCULAR VOLUME 91.2 fl (80.0-96.0); MONO % 17.2 % (2.0-8.0); NEUTROPHILS # 6.9 10^3/uL (1.5-8.5); NEUTROPHILS % 66.6 % (36.0-66.0); PLATELET COUNT, AUTOMATED 202 10^3/uL (150-450); RED BLOOD COUNT 4.86 10^6/uL (4.00-5.40); WHITE BLOOD COUNT 10.4 10^3/uL (4.0-10.0)
[2021-12-15 07:54] LABS: ALBUMIN 3.8 GM/DL (3.2-5.2); ALT/SGPT 34 U/L (12-78); BILIRUBIN,DIRECT 0.1 MG/DL (0.0-0.2); BILIRUBIN,TOTAL 0.3 MG/DL (0.2-1.0); BLOOD UREA NITROGEN 9 MG/DL (7-18); CALCIUM LEVEL 9.9 MG/DL (8.5-10.1); CARBON DIOXIDE LEVEL 22 MEQ/L (21-32); CHLORIDE LEVEL 107 MEQ/L (98-107); CREATININE FOR GFR 0.82 MG/DL (0.55-1.30); GLOMERULAR FILTRATION RATE > 60.0 (>51); GLUCOSE, FASTING 109 MG/DL (70-100); MAGNESIUM LEVEL 1.8 MG/DL (1.8-2.4); SODIUM LEVEL 141 MEQ/L (136-145); TOTAL PROTEIN 7.8 GM/DL (6.4-8.2)
[2021-12-15 08:00] VITALS: O2SAT 98
[2021-12-15 08:16] LABS: MONO # 1.8 10^3/uL (0.0-0.8)
[2021-12-15] MEDS: ENOXAPARIN 40MG/0.4ML SYRINGE (J1650 PER 10MG) SC SCH (09:00)
[2021-12-15] MEDS: ROSUVASTATIN 10 MG TAB (CRESTOR) PO SCH (09:00)
[2021-12-15] MEDS: POTASSIUM CHLORIDE 10MEQ SR TABLET PO SCH ×2 (09:00→21:16)
[2021-12-15] MEDS: valACYclovir HCL 500 MG TAB PO SCH (09:00)
[2021-12-15] MEDS: MAGNESIUM OXIDE 400MG TAB (MAG-OX) PO SCH ×2 (09:00→21:17)
[2021-12-15] MEDS: VITAMIN D 1,000 INTERNATIONAL UNITS TABLET PO SCH (09:00)
[2021-12-15] MEDS: CEPACOL LOZENGE PO PRN (10:42)
[2021-12-15 12:00] VITALS: BP 160/99; O2SAT 97
[2021-12-15] MEDS: PANTOPRAZOLE 40MG TAB (PROTONIX) PO SCH ×3 (12:53→21:16)
[2021-12-15] MEDS: LOSARTAN 25 MG TAB PO SCH ×3 (12:54→21:16)
[2021-12-15] MEDS: NIFEdipine 30 MG XL TAB PO SCH ×2 (12:54→13:14)
[2021-12-15] MEDS: TACROLIMUS 1 MG CAP (J7507) PO SCH ×3 (12:55→21:14)
[2021-12-15] MEDS: predniSONE 5 MG TAB PO SCH ×2 (12:55→13:14)
[2021-12-15] MEDS: MYCOPHENOLATE MOFETIL 250 MG CAP (J7517) PO SCH ×2 (12:55→21:12)
[2021-12-15] MEDS: METOPROLOL TART 25 MG TABLET PO SCH ×3 (12:55→21:15)
[2021-12-15 15:29] VITALS: O2SAT 98
[2021-12-15] MEDS: CHLORASEPTIC SPRAY MT PRN (18:00)
[2021-12-15] MEDS: ONDANSETRON 4MG/2ML VIAL IV PRN (18:26)
[2021-12-15 20:00] VITALS: O2SAT 94
[2021-12-15 20:30] VITALS: BP 132/81
[2021-12-15] MEDS ORDERED: KETOROLAC 30 MG/ML 1ML VIAL IV ONE (20:45)
[2021-12-15] MEDS: REMDESIVIR 100 MG in NS 250 ML IV SCH (21:03)
[2021-12-15] MEDS: SODIUM CHLORIDE 0.9% INJ 10 ML SYR IV SCH (22:45)
[2021-12-16 00:08] VITALS: O2SAT 99
[2021-12-16 04:26] VITALS: BP 139/85
[2021-12-16 04:27] VITALS: O2SAT 97
[2021-12-16 06:44] LABS: BASO % 0.4 % (0.0-1.0); EOS % 0.1 % (0.0-3.0); HEMATOCRIT 40.9 % (36.0-47.0); HEMOGLOBIN 13.1 g/dl (12.0-15.5); LYMPH # 2.2 10^3/uL (1.5-5.0); LYMPH % 20.3 % (24.0-44.0); MEAN CORPUSCULAR HEMOGLOBIN 29.4 pg (27.0-33.0); MEAN CORPUSCULAR VOLUME 91.9 fl (80.0-96.0); MONO % 16.9 % (2.0-8.0); NEUTROPHILS # 6.8 10^3/uL (1.5-8.5); NEUTROPHILS % 61.9 % (36.0-66.0); PLATELET COUNT, AUTOMATED 207 10^3/uL (150-450); RED BLOOD COUNT 4.45 10^6/uL (4.00-5.40)
[2021-12-16 06:55] LABS: INR 0.98; PROTHROMBIN TIME 13.4 SECONDS (12.7-14.5)
[2021-12-16 06:56] LABS: PARTIAL THROMBOPLASTIN TIME 40.5 SECONDS (25.9-37.0)
[2021-12-16 07:21] LABS: ALBUMIN 3.5 GM/DL (3.2-5.2); BILIRUBIN,DIRECT 0.2 MG/DL (0.0-0.2); BILIRUBIN,TOTAL 0.4 MG/DL (0.2-1.0); CALCIUM LEVEL 9.2 MG/DL (8.5-10.1); CREATININE FOR GFR 1.1 MG/DL (0.55-1.30); GLOMERULAR FILTRATION RATE 54.7 (>51); POTASSIUM SERUM 3.8 MEQ/L (3.5-5.1); TOTAL PROTEIN 7.3 GM/DL (6.4-8.2)
[2021-12-16 07:30] LABS: MONO # 1.9 10^3/uL (0.0-0.8)
[2021-12-16] MEDS: INSULIN LISPRO (NovoLOG) PER UNIT SC SCH ×4 (07:30→21:00)
[2021-12-16] MEDS: ONDANSETRON 4MG/2ML VIAL IV PRN (09:56)
[2021-12-16] MEDS: TACROLIMUS 1 MG CAP (J7507) PO SCH ×2 (09:59→21:00)
[2021-12-16] MEDS: MYCOPHENOLATE MOFETIL 250 MG CAP (J7517) PO SCH ×2 (09:59→21:00)
[2021-12-16] MEDS: predniSONE 5 MG TAB PO SCH (09:59)
[2021-12-16] MEDS: valACYclovir HCL 500 MG TAB PO SCH (09:59)
[2021-12-16] MEDS: MAGNESIUM OXIDE 400MG TAB (MAG-OX) PO SCH ×2 (09:59→21:00)
[2021-12-16] MEDS: ROSUVASTATIN 10 MG TAB (CRESTOR) PO SCH (10:00)
[2021-12-16] MEDS: VITAMIN D 1,000 INTERNATIONAL UNITS TABLET PO SCH (10:00)
[2021-12-16] MEDS: CEPACOL LOZENGE PO PRN ×2 (10:00→17:58)
[2021-12-16] MEDS: ENOXAPARIN 40MG/0.4ML SYRINGE (J1650 PER 10MG) SC SCH (10:00)
[2021-12-16] MEDS: NIFEdipine 30 MG XL TAB PO SCH (10:01)
[2021-12-16] MEDS: LOSARTAN 25 MG TAB PO SCH ×2 (10:02→20:41)
[2021-12-16] MEDS: POTASSIUM CHLORIDE 10MEQ SR TABLET PO SCH ×2 (10:02→21:00)
[2021-12-16] MEDS: METOPROLOL TART 25 MG TABLET PO SCH ×2 (10:02→21:00)
[2021-12-16] MEDS: CHLORASEPTIC SPRAY MT PRN (10:03)
[2021-12-16] MEDS: PANTOPRAZOLE 40MG TAB (PROTONIX) PO SCH ×2 (10:03→21:00)
[2021-12-16] MEDS: ACETAMINOPHEN 500 MG TAB PO PRN ×2 (10:10→17:58)
[2021-12-16 12:00] VITALS: BP 134/82
[2021-12-16 19:46] VITALS: BP 126/66
[2021-12-16] MEDS: REMDESIVIR 100 MG in NS 250 ML IV SCH (20:59)
[2021-12-16] MEDS: SODIUM CHLORIDE 0.9% INJ 10 ML SYR IV SCH (21:53)
[2021-12-16] MEDS: BENZONATATE 100MG CAPSULE PO PRN (22:53)
[2021-12-17] MEDS: CEPACOL LOZENGE PO PRN ×2 (01:48→09:09)
[2021-12-17 03:53] VITALS: BP 127/75
[2021-12-17 07:12] LABS: BASO % 0.5 % (0.0-1.0); EOS # 0.1 10^3/uL (0.0-0.5); EOS % 1.5 % (0.0-3.0); HEMOGLOBIN 12.5 g/dl (12.0-15.5); LYMPH # 2.1 10^3/uL (1.5-5.0); LYMPH % 36.1 % (24.0-44.0); MEAN CORPUSCULAR HEMOGLOBIN 28.7 pg (27.0-33.0); MEAN CORPUSCULAR HGB CONC 32.1 g/dl (32.0-36.5); MEAN CORPUSCULAR VOLUME 89.7 fl (80.0-96.0); MONO # 0.9 10^3/uL (0.0-0.8); MONO % 15.2 % (2.0-8.0); NEUTROPHILS # 2.8 10^3/uL (1.5-8.5); NEUTROPHILS % 46.5 % (36.0-66.0); PLATELET COUNT, AUTOMATED 213 10^3/uL (150-450); RED BLOOD COUNT 4.35 10^6/uL (4.00-5.40); WHITE BLOOD COUNT 5.9 10^3/uL (4.0-10.0)
[2021-12-17] MEDS: INSULIN LISPRO (NovoLOG) PER UNIT SC SCH (07:30)
[2021-12-17 07:34] LABS: CREATININE FOR GFR 1.04 MG/DL (0.55-1.30); GLOMERULAR FILTRATION RATE 58.4 (>51); MAGNESIUM LEVEL 2.2 MG/DL (1.8-2.4); POTASSIUM SERUM 3.6 MEQ/L (3.5-5.1)
[2021-12-17] MEDS: LOSARTAN 25 MG TAB PO SCH (09:00)
[2021-12-17] MEDS: ROSUVASTATIN 10 MG TAB (CRESTOR) PO SCH ×2 (09:00→09:09)
[2021-12-17] MEDS: BENZONATATE 100MG CAPSULE PO PRN (09:08)
[2021-12-17] MEDS: ACETAMINOPHEN 500 MG TAB PO PRN (09:09)
[2021-12-17] MEDS: MAGNESIUM OXIDE 400MG TAB (MAG-OX) PO SCH (09:09)
[2021-12-17] MEDS: PANTOPRAZOLE 40MG TAB (PROTONIX) PO SCH (09:09)
[2021-12-17] MEDS: predniSONE 5 MG TAB PO SCH (09:09)
[2021-12-17 09:10] VITALS: BP 123/78
[2021-12-17] MEDS: valACYclovir HCL 500 MG TAB PO SCH (09:10)
[2021-12-17] MEDS: NIFEdipine 30 MG XL TAB PO SCH (09:10)
[2021-12-17] MEDS: ENOXAPARIN 40MG/0.4ML SYRINGE (J1650 PER 10MG) SC SCH (09:10)
[2021-12-17] MEDS: POTASSIUM CHLORIDE 10MEQ SR TABLET PO SCH (09:10)
[2021-12-17] MEDS: VITAMIN D 1,000 INTERNATIONAL UNITS TABLET PO SCH (09:10)
[2021-12-17] MEDS: METOPROLOL TART 25 MG TABLET PO SCH (09:11)
[2021-12-17] MEDS: MYCOPHENOLATE MOFETIL 250 MG CAP (J7517) PO SCH (09:12)
[2021-12-17] MEDS ORDERED: BENZ-18 PO (09:12)
[2021-12-17] MEDS: TACROLIMUS 1 MG CAP (J7507) PO SCH (09:12)
== END 2021-12-17 11:30 | disposition home or self-care (01) | DRG 178 ==
LOC: M ED 09:03 → EDBD 09:03 → M ED INP 17:24 → ENRESERVDT 20:07 → ENRESERVTM 20:07 → M 4MAIN 21:05
PROVIDERS: ADMIT Family Medicine; ATTEND Family Medicine
PROC: XW033E5 Introduction of Remdesivir Anti-infective into Peripheral Vein, Percutaneous Approach, New Technology Group 5 (ICD-10-PCS; principal; 2021-12-15)
DX: U07.1 COVID-19 (principal); Z94.0 Kidney transplant status; E11.9 Type 2 diabetes mellitus without complications; I10 Essential (primary) hypertension; M10.9 Gout, unspecified; J45.909 Unspecified asthma, uncomplicated; K21.9 Gastro-esophageal reflux disease without esophagitis; J02.9 Acute pharyngitis, unspecified; R51.9 Headache, unspecified; Z98.41 Cataract extraction status, right eye; Z98.42 Cataract extraction status, left eye; Z79.52 Long term (current) use of systemic steroids; Z79.899 Other long term (current) drug therapy; Z88.5 Allergy status to narcotic agent; Z88.8 Allergy status to other drugs, medicaments and biological substances

== ENCOUNTER → 2021-12-31 | Outpatient (CLI) | payer MEDICARE ==
[~2021-12-31] MED LIST changes: +BENZ-18 PO
[2021-12-31 09:10] LABS: BASO # 0.1 10^3/uL (0.0-0.2); BASO % 0.7 % (0.0-1.0); EOS # 0.2 10^3/uL (0.0-0.5); EOS % 2.8 % (0.0-3.0); HEMATOCRIT 39.5 % (36.0-47.0); HEMOGLOBIN 12.4 g/dl (12.0-15.5); LYMPH # 2.3 10^3/uL (1.5-5.0); LYMPH % 33.3 % (24.0-44.0); MEAN CORPUSCULAR HGB CONC 31.4 g/dl (32.0-36.5); MEAN CORPUSCULAR VOLUME 92.5 fl (80.0-96.0); MONO # 0.8 10^3/uL (0.0-0.8); MONO % 11.4 % (2.0-8.0); NEUTROPHILS # 3.5 10^3/uL (1.5-8.5); NEUTROPHILS % 51.4 % (36.0-66.0); PLATELET COUNT, AUTOMATED 281 10^3/uL (150-450); RED BLOOD COUNT 4.27 10^6/uL (4.00-5.40); WHITE BLOOD COUNT 6.9 10^3/uL (4.0-10.0)
[2021-12-31 09:44] LABS: ALBUMIN 3.8 GM/DL (3.2-5.2); ALT/SGPT 24 U/L (12-78); BILIRUBIN,TOTAL 0.4 MG/DL (0.2-1.0); BLOOD UREA NITROGEN 16 MG/DL (7-18); CALCIUM LEVEL 10.3 MG/DL (8.5-10.1); CARBON DIOXIDE LEVEL 28 MEQ/L (21-32); CHLORIDE LEVEL 111 MEQ/L (98-107); CHOLESTEROL LEVEL 126 MG/DL (<200); CHOLESTEROL RISK RATIO 2.571 (<5); FREE T4 0.92 NG/DL (0.76-1.46); GLOMERULAR FILTRATION RATE > 60.0 (>51); GLUCOSE, FASTING 109 MG/DL (70-100); HDL CHOLESTEROL 49 MG/DL (>40); LDL CHOLESTEROL 45 MG/DL (<100); NON-HDL-C 77 MG/DL; POTASSIUM SERUM 4.1 MEQ/L (3.5-5.1); SODIUM LEVEL 144 MEQ/L (136-145); TOTAL PROTEIN 7.3 GM/DL (6.4-8.2); TRIGLYCERIDES LEVEL 159 MG/DL (<150)
== END ==
LOC: M LAB 08:13
PROVIDERS: ATTEND Family Medicine
DX: E11.22 Type 2 diabetes mellitus with diabetic chronic kidney disease (principal)

== ENCOUNTER → 2022-01-18 | Outpatient (CLI) | payer MEDICARE | LOC: M RAD 13:30 | PROVIDERS: ATTEND Physician Assistant | DX: E83.52 Hypercalcemia (principal) ==

== ENCOUNTER → 2022-01-19 | Outpatient (CLI) | payer MEDICARE | LOC: M WHC 15:27 | PROVIDERS: ATTEND Family Medicine | DX: Z12.31 Encounter for screening mammogram for malignant neoplasm of breast (principal) ==

== ENCOUNTER → 2022-02-09 | Outpatient (CLI) | payer MEDICARE ==
[~2022-02-09] MED LIST changes: +POTA-150 PO; -POTA10TA17 PO
[2022-02-09 08:28] LABS: BASO # 0.1 10^3/uL (0.0-0.2); BASO % 0.7 % (0.0-1.0); EOS # 0.3 10^3/uL (0.0-0.5); EOS % 3.4 % (0.0-3.0); HEMATOCRIT 40.6 % (36.0-47.0); HEMOGLOBIN 12.6 g/dl (12.0-15.5); LYMPH # 2.2 10^3/uL (1.5-5.0); LYMPH % 30.5 % (24.0-44.0); MEAN CORPUSCULAR HEMOGLOBIN 28.5 pg (27.0-33.0); MEAN CORPUSCULAR VOLUME 91.9 fl (80.0-96.0); MONO # 0.9 10^3/uL (0.0-0.8); MONO % 12.1 % (2.0-8.0); NEUTROPHILS # 3.9 10^3/uL (1.5-8.5); NEUTROPHILS % 53.2 % (36.0-66.0); PLATELET COUNT, AUTOMATED 253 10^3/uL (150-450); RED BLOOD COUNT 4.42 10^6/uL (4.00-5.40); WHITE BLOOD COUNT 7.3 10^3/uL (4.0-10.0)
[2022-02-09 08:46] LABS: APPEARANCE, URINE CLEAR (CLEAR); BACTERIA, URINE AUTO NEGATIVE (NEGATIVE); BILIRUBIN, URINE AUTO NEGATIVE (NEGATIVE); BLOOD, URINE BLOOD NEGATIVE (NEGATIVE); COLOR, URINE YELLOW (YELLOW); GLUCOSE, URINE (UA) AUTO NEGATIVE (NEGATIVE); KETONE, URINE AUTO NEGATIVE (NEGATIVE); LEUKOCYTE ESTERASE, URINE AUTO NEGATIVE (NEGATIVE); MUCUS, URINE SMALL (NEGATIVE); NITRITE, URINE AUTO NEGATIVE (NEGATIVE); PROTEIN, URINE AUTO NEGATIVE (NEGATIVE); RBC, URINE AUTO 0 /HPF (0-3); SPECIFIC GRAVITY URINE AUTO 1.015 (1.002-1.035); SQUAMOUS EPITHELIAL CELL UR AU 0 /HPF (0-6); UROBILINOGEN, URINE AUTO 0.2 mg/dL (0.0-2.0); WBC, URINE AUTO 0 /HPF (0-3)
[2022-02-09 08:53] LABS: ALBUMIN 3.9 GM/DL (3.2-5.2); BLOOD UREA NITROGEN 16 MG/DL (7-18); CALCIUM LEVEL 10.1 MG/DL (8.5-10.1); CARBON DIOXIDE LEVEL 30 MEQ/L (21-32); CHLORIDE LEVEL 108 MEQ/L (98-107); CREATININE FOR GFR 0.89 MG/DL (0.55-1.30); GLOMERULAR FILTRATION RATE > 60.0 (>51); GLUCOSE, FASTING 104 MG/DL (70-100); MAGNESIUM LEVEL 1.9 MG/DL (1.8-2.4); PHOSPHORUS LEVEL 3.1 MG/DL (2.5-4.9); POTASSIUM SERUM 3.9 MEQ/L (3.5-5.1); SODIUM LEVEL 142 MEQ/L (136-145)
[2022-02-09 08:57] LABS: TOTAL PROTEIN,RANDOM URINE 13.8 MG/DL (0.0-12.0)
[2022-02-09 10:20] LABS: PTH INTACT 114.2 PG/ML (18.5-88.0)
== END ==
LOC: M LAB 07:48
PROVIDERS: ATTEND Internal Medicine Nephrology
DX: N18.5 Chronic kidney disease, stage 5 (principal); D84.9 Immunodeficiency, unspecified; Z94.0 Kidney transplant status; Z79.899 Other long term (current) drug therapy

== ENCOUNTER → 2022-02-09 | Outpatient (CLI) | payer MEDICARE | LOC: M LAB 07:39 | PROVIDERS: ATTEND Internal Medicine Endocrinology, Diabetes & Metabolism | DX: E83.52 Hypercalcemia (principal); N18.5 Chronic kidney disease, stage 5; D84.9 Immunodeficiency, unspecified; Z94.0 Kidney transplant status; Z79.899 Other long term (current) drug therapy ==

== ENCOUNTER → 2022-03-16 | Outpatient (CLI) | payer MEDICARE ==
[2022-03-16 16:26] LABS: CALCIUM LEVEL 10.4 MG/DL (8.5-10.1)
[2022-03-16 17:15] LABS: PTH INTACT 93.7 PG/ML (18.5-88.0)
== END ==
LOC: M PLAIMG 13:35
PROVIDERS: ATTEND Internal Medicine Endocrinology, Diabetes & Metabolism
DX: E83.52 Hypercalcemia (principal)

== ENCOUNTER → 2022-04-05 | Outpatient (CLI) | payer MEDICARE ==
[2022-04-05 08:11] LABS: BASO # 0.1 10^3/uL (0.0-0.2); BASO % 0.8 % (0.0-1.0); EOS # 0.3 10^3/uL (0.0-0.5); EOS % 4.4 % (0.0-3.0); HEMATOCRIT 40.4 % (36.0-47.0); HEMOGLOBIN 12.4 g/dl (12.0-15.5); LYMPH # 2.5 10^3/uL (1.5-5.0); MEAN CORPUSCULAR HEMOGLOBIN 28.8 pg (27.0-33.0); MEAN CORPUSCULAR HGB CONC 30.7 g/dl (32.0-36.5); MONO # 0.7 10^3/uL (0.0-0.8); MONO % 11.3 % (2.0-8.0); NEUTROPHILS # 2.8 10^3/uL (1.5-8.5); PLATELET COUNT, AUTOMATED 244 10^3/uL (150-450); WHITE BLOOD COUNT 6.3 10^3/uL (4.0-10.0)
[2022-04-05 08:43] LABS: HEMOGLOBIN A1c 6.5 %
[2022-04-05 08:46] LABS: ALBUMIN 3.9 GM/DL (3.2-5.2); ALT/SGPT 22 U/L (12-78); BILIRUBIN,TOTAL 0.3 MG/DL (0.2-1.0); BLOOD UREA NITROGEN 19 MG/DL (7-18); CALCIUM LEVEL 9.8 MG/DL (8.5-10.1); CARBON DIOXIDE LEVEL 31 MEQ/L (21-32); CHLORIDE LEVEL 107 MEQ/L (98-107); CREATININE FOR GFR 0.92 MG/DL (0.55-1.30); GLOMERULAR FILTRATION RATE > 60.0 (>51); GLUCOSE, FASTING 90 MG/DL (70-100); SODIUM LEVEL 140 MEQ/L (136-145); TOTAL PROTEIN 7.6 GM/DL (6.4-8.2)
[2022-04-05 09:25] LABS: PTH INTACT 95.8 PG/ML (18.5-88.0)
== END ==
LOC: M LAB 07:06
PROVIDERS: ATTEND Physician Assistant
DX: E11.22 Type 2 diabetes mellitus with diabetic chronic kidney disease (principal)

== ENCOUNTER → 2022-06-09 | Outpatient (REF) | payer MEDICARE ==
[~2022-06-09] MED LIST changes: -DOXY-350 PO; +DOXY-444 PO
== END ==
LOC: M LAB REF 17:21
PROVIDERS: ATTEND Internal Medicine Nephrology
DX: Z94.0 Kidney transplant status (principal); Z48.22 Encounter for aftercare following kidney transplant

== ENCOUNTER → 2022-06-09 | Outpatient (CLI) | payer MEDICARE ==
[2022-06-09 08:42] LABS: BASO % 0.6 % (0.0-1.0); EOS # 0.3 10^3/uL (0.0-0.5); HEMATOCRIT 41.7 % (36.0-47.0); HEMOGLOBIN 12.7 g/dl (12.0-15.5); LYMPH # 2.5 10^3/uL (1.5-5.0); LYMPH % 36.1 % (24.0-44.0); MEAN CORPUSCULAR HEMOGLOBIN 28.5 pg (27.0-33.0); MEAN CORPUSCULAR HGB CONC 30.5 g/dl (32.0-36.5); MEAN CORPUSCULAR VOLUME 93.5 fl (80.0-96.0); MONO # 0.8 10^3/uL (0.0-0.8); NEUTROPHILS # 3.3 10^3/uL (1.5-8.5); NEUTROPHILS % 46.9 % (36.0-66.0); PLATELET COUNT, AUTOMATED 258 10^3/uL (150-450); RED BLOOD COUNT 4.46 10^6/uL (4.00-5.40)
[2022-06-09 09:22] LABS: ALBUMIN 3.9 G/DL (3.2-5.2); ALKALINE PHOSPHATASE 80 U/L (46-116); ALT/SGPT 17 U/L (7.0-40); AST/SGOT 12 U/L (<34); BILIRUBIN,TOTAL 0.4 MG/DL (0.3-1.2); BLOOD UREA NITROGEN 15 MG/DL (9-23); CALCIUM LEVEL 9.8 MG/DL (8.5-10.1); CARBON DIOXIDE LEVEL 30 MMOL/L (20-31); CHLORIDE LEVEL 105 MMOL/L (98-107); CHOLESTEROL LEVEL 130 MG/DL (<200); CHOLESTEROL RISK RATIO 2.38 (<5); CREATININE FOR GFR 0.92 MG/DL (0.55-1.30); GLOMERULAR FILTRATION RATE > 60.0 (>51); GLUCOSE, FASTING 98 MG/DL (60-100); HDL CHOLESTEROL 54.6 MG/DL (>40); LDL CHOLESTEROL 52.2 MG/DL (<100); NON-HDL-C 75 MG/DL; SODIUM LEVEL 143 MMOL/L (136-145); TOTAL PROTEIN 7.3 G/DL (5.7-8.2); TRIGLYCERIDES LEVEL 116 MG/DL (<150)
[2022-06-09 12:41] LABS: HEMOGLOBIN A1c 6.8 % (4.0-6.0)
== END ==
LOC: M LAB 07:07
PROVIDERS: ATTEND Family Medicine
DX: E11.22 Type 2 diabetes mellitus with diabetic chronic kidney disease (principal)

== ENCOUNTER → 2022-06-12 | Outpatient (REF) | payer MEDICARE | LOC: M LAB REF 17:16 | PROVIDERS: ATTEND Physician Assistant | DX: N76.0 Acute vaginitis (principal) ==

== ENCOUNTER → 2022-10-10 | Outpatient (REF) | payer MEDICARE | LOC: M LAB REF 17:38 | PROVIDERS: ATTEND Internal Medicine Nephrology | DX: Z94.0 Kidney transplant status (principal); Z48.22 Encounter for aftercare following kidney transplant ==

== ENCOUNTER → 2022-10-10 | Outpatient (CLI) | payer MEDICARE | LOC: M PLAIMG 09:30 | PROVIDERS: ATTEND Family Medicine | DX: M54.6 Pain in thoracic spine (principal); E07.9 Disorder of thyroid, unspecified; E78.00 Pure hypercholesterolemia, unspecified ==

== ENCOUNTER → 2022-10-10 | Outpatient (REF) | payer MEDICARE ==
[2022-10-10 19:12] LABS: CREATININE, URINE 118.4 MG/DL; MAU/CREAT RATIO 19.4 MCG/MG (0.0-30.0)
[2022-10-10 19:16] LABS: CHOLESTEROL RISK RATIO 2.58 (<5); HDL CHOLESTEROL 50.6 MG/DL (>40); LDL CHOLESTEROL 54.4 MG/DL (<100); NON-HDL-C 80.4 MG/DL; THYROID STIMULATING HORMONE 2.911 uIU/ML (0.55-4.78)
[2022-10-10 19:18] LABS: FREE T4 1.1 NG/DL (0.89-1.76)
== END ==
LOC: M LAB REF 17:36
PROVIDERS: ATTEND Family Medicine
DX: E11.22 Type 2 diabetes mellitus with diabetic chronic kidney disease (principal)

== ENCOUNTER → 2022-12-08 | Outpatient (REF) | payer MEDICARE ==
[~2022-12-08] MED LIST changes: -COZA50TA PO; +LOSA-528 PO
== END ==
LOC: M LAB REF 17:29
PROVIDERS: ATTEND Internal Medicine Nephrology
DX: Z94.0 Kidney transplant status (principal); Z48.22 Encounter for aftercare following kidney transplant

== ENCOUNTER → 2022-12-12 | Outpatient (CLI) | payer MEDICARE | LOC: M PLAIMG 13:08 | PROVIDERS: ATTEND Family Medicine | DX: J20.9 Acute bronchitis, unspecified (principal) ==

== ENCOUNTER → 2022-12-18 | Outpatient (REF) | payer MEDICARE ==
[~2022-12-18] MED LIST changes: -NIFE60TA40 OR; +NIFE60TA96 OR; -NIFE90TA20 PO; +NIFE90TA46 PO; -ROSU20TA5 PO; +ROSU20TA61 PO
== END ==
LOC: M LAB REF 16:57
PROVIDERS: ATTEND Family Medicine
DX: J18.9 Pneumonia, unspecified organism (principal)

== ENCOUNTER → 2023-01-05 | Outpatient (CLI) | payer MEDICARE ==
[2023-01-05 10:42] LABS: BASO % 0.7 % (0.0-1.0); EOS # 0.3 10^3/uL (0.0-0.5); EOS % 5.6 % (0.0-3.0); HEMATOCRIT 41.8 % (36.0-47.0); HEMOGLOBIN 13.4 g/dl (12.0-15.5); LYMPH # 2.3 10^3/uL (1.5-5.0); LYMPH % 41.4 % (24.0-44.0); MEAN CORPUSCULAR HEMOGLOBIN 29.8 pg (27.0-33.0); MEAN CORPUSCULAR HGB CONC 32.1 g/dl (32.0-36.5); MEAN CORPUSCULAR VOLUME 92.9 fl (80.0-96.0); MONO # 0.6 10^3/uL (0.0-0.8); MONO % 11.3 % (2.0-8.0); NEUTROPHILS # 2.3 10^3/uL (1.5-8.5); NEUTROPHILS % 40.8 % (36.0-66.0); PLATELET COUNT, AUTOMATED 201 10^3/uL (150-450); WHITE BLOOD COUNT 5.5 10^3/uL (4.0-10.0)
[2023-01-05 10:43] LABS: ALBUMIN 4.1 G/DL (3.2-5.2); ALKALINE PHOSPHATASE 109 U/L (46-116); ALT/SGPT 32 U/L (7.0-40); AST/SGOT 8 U/L (<34); BILIRUBIN,TOTAL 0.7 MG/DL (0.3-1.2); BLOOD UREA NITROGEN 13 MG/DL (9-23); CALCIUM LEVEL 10.7 MG/DL (8.5-10.1); CARBON DIOXIDE LEVEL 30 MMOL/L (20-31); CHLORIDE LEVEL 103 MMOL/L (98-107); CHOLESTEROL LEVEL 150 MG/DL (<200); CREATININE FOR GFR 0.68 MG/DL (0.55-1.30); GLOMERULAR FILTRATION RATE > 60.0 (>51); GLUCOSE, FASTING 287 MG/DL (60-100); HDL CHOLESTEROL 53.5 MG/DL (>40); LDL CHOLESTEROL 56.1 MG/DL (<100); NON-HDL-C 96.5 MG/DL; POTASSIUM SERUM 3.9 MMOL/L (3.5-5.1); SODIUM LEVEL 140 MMOL/L (136-145); TOTAL PROTEIN 7.3 G/DL (5.7-8.2); TRIGLYCERIDES LEVEL 202 MG/DL (<150)
[2023-01-05 11:17] LABS: HEMOGLOBIN A1c 9.7 % (4.0-6.0)
== END ==
LOC: M PLALAB 07:58
PROVIDERS: ATTEND Family Medicine
DX: J18.9 Pneumonia, unspecified organism (principal); E78.00 Pure hypercholesterolemia, unspecified

== ENCOUNTER → 2023-01-22 | Outpatient (CLI) | payer MEDICARE | LOC: M WHC 13:45 | PROVIDERS: ATTEND Family Medicine | DX: Z12.31 Encounter for screening mammogram for malignant neoplasm of breast (principal) ==

== ENCOUNTER → 2023-04-18 | Outpatient (CLI) | payer MEDICARE ==
[2023-04-18 11:00] LABS: ALBUMIN 3.9 G/DL (3.2-5.2); ALKALINE PHOSPHATASE 74 U/L (46-116); ALT/SGPT 20 U/L (7.0-40); AST/SGOT 10 U/L (<34); BILIRUBIN,TOTAL 0.4 MG/DL (0.3-1.2); BLOOD UREA NITROGEN 19 MG/DL (9-23); CALCIUM LEVEL 10.1 MG/DL (8.5-10.1); CARBON DIOXIDE LEVEL 29 MMOL/L (20-31); CHLORIDE LEVEL 109 MMOL/L (98-107); CREATININE FOR GFR 0.83 MG/DL (0.55-1.30); GLOMERULAR FILTRATION RATE > 60.0 (>51); GLUCOSE, FASTING 100 MG/DL (60-100); POTASSIUM SERUM 3.9 MMOL/L (3.5-5.1); SODIUM LEVEL 145 MMOL/L (136-145); TOTAL PROTEIN 7.1 G/DL (5.7-8.2)
[2023-04-18 11:01] LABS: THYROID STIMULATING HORMONE 3.494 uIU/ML (0.55-4.78)
[2023-04-18 11:03] LABS: FREE T4 1.12 NG/DL (0.89-1.76)
[2023-04-18 11:16] LABS: BASO % 0.5 % (0.0-1.0); EOS # 0.4 10^3/uL (0.0-0.5); EOS % 4.5 % (0.0-3.0); LYMPH # 2.7 10^3/uL (1.5-5.0); MEAN CORPUSCULAR HEMOGLOBIN 29.2 pg (27.0-33.0); MEAN CORPUSCULAR VOLUME 94.4 fl (80.0-96.0); MONO # 0.9 10^3/uL (0.0-0.8); MONO % 11.7 % (2.0-8.0); NEUTROPHILS # 3.8 10^3/uL (1.5-8.5); PLATELET COUNT, AUTOMATED 241 10^3/uL (150-450); RED BLOOD COUNT 4.45 10^6/uL (4.00-5.40); WHITE BLOOD COUNT 7.8 10^3/uL (4.0-10.0)
[2023-04-18 11:22] LABS: HEMOGLOBIN A1c 8.3 % (4.0-6.0)
== END ==
LOC: M PLALAB 07:49
PROVIDERS: ATTEND Physician Assistant
DX: E11.22 Type 2 diabetes mellitus with diabetic chronic kidney disease (principal)

== ENCOUNTER → 2023-04-20 | Outpatient (REF) | payer MEDICARE | LOC: M LAB REF 15:27 | PROVIDERS: ATTEND Family Medicine | DX: N76.0 Acute vaginitis (principal); R30.0 Dysuria ==

== ENCOUNTER → 2023-05-03 | Outpatient (CLI) | payer MEDICARE | LOC: M WHC 10:47 | PROVIDERS: ATTEND Family Medicine | DX: R10.2 Pelvic and perineal pain (principal) ==

== ENCOUNTER → 2023-05-10 | Outpatient (CLI) | payer MEDICARE | LOC: M PLAIMG 09:19 | PROVIDERS: ATTEND Family Medicine | DX: M54.6 Pain in thoracic spine (principal) ==

== ENCOUNTER → 2023-05-21 | Outpatient (REF) | payer MEDICARE | LOC: M LAB REF 17:37 | PROVIDERS: ATTEND Internal Medicine Endocrinology, Diabetes & Metabolism | DX: E04.1 Nontoxic single thyroid nodule (principal) ==

== ENCOUNTER → 2023-06-13 | Outpatient (CLI) | payer MEDICARE ==
[2023-06-13 10:13] LABS: BASO # 0.1 10^3/uL (0.0-0.2); BASO % 0.7 % (0.0-1.0); EOS # 0.2 10^3/uL (0.0-0.5); EOS % 3.6 % (0.0-3.0); HEMATOCRIT 43.2 % (36.0-47.0); HEMOGLOBIN 13.7 g/dl (12.0-15.5); LYMPH # 2.5 10^3/uL (1.5-5.0); LYMPH % 37.6 % (24.0-44.0); MEAN CORPUSCULAR HEMOGLOBIN 29.1 pg (27.0-33.0); MEAN CORPUSCULAR HGB CONC 31.7 g/dl (32.0-36.5); MEAN CORPUSCULAR VOLUME 91.7 fl (80.0-96.0); MONO # 0.8 10^3/uL (0.0-0.8); MONO % 11.8 % (2.0-8.0); NEUTROPHILS # 3.1 10^3/uL (1.5-8.5); PLATELET COUNT, AUTOMATED 232 10^3/uL (150-450); RED BLOOD COUNT 4.71 10^6/uL (4.00-5.40); WHITE BLOOD COUNT 6.7 10^3/uL (4.0-10.0)
[2023-06-13 10:28] LABS: HEMOGLOBIN A1c 6.7 % (4.0-6.0)
[2023-06-13 10:40] LABS: CREATININE, URINE 142.1 MG/DL
[2023-06-13 10:41] LABS: ALKALINE PHOSPHATASE 86 U/L (46-116); ALT/SGPT 39 U/L (7.0-40); AST/SGOT 14 U/L (<34); BILIRUBIN,TOTAL 0.4 MG/DL (0.3-1.2); BLOOD UREA NITROGEN 14 MG/DL (9-23); CALCIUM LEVEL 10.1 MG/DL (8.5-10.1); CARBON DIOXIDE LEVEL 30 MMOL/L (20-31); CHLORIDE LEVEL 108 MMOL/L (98-107); CHOLESTEROL LEVEL 131 MG/DL (<200); CHOLESTEROL RISK RATIO 2.27 (<5); CREATININE FOR GFR 0.73 MG/DL (0.55-1.30); FREE T4 1.16 NG/DL (0.89-1.76); GLOMERULAR FILTRATION RATE > 60.0 (>51); GLUCOSE, FASTING 108 MG/DL (60-100); HDL CHOLESTEROL 57.6 MG/DL (>40); MAU/CREAT RATIO 20.4 MCG/MG (0.0-30.0); NON-HDL-C 73.4 MG/DL; POTASSIUM SERUM 3.6 MMOL/L (3.5-5.1); SODIUM LEVEL 144 MMOL/L (136-145); TOTAL PROTEIN 7.3 G/DL (5.7-8.2); TRIGLYCERIDES LEVEL 107 MG/DL (<150)
[2023-06-13 10:42] LABS: THYROID STIMULATING HORMONE 2.868 uIU/ML (0.55-4.78)
== END ==
LOC: M PLALAB 07:45
PROVIDERS: ATTEND Family Medicine
DX: E11.22 Type 2 diabetes mellitus with diabetic chronic kidney disease (principal); E78.2 Mixed hyperlipidemia

== ENCOUNTER → 2023-10-26 | Outpatient (CLI) | payer MEDICARE ==
[~2023-10-26] MED LIST changes: -SENN1TAB41 PO; +SENN1TAB85 PO
[2023-10-26 12:20] LABS: ALKALINE PHOSPHATASE 86 U/L (46-116); ALT/SGPT 20 U/L (7.0-40); AST/SGOT 11 U/L (<34); BILIRUBIN,TOTAL 0.5 MG/DL (0.3-1.2); BLOOD UREA NITROGEN 17 MG/DL (9-23); CALCIUM LEVEL 10.4 MG/DL (8.5-10.1); CARBON DIOXIDE LEVEL 30 MMOL/L (20-31); CHLORIDE LEVEL 109 MMOL/L (98-107); CREATININE FOR GFR 0.85 MG/DL (0.55-1.30); GLOMERULAR FILTRATION RATE > 60.0 (>51); GLUCOSE, FASTING 100 MG/DL (60-100); POTASSIUM SERUM 3.7 MMOL/L (3.5-5.1); SODIUM LEVEL 141 MMOL/L (136-145); TOTAL PROTEIN 7.2 G/DL (5.7-8.2)
[2023-10-26 12:51] LABS: BASO # 0.1 10^3/uL (0.0-0.2); BASO % 0.9 % (0.0-1.0); EOS # 0.2 10^3/uL (0.0-0.5); EOS % 3.3 % (0.0-3.0); HEMATOCRIT 43.5 % (36.0-47.0); HEMOGLOBIN 13.6 g/dl (12.0-15.5); LYMPH # 2.6 10^3/uL (1.5-5.0); LYMPH % 38.2 % (24.0-44.0); MEAN CORPUSCULAR HGB CONC 31.3 g/dl (32.0-36.5); MEAN CORPUSCULAR VOLUME 95.8 fl (80.0-96.0); MONO # 0.8 10^3/uL (0.0-0.8); MONO % 11.9 % (2.0-8.0); NEUTROPHILS # 3.1 10^3/uL (1.5-8.5); NEUTROPHILS % 45.4 % (36.0-66.0); PLATELET COUNT, AUTOMATED 276 10^3/uL (150-450); RED BLOOD COUNT 4.54 10^6/uL (4.00-5.40); WHITE BLOOD COUNT 6.9 10^3/uL (4.0-10.0)
== END ==
LOC: M PLALAB 08:10
PROVIDERS: ATTEND Family Medicine
DX: E78.2 Mixed hyperlipidemia (principal)

== ENCOUNTER → 2023-11-08 | Outpatient (REF) | payer MEDICARE ==
[~2023-11-08] MED LIST changes: +DOXY-440 PO; -DOXY-444 PO
== END ==
LOC: M LAB REF 17:19
PROVIDERS: ATTEND Internal Medicine Nephrology
DX: Z94.0 Kidney transplant status (principal); Z48.22 Encounter for aftercare following kidney transplant

== ENCOUNTER 2023-12-20 10:24 | Inpatient (IN) | payer MEDICARE ==
[~2023-12-20] VITALS: Ht 167.6 cm; Wt 90.3 kg
[2023-12-20 11:25] LABS: VENOUS BASE EXCESS -0.2 (-2.0-2.0); VENOUS HCO3 23.6 MMOL/L (23.0-27.0); VENOUS O2 SATURATION 86.6 % (60.0-80.0); VENOUS PARTIAL PRESSURE CO2 36.1 mmHg (38.0-50.0); VENOUS PARTIAL PRESSURE O2 49.3 mmHg (30.0-50.0); VENOUS PH 7.434 UNITS (7.330-7.430); VENOUS STANDARD HCO3 24.1 MMOL/L; VENOUS TOTAL CO2 24.7 MMOL/L (24.0-28.0)
[2023-12-20 11:36] LABS: BASO # 0.1 10^3/uL (0.0-0.2); BASO % 0.3 % (0.0-1.0); EOS # 0.2 10^3/uL (0.0-0.5); EOS % 1.6 % (0.0-3.0); HEMATOCRIT 42.5 % (36.0-47.0); HEMOGLOBIN 13.9 g/dl (12.0-15.5); LYMPH # 1.1 10^3/uL (1.5-5.0); LYMPH % 7.7 % (24.0-44.0); MEAN CORPUSCULAR HEMOGLOBIN 30.2 pg (27.0-33.0); MEAN CORPUSCULAR HGB CONC 32.7 g/dl (32.0-36.5); MEAN CORPUSCULAR VOLUME 92.2 fl (80.0-96.0); MONO # 1.5 10^3/uL (0.0-0.8); NEUTROPHILS # 11.8 10^3/uL (1.5-8.5); NEUTROPHILS % 80.1 % (36.0-66.0); PLATELET COUNT, AUTOMATED 255 10^3/uL (150-450); RED BLOOD COUNT 4.61 10^6/uL (4.00-5.40); WHITE BLOOD COUNT 14.8 10^3/uL (4.0-10.0)
[2023-12-20 11:53] LABS: INR 0.89; PARTIAL THROMBOPLASTIN TIME 32.3 SECONDS (24.8-34.2); PROTHROMBIN TIME 11.8 SECONDS (12.5-14.5)
[2023-12-20 11:57] LABS: ALBUMIN 4.1 G/DL (3.2-5.2); ALKALINE PHOSPHATASE 102 U/L (46-116); ALT/SGPT 26 U/L (7.0-40); AMYLASE 70 U/L (30-118); AST/SGOT 16 U/L (<34); BILIRUBIN,DIRECT 0.1 MG/DL (<0.4); BILIRUBIN,TOTAL 0.5 MG/DL (0.3-1.2); BLOOD UREA NITROGEN 14 MG/DL (9-23); CALCIUM LEVEL 9.7 MG/DL (8.5-10.1); CARBON DIOXIDE LEVEL 25 MMOL/L (20-31); CHLORIDE LEVEL 105 MMOL/L (98-107); CK-MB VALUE MASS < 1.0 NG/ML (<3.6); CREATININE FOR GFR 0.72 MG/DL (0.55-1.30); GLOMERULAR FILTRATION RATE > 60.0 (>51); GLUCOSE, FASTING 115 MG/DL (60-100); POTASSIUM SERUM 4.5 MMOL/L (3.5-5.1); SODIUM LEVEL 141 MMOL/L (136-145); TOTAL PROTEIN 7.3 G/DL (5.7-8.2)
[2023-12-20 12:09] LABS: PROCALCITONIN 0.09 ng/ml
[2023-12-20 12:10] LABS: CPK CREATINE PHOSPHOKINASE 73 U/L (34-145); MB/CK RELATIVE INDEX 1.36 (< OR =4)
[2023-12-20] MEDS ORDERED: FARX1TAB3 PO (13:48)
[2023-12-20] MEDS ORDERED: CYCL1DRO10 OU (13:48)
[2023-12-20] MEDS ORDERED: AZEL1SPR3 NARES (13:48)
[2023-12-20] MEDS ORDERED: HOME MED LIST COMPLETE! XX SCH (13:50)
[2023-12-20 13:54] LABS: APPEARANCE, URINE HAZY (CLEAR); BACTERIA, URINE AUTO NEGATIVE (NEGATIVE); BILIRUBIN, URINE AUTO NEGATIVE (NEGATIVE); BLOOD, URINE BLOOD NEGATIVE (NEGATIVE); COLOR, URINE YELLOW (YELLOW); GLUCOSE, URINE (UA) AUTO 3+ mg/dL (NEGATIVE); KETONE, URINE AUTO NEGATIVE (NEGATIVE); LEUKOCYTE ESTERASE, URINE AUTO 2+ (NEGATIVE); MUCUS, URINE SMALL (NEGATIVE); NITRITE, URINE AUTO NEGATIVE (NEGATIVE); PROTEIN, URINE AUTO 1+ mg/dL (NEGATIVE); RBC, URINE AUTO 0 /HPF (0-3); SQUAMOUS EPITHELIAL CELL UR AU 4 /HPF (0-6); UROBILINOGEN, URINE AUTO 0.2 mg/dL (0.0-2.0); WBC, URINE AUTO 1 /HPF (0-3)
[2023-12-20] MEDS: ONDANSETRON 4MG 2ML VIAL IV ONE (15:24)
[2023-12-20] MEDS: NS 1,000 ML IV SCH ×2 (15:24→15:25)
[2023-12-20] MEDS: cefTRIAXone SOD 2 GM in D5W MINI-BAG PLUS 50 ML IV ONE (15:24)
[2023-12-20] MEDS: SUCRALFATE SUSP 1GM/10ML UD PO SCH (16:00)
[2023-12-20] MEDS: FIORICET TAB PO ONE (16:01)
[2023-12-20] MEDS ORDERED: GLUCOSE 4 GM CHEW PO PRN (16:45)
[2023-12-20] MEDS ORDERED: GLUCAGON INJ 1MG VIAL SC PRN (16:45)
[2023-12-20] MEDS ORDERED: DEXTROSE 50% 50ML SYRINGE IV PRN (16:45)
[2023-12-20 16:51] LABS: INR 0.95; PROTHROMBIN TIME 12.4 SECONDS (12.5-14.5)
[2023-12-20 17:30] VITALS: BP 115/79; TEMP 99; O2SAT 99
[2023-12-20] MEDS: INSULIN LISPRO (NovoLOG) PER UNIT SC SCH ×2 (17:30→20:58)
[2023-12-20 20:27] VITALS: BP 146/90; TEMP 100.9; O2SAT 99
[2023-12-20] MEDS: MAGNESIUM OXIDE 400MG TAB (MAG-OX) PO SCH (20:54)
[2023-12-20] MEDS: POTASSIUM CHLORIDE 10MEQ SR TABLET PO SCH (20:54)
[2023-12-20] MEDS: ROSUVASTATIN 10 MG TAB (CRESTOR) PO SCH (20:54)
[2023-12-20] MEDS: CETIRIZINE (ZyrTEC) 10 MG TAB PO SCH (20:54)
[2023-12-20] MEDS: PANTOPRAZOLE 40MG TAB (PROTONIX) PO SCH (20:55)
[2023-12-20] MEDS: LOSARTAN 50MG TABLET PO SCH (20:55)
[2023-12-20] MEDS: METOPROLOL TART 50 MG TAB PO SCH (20:56)
[2023-12-20] MEDS: TACROLIMUS 1MG CAP PO SCH (20:56)
[2023-12-20] MEDS: MYCOPHENOLATE MOFETIL 250 MG CAP (J7517) PO SCH (20:57)
[2023-12-20] MEDS ORDERED: OPTH OU SCH (21:00)
[2023-12-20] MEDS ORDERED: CYCLOSPORINE 0.05% OU SCH (21:00)
[2023-12-20] MEDS: IBUPROFEN 400MG TAB PO ONE (21:53)
[2023-12-21] VITALS (8 sets, daily range): BP systolic 134–176; BP diastolic 65–104; TEMP 99.4–103.3; O2SAT 91–99
[2023-12-21 06:33] LABS: HEMATOCRIT 41.4 % (36.0-47.0); HEMOGLOBIN 13.2 g/dl (12.0-15.5); MEAN CORPUSCULAR HGB CONC 31.9 g/dl (32.0-36.5); MEAN CORPUSCULAR VOLUME 94.1 fl (80.0-96.0); PLATELET COUNT, AUTOMATED 205 10^3/uL (150-450); WHITE BLOOD COUNT 10.5 10^3/uL (4.0-10.0)
[2023-12-21 07:06] LABS: ALBUMIN 3.5 G/DL (3.2-5.2); ALKALINE PHOSPHATASE 89 U/L (46-116); ALT/SGPT 19 U/L (7.0-40); AST/SGOT < 8 U/L (<34); BILIRUBIN,TOTAL 0.4 MG/DL (0.3-1.2); BLOOD UREA NITROGEN 12 MG/DL (9-23); CALCIUM LEVEL 8.9 MG/DL (8.5-10.1); CARBON DIOXIDE LEVEL 28 MMOL/L (20-31); CHLORIDE LEVEL 108 MMOL/L (98-107); CREATININE FOR GFR 0.82 MG/DL (0.55-1.30); GLOMERULAR FILTRATION RATE > 60.0 (>51); GLUCOSE, FASTING 91 MG/DL (60-100); SODIUM LEVEL 141 MMOL/L (136-145); TOTAL PROTEIN 6.5 G/DL (5.7-8.2)
[2023-12-21] MEDS: NIFEdipine 30MG XL TAB PO SCH (08:24)
[2023-12-21] MEDS: ENOXAPARIN 40MG/0.4ML SYRINGE (J1650 PER 10MG) SC SCH (08:24)
[2023-12-21] MEDS: predniSONE 5 MG TAB PO SCH (08:25)
[2023-12-21] MEDS: DAPAGLIFLOZIN PROPANEDIOL 10MG TABLET (FARXIGA) PO SCH (08:26)
[2023-12-21] MEDS: valACYclovir HCL 500 MG TAB PO SCH (08:26)
[2023-12-21] MEDS: FIORICET TAB PO PRN (08:26)
[2023-12-21] MEDS ORDERED: ISOVUE-370 76% 100ML VIAL As Ordered ONE (09:03)
[2023-12-21] MEDS: AZELASTINE 137MCG NASAL SPY 30 ML (ASTELIN) SCH (10:18)
[2023-12-21] MEDS: cefTRIAXone SOD 1 GM in D5W MINI-BAG PLUS 50 ML IV SCH (14:12)
[2023-12-21] MEDS: ACETAMINOPHEN TAB 650MG DOSE (2X325MG) PO PRN (14:13)
[2023-12-21] MEDS: KETOROLAC 30 MG/ML 1ML VIAL IV ONE (15:15)
[2023-12-21] MEDS: DOXYCYCLINE HYCLATE 100MG TABLET PO SCH (21:08)
[2023-12-21 21:58] LABS: PROCALCITONIN 0.18 ng/ml
[2023-12-21] MEDS: IBUPROFEN 400MG TAB PO ONE (23:23)
[2023-12-21 23:26] LABS: ALBUMIN 3.6 G/DL (3.2-5.2); ALKALINE PHOSPHATASE 90 U/L (46-116); ALT/SGPT 20 U/L (7.0-40); AST/SGOT 10 U/L (<34); BILIRUBIN,TOTAL 0.4 MG/DL (0.3-1.2); BLOOD UREA NITROGEN 10 MG/DL (9-23); CALCIUM LEVEL 9.7 MG/DL (8.5-10.1); CARBON DIOXIDE LEVEL 28 MMOL/L (20-31); CHLORIDE LEVEL 105 MMOL/L (98-107); CREATININE FOR GFR 0.96 MG/DL (0.55-1.30); GLOMERULAR FILTRATION RATE > 60.0 (>51); GLUCOSE, FASTING 100 MG/DL (60-100); MAGNESIUM LEVEL 1.5 MG/DL (1.8-2.4); POTASSIUM SERUM 3.6 MMOL/L (3.5-5.1); SODIUM LEVEL 139 MMOL/L (136-145); TOTAL PROTEIN 6.6 G/DL (5.7-8.2)
[2023-12-22 00:45] VITALS: BP 116/74; TEMP 100.8; O2SAT 95
[2023-12-22 01:30] VITALS: TEMP 99.1
[2023-12-22] MEDS: ACETAMINOPHEN *IV* 1,000 MG in IV 1 EA IV ONE (01:35)
[2023-12-22] MEDS: MAG SULF 1GM/100ML (MAG RUN) 1 GM in IV 1 EA IV ONE (02:02)
[2023-12-22 03:21] VITALS: BP 129/87; TEMP 99.1; O2SAT 94
[2023-12-22 09:12] LABS: HEMATOCRIT 39.2 % (36.0-47.0); HEMOGLOBIN 12.4 g/dl (12.0-15.5); MEAN CORPUSCULAR HEMOGLOBIN 29.6 pg (27.0-33.0); MEAN CORPUSCULAR HGB CONC 31.6 g/dl (32.0-36.5); MEAN CORPUSCULAR VOLUME 93.6 fl (80.0-96.0); PLATELET COUNT, AUTOMATED 181 10^3/uL (150-450); RED BLOOD COUNT 4.19 10^6/uL (4.00-5.40); WHITE BLOOD COUNT 8.4 10^3/uL (4.0-10.0)
[2023-12-22 09:47] LABS: ALKALINE PHOSPHATASE 78 U/L (46-116); ALT/SGPT 19 U/L (7.0-40); AST/SGOT 10 U/L (<34); BILIRUBIN,TOTAL 0.3 MG/DL (0.3-1.2); BLOOD UREA NITROGEN 9 MG/DL (9-23); CALCIUM LEVEL 8.9 MG/DL (8.5-10.1); CARBON DIOXIDE LEVEL 26 MMOL/L (20-31); CHLORIDE LEVEL 109 MMOL/L (98-107); CREATININE FOR GFR 0.81 MG/DL (0.55-1.30); GLOMERULAR FILTRATION RATE > 60.0 (>51); GLUCOSE, FASTING 116 MG/DL (60-100); POTASSIUM SERUM 3.6 MMOL/L (3.5-5.1); SODIUM LEVEL 142 MMOL/L (136-145)
[2023-12-22 12:00] VITALS: BP 127/84; TEMP 101.7; O2SAT 95
[2023-12-22] MEDS: LACTOBACILLUS ACIDOPHILUS CAP (BACID) PO SCH (18:17)
[2023-12-22] MEDS: PIPERACILLIN/TAZOBACTAM SOD 3.375 GM in D5W MINI-BAG PLUS 50 ML IV SCH (18:17)
[2023-12-22 20:39] VITALS: BP 130/82; TEMP 99.1; O2SAT 97
[2023-12-22] MEDS: MYCOPHENOLATE MOFETIL 250 MG CAP (J7517) PO SCH (20:59)
[2023-12-23 05:19] VITALS: BP 136/82; TEMP 99.2; O2SAT 96
[2023-12-23 06:45] LABS: HEMATOCRIT 39.6 % (36.0-47.0); HEMOGLOBIN 12.6 g/dl (12.0-15.5); MEAN CORPUSCULAR HEMOGLOBIN 29.8 pg (27.0-33.0); MEAN CORPUSCULAR HGB CONC 31.8 g/dl (32.0-36.5); MEAN CORPUSCULAR VOLUME 93.6 fl (80.0-96.0); PLATELET COUNT, AUTOMATED 186 10^3/uL (150-450); RED BLOOD COUNT 4.23 10^6/uL (4.00-5.40); WHITE BLOOD COUNT 6.9 10^3/uL (4.0-10.0)
[2023-12-23 07:08] LABS: ALBUMIN 3.2 G/DL (3.2-5.2); ALKALINE PHOSPHATASE 72 U/L (46-116); ALT/SGPT 22 U/L (7.0-40); AST/SGOT 14 U/L (<34); BILIRUBIN,TOTAL 0.4 MG/DL (0.3-1.2); BLOOD UREA NITROGEN 7 MG/DL (9-23); CALCIUM LEVEL 9.4 MG/DL (8.5-10.1); CARBON DIOXIDE LEVEL 25 MMOL/L (20-31); CHLORIDE LEVEL 109 MMOL/L (98-107); GLOMERULAR FILTRATION RATE > 60.0 (>51); GLUCOSE, FASTING 85 MG/DL (60-100); POTASSIUM SERUM 3.6 MMOL/L (3.5-5.1); SODIUM LEVEL 141 MMOL/L (136-145); TOTAL PROTEIN 6.1 G/DL (5.7-8.2)
[2023-12-23 12:00] VITALS: BP 124/71; TEMP 99.4; O2SAT 96
[2023-12-23 20:00] VITALS: BP 133/84; TEMP 97.9; O2SAT 97
[2023-12-24 04:00] VITALS: BP 117/73; TEMP 97.9; O2SAT 99
[2023-12-24 05:46] LABS: HEMATOCRIT 39.4 % (36.0-47.0); HEMOGLOBIN 12.9 g/dl (12.0-15.5); MEAN CORPUSCULAR HEMOGLOBIN 30.2 pg (27.0-33.0); MEAN CORPUSCULAR HGB CONC 32.7 g/dl (32.0-36.5); MEAN CORPUSCULAR VOLUME 92.3 fl (80.0-96.0); PLATELET COUNT, AUTOMATED 212 10^3/uL (150-450); RED BLOOD COUNT 4.27 10^6/uL (4.00-5.40); WHITE BLOOD COUNT 5.8 10^3/uL (4.0-10.0)
[2023-12-24 06:15] LABS: ALBUMIN 3.2 G/DL (3.2-5.2); ALKALINE PHOSPHATASE 72 U/L (46-116); ALT/SGPT 23 U/L (7.0-40); AST/SGOT 21 U/L (<34); BILIRUBIN,TOTAL 0.3 MG/DL (0.3-1.2); BLOOD UREA NITROGEN 6 MG/DL (9-23); CALCIUM LEVEL 9.3 MG/DL (8.5-10.1); CARBON DIOXIDE LEVEL 28 MMOL/L (20-31); CHLORIDE LEVEL 113 MMOL/L (98-107); CREATININE FOR GFR 0.74 MG/DL (0.55-1.30); GLOMERULAR FILTRATION RATE > 60.0 (>51); GLUCOSE, FASTING 95 MG/DL (60-100); POTASSIUM SERUM 4.8 MMOL/L (3.5-5.1); SODIUM LEVEL 146 MMOL/L (136-145); TOTAL PROTEIN 6.5 G/DL (5.7-8.2)
[2023-12-24 12:00] VITALS: BP 130/80; TEMP 99.3; O2SAT 97
[2023-12-24] MEDS: AZITHROMYCIN 250MG TABLET PO SCH (12:14)
[2023-12-24 12:15] VITALS: BP 130/80
[2023-12-24] MEDS ORDERED: PILL CUTTER 1 EACH XX ONE (12:25)
[2023-12-24] MEDS ORDERED: RISATAB3 PO (15:36)
[2023-12-24] MEDS ORDERED: CELL250C PO (15:36)
[2023-12-24] MEDS ORDERED: AZIT500T5 PO (16:17)
[2023-12-25 16:43] LABS: CMV QUANT DNA PCR (PLASMA) Not Detected; CMV SOURCE Plasma; log10 CMV QN DNA P1 Not Detected log IU/mL
[2023-12-25 21:58] LABS: LYME TOTAL ANTIBODY CIA 1.01 Index (<=0.90)
[2023-12-26 09:08] LABS: EBV PCR QUAL WHOLE BLD Negative (Negative)
[2023-12-26 16:41] LABS: BORRELIA SPECIES DNA NOT DETECTED (NOT DETECT)
[2023-12-26 18:16] LABS: Babesia microti NOT DETECTED (NOT DETECT)
[2023-12-26 18:42] LABS: Anaplasma phagocytophilum NOT DETECTED (NOT DETECT)
[2023-12-26 19:07] LABS: Ehrlichia chaffeensis NOT DETECTED (NOT DETECT)
[2023-12-26 21:28] LABS: LYME AB IGG BY CIA 2.18 Index (<=0.90); LYME AB IGM BY CIA <= 0.90 Index (<=0.90)
== END 2023-12-24 18:14 | disposition home or self-care (01) | DRG 872 ==
LOC: M ED 10:24 → M ED INP 15:22 → OBSVTOIN 16:17 → M MSPAV 17:32
PROVIDERS: ADMIT Internal Medicine; ATTEND Internal Medicine
DX: A41.9 Sepsis, unspecified organism (principal); D84.821 Immunodeficiency due to drugs; Z94.0 Kidney transplant status; K57.32 Diverticulitis of large intestine without perforation or abscess without bleeding; A04.5 Campylobacter enteritis; E11.43 Type 2 diabetes mellitus with diabetic autonomic (poly)neuropathy; T45.1X5A Adverse effect of antineoplastic and immunosuppressive drugs, initial encounter; E11.9 Type 2 diabetes mellitus without complications; I10 Essential (primary) hypertension; E78.5 Hyperlipidemia, unspecified; J45.909 Unspecified asthma, uncomplicated; M10.9 Gout, unspecified; K21.9 Gastro-esophageal reflux disease without esophagitis; G47.33 Obstructive sleep apnea (adult) (pediatric); K31.84 Gastroparesis; E21.1 Secondary hyperparathyroidism, not elsewhere classified; R10.13 Epigastric pain; R07.9 Chest pain, unspecified; E66.9 Obesity, unspecified; G43.909 Migraine, unspecified, not intractable, without status migrainosus; K59.09 Other constipation; E87.6 Hypokalemia; Z79.84 Long term (current) use of oral hypoglycemic drugs; Z79.899 Other long term (current) drug therapy; Z88.5 Allergy status to narcotic agent; Z88.8 Allergy status to other drugs, medicaments and biological substances; Z86.16 Personal history of COVID-19; Z98.41 Cataract extraction status, right eye; Z98.42 Cataract extraction status, left eye; Z68.32 Body mass index [BMI] 32.0-32.9, adult

== ENCOUNTER → 2024-01-28 | Outpatient (CLI) | payer MEDICARE ==
[~2024-01-28] MED LIST changes: +AZEL1SPR3 NARES; +AZIT500T5 PO; +CELL250C PO; +CYCL1DRO10 OU; +FARX1TAB3 PO; +RISATAB3 PO
[2024-01-28 12:11] LABS: BASO % 0.5 % (0.0-1.0); EOS # 0.3 10^3/uL (0.0-0.5); EOS % 2.9 % (0.0-3.0); HEMATOCRIT 41.7 % (36.0-47.0); HEMOGLOBIN 13.1 g/dl (12.0-15.5); LYMPH # 2.9 10^3/uL (1.5-5.0); LYMPH % 33.3 % (24.0-44.0); MEAN CORPUSCULAR HEMOGLOBIN 29.2 pg (27.0-33.0); MEAN CORPUSCULAR HGB CONC 31.4 g/dl (32.0-36.5); MEAN CORPUSCULAR VOLUME 92.9 fl (80.0-96.0); MONO # 1.1 10^3/uL (0.0-0.8); MONO % 12.7 % (2.0-8.0); NEUTROPHILS # 4.4 10^3/uL (1.5-8.5); NEUTROPHILS % 50.3 % (36.0-66.0); PLATELET COUNT, AUTOMATED 292 10^3/uL (150-450); RED BLOOD COUNT 4.49 10^6/uL (4.00-5.40); WHITE BLOOD COUNT 8.7 10^3/uL (4.0-10.0)
[2024-01-28 12:31] LABS: MAU/CREAT RATIO 5.9 MCG/MG (0.0-30.0)
[2024-01-28 12:35] LABS: FREE T4 1.13 NG/DL (0.89-1.76); THYROID STIMULATING HORMONE 2.438 uIU/ML (0.55-4.78)
[2024-01-28 12:39] LABS: ALBUMIN 3.8 G/DL (3.2-5.2); ALKALINE PHOSPHATASE 87 U/L (46-116); ALT/SGPT 27 U/L (7.0-40); AST/SGOT 9 U/L (<34); BILIRUBIN,TOTAL 0.3 MG/DL (0.3-1.2); BLOOD UREA NITROGEN 20 MG/DL (9-23); CALCIUM LEVEL 10.4 MG/DL (8.5-10.1); CARBON DIOXIDE LEVEL 29 MMOL/L (20-31); CHLORIDE LEVEL 110 MMOL/L (98-107); CHOLESTEROL LEVEL 139 MG/DL (<200); CHOLESTEROL RISK RATIO 3.51 (<5); GLOMERULAR FILTRATION RATE > 60.0 (>51); GLUCOSE, FASTING 103 MG/DL (60-100); HDL CHOLESTEROL 39.5 MG/DL (>40); LDL CHOLESTEROL 60.5 MG/DL (<100); NON-HDL-C 99.5 MG/DL; SODIUM LEVEL 145 MMOL/L (136-145); TOTAL PROTEIN 7.3 G/DL (5.7-8.2); TRIGLYCERIDES LEVEL 195 MG/DL (<150)
[2024-01-28 12:59] LABS: HEMOGLOBIN A1c 6.5 % (4.0-6.0)
== END ==
LOC: M PLALAB 07:43
PROVIDERS: ATTEND Family Medicine
DX: E11.22 Type 2 diabetes mellitus with diabetic chronic kidney disease (principal); E78.2 Mixed hyperlipidemia; Z94.0 Kidney transplant status

== ENCOUNTER → 2024-01-29 | Outpatient (CLI) | payer MEDICARE ==
[2024-01-29 13:10] LABS: HEMATOCRIT 41.6 % (36.0-47.0); HEMOGLOBIN 12.9 g/dl (12.0-15.5); MEAN CORPUSCULAR HEMOGLOBIN 29.2 pg (27.0-33.0); MEAN CORPUSCULAR VOLUME 94.1 fl (80.0-96.0); PLATELET COUNT, AUTOMATED 282 10^3/uL (150-450); RED BLOOD COUNT 4.42 10^6/uL (4.00-5.40); WHITE BLOOD COUNT 8.3 10^3/uL (4.0-10.0)
[2024-01-29 13:34] LABS: C REACTIVE PROTEIN QUANTITATIV 1.2 MG/DL (<1.0)
[2024-01-29 13:35] LABS: RHEUMATOID FACTOR QUANT 7.2 IU/ML (<14)
[2024-01-29 13:37] LABS: ERYTHROCYTE SEDIMENTATION RATE 56 mm/hr (0-30)
[2024-01-30 12:12] LABS: CYCLIC CITRULLINATED PEPTIDE < 16 UNITS (<20)
== END ==
LOC: M PLALAB 09:41
PROVIDERS: ATTEND Internal Medicine Infectious Disease
DX: R76.8 Other specified abnormal immunological findings in serum (principal); M25.50 Pain in unspecified joint

== ENCOUNTER → 2024-02-21 | Outpatient (CLI) | payer MEDICARE ==
[2024-02-21 10:52] LABS: BASO # 0.1 10^3/uL (0.0-0.2); BASO % 0.8 % (0.0-1.0); EOS # 0.2 10^3/uL (0.0-0.5); HEMATOCRIT 41.7 % (36.0-47.0); LYMPH # 2.9 10^3/uL (1.5-5.0); LYMPH % 38.8 % (24.0-44.0); MEAN CORPUSCULAR HEMOGLOBIN 28.7 pg (27.0-33.0); MEAN CORPUSCULAR HGB CONC 31.2 g/dl (32.0-36.5); MEAN CORPUSCULAR VOLUME 92.1 fl (80.0-96.0); MONO % 13.1 % (2.0-8.0); NEUTROPHILS # 3.3 10^3/uL (1.5-8.5); PLATELET COUNT, AUTOMATED 266 10^3/uL (150-450); RED BLOOD COUNT 4.53 10^6/uL (4.00-5.40); WHITE BLOOD COUNT 7.6 10^3/uL (4.0-10.0)
[2024-02-21 10:58] LABS: ERYTHROCYTE SEDIMENTATION RATE 34 mm/hr (0-30)
== END ==
LOC: M PLALAB 09:11
PROVIDERS: ATTEND Internal Medicine Infectious Disease
DX: A69.20 Lyme disease, unspecified (principal)

== ENCOUNTER → 2024-02-29 | Outpatient (REF) | payer MEDICARE ==
[2024-02-29 19:02] LABS: ALBUMIN 3.9 G/DL (3.2-5.2); BILIRUBIN,DIRECT 0.1 MG/DL (<0.4); BILIRUBIN,TOTAL 0.4 MG/DL (0.3-1.2); TOTAL PROTEIN 7.6 G/DL (5.7-8.2)
== END ==
LOC: M LAB REF 17:24
PROVIDERS: ATTEND Internal Medicine Nephrology
DX: R94.5 Abnormal results of liver function studies (principal)

== ENCOUNTER → 2024-06-02 | Outpatient (CLI) | payer MEDICARE ==
[~2024-06-02] MED LIST changes: -ROSU20TA61 PO; +ROSU20TA86 PO
[2024-06-02 10:26] LABS: BASO # 0.1 10^3/uL (0.0-0.2); EOS # 0.3 10^3/uL (0.0-0.5); EOS % 3.8 % (0.0-3.0); HEMATOCRIT 41.1 % (36.0-47.0); HEMOGLOBIN 12.7 g/dl (12.0-15.5); LYMPH # 2.6 10^3/uL (1.5-5.0); LYMPH % 35.2 % (24.0-44.0); MEAN CORPUSCULAR HEMOGLOBIN 29.1 pg (27.0-33.0); MEAN CORPUSCULAR HGB CONC 30.9 g/dl (32.0-36.5); MEAN CORPUSCULAR VOLUME 94.1 fl (80.0-96.0); MONO # 0.9 10^3/uL (0.0-0.8); MONO % 12.8 % (2.0-8.0); NEUTROPHILS # 3.4 10^3/uL (1.5-8.5); NEUTROPHILS % 46.9 % (36.0-66.0); PLATELET COUNT, AUTOMATED 265 10^3/uL (150-450); RED BLOOD COUNT 4.37 10^6/uL (4.00-5.40); WHITE BLOOD COUNT 7.3 10^3/uL (4.0-10.0)
[2024-06-02 10:56] LABS: ALBUMIN 3.8 G/DL (3.2-5.2); ALKALINE PHOSPHATASE 78 U/L (35-104); ALT/SGPT 14 U/L (7.0-40); AST/SGOT < 8 U/L (<34); BILIRUBIN,TOTAL 0.4 MG/DL (0.3-1.2); BLOOD UREA NITROGEN 16 MG/DL (9-23); CALCIUM LEVEL 10.2 MG/DL (8.5-10.1); CARBON DIOXIDE LEVEL 29 MMOL/L (20-31); CHLORIDE LEVEL 110 MMOL/L (98-107); CHOLESTEROL LEVEL 147 MG/DL (<200); CHOLESTEROL RISK RATIO 2.87 (<5); CREATININE FOR GFR 0.93 MG/DL (0.55-1.30); GLOMERULAR FILTRATION RATE > 60.0 (>51); GLUCOSE, FASTING 91 MG/DL (60-100); HDL CHOLESTEROL 51.2 MG/DL (>40); LDL CHOLESTEROL 69.4 MG/DL (<100); NON-HDL-C 95.8 MG/DL; POTASSIUM SERUM 3.9 MMOL/L (3.5-5.1); SODIUM LEVEL 145 MMOL/L (136-145); TOTAL PROTEIN 7.3 G/DL (5.7-8.2); TRIGLYCERIDES LEVEL 132 MG/DL (<150)
[2024-06-02 11:28] LABS: HEMOGLOBIN A1c 6.3 % (4.0-6.0)
== END ==
LOC: M PLALAB 07:47
PROVIDERS: ATTEND Family Medicine
DX: E11.22 Type 2 diabetes mellitus with diabetic chronic kidney disease (principal); E78.2 Mixed hyperlipidemia; Z94.0 Kidney transplant status

== ENCOUNTER → 2024-06-16 | Outpatient (REF) | payer MEDICARE ==
[2024-06-16 15:30] LABS: APPEARANCE, URINE HAZY (CLEAR); BACTERIA, URINE AUTO NEGATIVE (NEGATIVE); BILIRUBIN, URINE AUTO NEGATIVE (NEGATIVE); BLOOD, URINE BLOOD NEGATIVE (NEGATIVE); CALCIUM OXALATE CRYSTALS MODERATE; COLOR, URINE YELLOW (YELLOW); GLUCOSE, URINE (UA) AUTO 3+ mg/dL (NEGATIVE); KETONE, URINE AUTO NEGATIVE (NEGATIVE); LEUKOCYTE ESTERASE, URINE AUTO TRACE (NEGATIVE); MUCUS, URINE SMALL (NEGATIVE); NITRITE, URINE AUTO NEGATIVE (NEGATIVE); PROTEIN, URINE AUTO NEGATIVE (NEGATIVE); RBC, URINE AUTO 1 /HPF (0-3); SPECIFIC GRAVITY URINE AUTO 1.029 (1.002-1.035); SQUAMOUS EPITHELIAL CELL UR AU 5 /HPF (0-6); UROBILINOGEN, URINE AUTO 0.2 mg/dL (0.0-2.0); WBC, URINE AUTO 6 /HPF (0-3)
== END ==
LOC: M SFHCWAGY 14:52
PROVIDERS: ATTEND Obstetrics & Gynecology
DX: R30.0 Dysuria (principal)

== ENCOUNTER → 2024-06-30 | Outpatient (REF) | payer MEDICARE | LOC: M LAB REF 17:17 | PROVIDERS: ATTEND Internal Medicine Nephrology | DX: Z94.0 Kidney transplant status (principal); Z48.22 Encounter for aftercare following kidney transplant ==

== ENCOUNTER → 2024-09-01 | Outpatient (CLI) | payer OTHER ==
[2024-09-01 11:29] LABS: BASO # 0.1 10^3/uL (0.0-0.2); BASO % 0.8 % (0.0-1.0); EOS # 0.4 10^3/uL (0.0-0.5); EOS % 4.4 % (0.0-3.0); HEMATOCRIT 42.9 % (36.0-47.0); LYMPH % 36.9 % (24.0-44.0); MEAN CORPUSCULAR HEMOGLOBIN 29.3 pg (27.0-33.0); MEAN CORPUSCULAR HGB CONC 30.3 g/dl (32.0-36.5); MEAN CORPUSCULAR VOLUME 96.8 fl (80.0-96.0); MONO % 12.4 % (2.0-8.0); NEUTROPHILS # 3.6 10^3/uL (1.5-8.5); NEUTROPHILS % 45.2 % (36.0-66.0); PLATELET COUNT, AUTOMATED 265 10^3/uL (150-450); RED BLOOD COUNT 4.43 10^6/uL (4.00-5.40)
[2024-09-01 11:47] LABS: HEMOGLOBIN A1c 5.9 % (4.0-6.0)
[2024-09-01 11:58] LABS: THYROID STIMULATING HORMONE 4.553 uIU/ML (0.55-4.78)
[2024-09-01 11:59] LABS: FREE T4 1.28 NG/DL (0.89-1.76)
[2024-09-01 12:00] LABS: CREATININE, URINE 152.8 MG/DL
[2024-09-01 12:02] LABS: ALBUMIN 3.8 G/DL (3.2-5.2); ALKALINE PHOSPHATASE 73 U/L (35-104); ALT/SGPT 13 U/L (7.0-40); AST/SGOT < 8 U/L (<34); BILIRUBIN,TOTAL 0.3 MG/DL (0.3-1.2); BLOOD UREA NITROGEN 20 MG/DL (9-23); CARBON DIOXIDE LEVEL 28 MMOL/L (20-31); CHLORIDE LEVEL 110 MMOL/L (98-107); CHOLESTEROL LEVEL 166 MG/DL (<200); CHOLESTEROL RISK RATIO 2.89 (<5); GLOMERULAR FILTRATION RATE > 60.0 (>51); GLUCOSE, FASTING 118 MG/DL (60-100); HDL CHOLESTEROL 57.3 MG/DL (>40); LDL CHOLESTEROL 63.7 MG/DL (<100); NON-HDL-C 108.7 MG/DL; POTASSIUM SERUM 4.2 MMOL/L (3.5-5.1); SODIUM LEVEL 145 MMOL/L (136-145); TOTAL PROTEIN 7.3 G/DL (5.7-8.2); TRIGLYCERIDES LEVEL 225 MG/DL (<150)
[2024-09-01 12:03] LABS: MAU/CREAT RATIO 9.8 MCG/MG (0.0-30.0)
== END ==
LOC: M PLALAB 07:47
PROVIDERS: ATTEND Family Medicine
DX: E11.22 Type 2 diabetes mellitus with diabetic chronic kidney disease (principal)

== ENCOUNTER → 2024-09-04 | Outpatient (CLI) | payer OTHER | LOC: M WHC 12:12 | PROVIDERS: ATTEND Family Medicine | DX: Z12.31 Encounter for screening mammogram for malignant neoplasm of breast (principal) ==

== ENCOUNTER → 2024-11-06 | Outpatient (REF) | payer MEDICARE ==
[~2024-11-06] MED LIST changes: +POTA20LI16 PO
== END ==
LOC: M LAB REF 17:07
PROVIDERS: ATTEND Internal Medicine Nephrology
DX: Z94.0 Kidney transplant status (principal); Z48.22 Encounter for aftercare following kidney transplant

== ENCOUNTER → 2024-11-13 | Outpatient (CLI) | payer OTHER | LOC: M PLAIMG 07:23 | PROVIDERS: ATTEND Chiropractor | DX: M99.03 Segmental and somatic dysfunction of lumbar region (principal) ==

== ENCOUNTER → 2025-03-20 | Outpatient (CLI) | payer OTHER ==
[2025-03-20 12:14] LABS: ALT/SGPT 15.0 U/L (7.0-40); AST/SGOT 11.0 U/L (<34); CALCIUM LEVEL 9.9 MG/DL (8.3-10.6); CARBON DIOXIDE LEVEL 28.0 MMOL/L (20-31); CHLORIDE LEVEL 107.0 MMOL/L (98-107); CHOLESTEROL LEVEL 153.0 MG/DL (<200); CHOLESTEROL RISK RATIO 2.63 (<5); CREATININE FOR GFR 0.86 MG/DL (0.55-1.30); GLOMERULAR FILTRATION RATE 77.3 (>45); LDL CHOLESTEROL 64.9 MG/DL (<100); NON-HDL-C 94.9 MG/DL; POTASSIUM SERUM 3.9 MMOL/L (3.5-5.1); SODIUM LEVEL 144.0 MMOL/L (136-145); TRIGLYCERIDES LEVEL 150.0 MG/DL (<150)
[2025-03-20 12:16] LABS: FREE T4 1.22 NG/DL (0.89-1.76)
[2025-03-20 12:17] LABS: BASO # 0.1 10^3/uL (0.0-0.2); BASO % 0.7 % (0.0-1.0); EOS # 0.3 10^3/uL (0.0-0.5); EOS % 3.6 % (0.0-3.0); LYMPH # 3.1 10^3/uL (1.5-5.0); LYMPH % 37.7 % (24.0-44.0); MONO # 1.0 10^3/uL (0.0-0.8); MONO % 12.0 % (2.0-8.0); NEUTROPHILS # 3.7 10^3/uL (1.5-8.5); NEUTROPHILS % 45.4 % (36.0-66.0); PLATELET COUNT, AUTOMATED 250 10^3/uL (150-450)
[2025-03-20 12:26] LABS: ESTIMATED AVERAGE GLUCOSE 143.0 MG/DL (60-110)
== END ==
LOC: M PLALAB 07:43
PROVIDERS: ATTEND Family Medicine
DX: E11.22 Type 2 diabetes mellitus with diabetic chronic kidney disease (principal); E78.2 Mixed hyperlipidemia

== ENCOUNTER → 2025-03-20 | Outpatient (CLI) | payer OTHER ==
[2025-03-20 12:14] LABS: ALT/SGPT 15.0 U/L (7.0-40); AST/SGOT 11.0 U/L (<34); CALCIUM LEVEL 9.9 MG/DL (8.3-10.6); CARBON DIOXIDE LEVEL 28.0 MMOL/L (20-31); CHLORIDE LEVEL 108.0 MMOL/L (98-107); CREATININE FOR GFR 0.85 MG/DL (0.55-1.30); GLOMERULAR FILTRATION RATE 78.4 (>45); MAGNESIUM LEVEL 1.8 MG/DL (1.8-2.4); PHOSPHORUS LEVEL 4.1 MG/DL (2.4-5.1); POTASSIUM SERUM 3.9 MMOL/L (3.5-5.1); SODIUM LEVEL 143.0 MMOL/L (136-145)
[2025-03-20 12:17] LABS: BASO # 0.1 10^3/uL (0.0-0.2); BASO % 0.6 % (0.0-1.0); EOS # 0.3 10^3/uL (0.0-0.5); EOS % 3.7 % (0.0-3.0); LYMPH # 3.2 10^3/uL (1.5-5.0); LYMPH % 38.4 % (24.0-44.0); MONO # 1.1 10^3/uL (0.0-0.8); MONO % 12.8 % (2.0-8.0); NEUTROPHILS # 3.7 10^3/uL (1.5-8.5); NEUTROPHILS % 44.1 % (36.0-66.0); PLATELET COUNT, AUTOMATED 261 10^3/uL (150-450)
[2025-03-20 13:50] LABS: TOTAL PROTEIN,RANDOM URINE 34.4 MG/DL (0.0-14.0)
[2025-03-20 14:08] LABS: APPEARANCE, URINE HAZY (CLEAR); BACTERIA, URINE AUTO NEGATIVE (NEGATIVE); BILIRUBIN, URINE AUTO 1+ (NEGATIVE); BLOOD, URINE BLOOD NEGATIVE (NEGATIVE); CALCIUM OXALATE CRYSTALS SMALL; GLUCOSE, URINE (UA) AUTO 3+ mg/dL (NEGATIVE); KETONE, URINE AUTO NEGATIVE (NEGATIVE); LEUKOCYTE ESTERASE, URINE AUTO 1+ (NEGATIVE); MUCUS, URINE SMALL (NEGATIVE); NITRITE, URINE AUTO NEGATIVE (NEGATIVE); PROTEIN, URINE AUTO NEGATIVE (NEGATIVE); RBC, URINE AUTO 5 /HPF (0-3); SPECIFIC GRAVITY URINE AUTO 1.039 (1.002-1.035); SQUAMOUS EPITHELIAL CELL UR AU 3 /HPF (0-6); UROBILINOGEN, URINE AUTO 0.2 mg/dL (0.0-2.0); WBC, URINE AUTO 15 /HPF (0-3)
== END ==
LOC: M PLALAB 07:39
PROVIDERS: ATTEND Nurse Practitioner Family
DX: Z94.0 Kidney transplant status (principal); N18.5 Chronic kidney disease, stage 5; D84.9 Immunodeficiency, unspecified; Z79.899 Other long term (current) drug therapy

== ENCOUNTER → 2025-03-27 | Outpatient (REF) | payer OTHER, MEDICARE | LOC: M LAB REF 15:35 | PROVIDERS: ATTEND Family Medicine | DX: N76.0 Acute vaginitis (principal) ==

== ENCOUNTER → 2025-05-20 | Outpatient (REF) | payer OTHER | LOC: M LAB REF 17:38 | PROVIDERS: ATTEND Internal Medicine Nephrology | DX: Z48.22 Encounter for aftercare following kidney transplant (principal); Z94.0 Kidney transplant status ==

== ENCOUNTER → 2025-06-08 | Outpatient (CLI) | payer OTHER ==
[2025-06-08 10:26] LABS: BASO # 0.1 10^3/uL (0.0-0.2); BASO % 0.8 % (0.0-1.0); EOS # 0.3 10^3/uL (0.0-0.5); EOS % 4.0 % (0.0-3.0); LYMPH # 2.7 10^3/uL (1.5-5.0); LYMPH % 37.8 % (24.0-44.0); MONO # 0.9 10^3/uL (0.0-0.8); MONO % 13.0 % (2.0-8.0); NEUTROPHILS # 3.2 10^3/uL (1.5-8.5); NEUTROPHILS % 44.1 % (36.0-66.0); PLATELET COUNT, AUTOMATED 246 10^3/uL (150-450)
[2025-06-08 10:32] LABS: FREE T4 1.22 NG/DL (0.89-1.76)
[2025-06-08 10:34] LABS: ALT/SGPT 15.0 U/L (7.0-40); AST/SGOT 10.0 U/L (<34); CALCIUM LEVEL 9.4 MG/DL (8.3-10.6); CARBON DIOXIDE LEVEL 31.0 MMOL/L (20-31); CHLORIDE LEVEL 107.0 MMOL/L (98-107); CHOLESTEROL LEVEL 159.0 MG/DL (<200); CHOLESTEROL RISK RATIO 2.87 (<5); CREATININE FOR GFR 0.81 MG/DL (0.55-1.30); GLOMERULAR FILTRATION RATE 83.1 (>45); LDL CHOLESTEROL 70.3 MG/DL (<100); NON-HDL-C 103.7 MG/DL; POTASSIUM SERUM 3.9 MMOL/L (3.5-5.1); SODIUM LEVEL 147.0 MMOL/L (136-145); TRIGLYCERIDES LEVEL 167.0 MG/DL (<150)
[2025-06-08 10:51] LABS: ESTIMATED AVERAGE GLUCOSE 140.0 MG/DL (60-110)
== END ==
LOC: M PLALAB 07:20
PROVIDERS: ATTEND Family Medicine
DX: E11.22 Type 2 diabetes mellitus with diabetic chronic kidney disease (principal); N18.9 Chronic kidney disease, unspecified